=== PATIENT | male | born 1935 | race Hispanic/Latino ===

== ENCOUNTER 2017-06-24 18:42 | Inpatient (IN) | payer MEDICARE, MEDICAID ==
[2017-06-24 19:21] VITALS: BMI 28.7
[2017-06-24] MEDS ORDERED: Albuterol-Ipratrop 3 mg / 0.5 (3 ml) UD IH STA (19:32)
--- NOTE | 2017-06-24 19:38 | ED PDOC ---
Arrival/HPI - General Chief Complaint: Weakness/Neurological Deficit Time Seen by Provider: 06/24/17 19:11 Historian: Patient - History of Present Illness Narrative History of Present Illness (Text): 06/24/17 19:42 A 81 year old male, whose past medical history includes hypertension, bipolar disorder, ventricular hernia, and diabetes, presents to the emergency department complaining of generalized weakness, near syncopal, and shortness of breath. Patient denies of any chest pain, nausea, vomiting, diarrhea, headache, or any other complaints. No PMD Symptom Onset: Sudden Symptom Course: Unchanged Activities at Onset: Light Context: Home Past Medical History - Provider Review Nursing Documentation Reviewed: Yes - Infectious Disease Hx of Infectious Diseases: None - Tetanus Immunization Tetanus Immunization: Unknown - Cardiac Hx Cardiac Disorders: No Hx Hypertension: No - Pulmonary Hx Tuberculosis: No - Neurological HX Cerebrovascular Accident: No Hx Seizures: No - Hematological/Oncological Hx Cancer: No - Genitourinary/Gynecological Hx Sexually Transmitted Diseases: No - Psychiatric Hx Depression: No Hx Emotional Abuse: No Hx Physical Abuse: No Hx Substance Use: No - Past Surgical History Past Surgical History: Unable to Obtain - Suicidal Assessment Feels Threatened In Home Enviroment: No Family/Social History - Physician Review Nursing Documentation Reviewed: Yes Family/Social History: No Known Family HX Smoking Status: Never Smoked Hx Alcohol Use: No Hx Substance Use: No Hx Substance Use Treatment: No Allergies/Home Meds Allergies/Adverse Reactions: Allergies No Known Allergies Allergy (Verified 10/12/13 10:33) Review of Systems - Physician Review All systems were reviewed & negative as marked: Yes - Review of Systems Constitutional: Other (generalized weakness). absent: Fevers Respiratory: SOB Cardiovascular: absent: Chest Pain, Syncope (near-syncopal episode) Gastrointestinal: absent: Diarrhea, Nausea, Vomiting Neurological: absent: Headache Physical Exam Vital Signs Reviewed: Yes Vital Signs Pulse Resp BP Pulse Ox 06/24/17 23:29 110/69 06/24/17 23:28 76 18 110/69 97 06/24/17 19:09 84 16 105/84 96 Blood Pressure: Normal Pulse: Regular Respiratory Rate: Other Pain Distress: None Mental Status: Positive for: Alert and Oriented X 3 - Systems Exam Head: Present: Atraumatic, Normocephalic Pupils: Present: PERRL Extroacular Muscles: Present: EOMI Conjunctiva: Present: Normal Mouth: Present: Moist Mucous Membranes Neck: Present: Normal Range of Motion Respiratory/Chest: Present: Wheezes (bilaterally) Cardiovascular: Present: Regular Rate and Rhythm, Normal S1, S2. No: Murmurs Abdomen: Present: Hernias (enlarged ventral hernia noticeable and reducable) Back: Present: Normal Inspection Upper Extremity: Present: Normal Inspection. No: Cyanosis, Edema Lower Extremity: Present: Edema (+1 pitting edema) Neurological: Present: GCS=15, CN II-XII Intact, Speech Normal Skin: Present: Warm, Dry, Normal Color. No: Rashes Psychiatric: Present: Alert, Oriented x 3, Normal Insight, Normal Concentration Medical Decision Making ED Course and Treatment: 06/24/17 19:45 Impression: 81 year old male with generalized weakness, near syncope, and shortness of breath. Plan: -- EKG -- Chest X-ray -- CT Head w/o contrast -- Lower Extremity Ultrasound -- Labs -- Duoneb -- Reassess and disposition Progress Notes: Reviewed EKG, NSR at 88 bpm. Inferior infarct. Non-specific ST/T wave changes. 06/24/17 22:17 CXR reviewed, shows minimally increased pulmonary vascular markings. Pt uncooperative while in US, Lower Extremity US unable to be completed. 06/24/17 22:[address] Estevez, who is aware and agrees with plan. Accepts pt in to her service. Pt will go to Telemetry observation for near-syncope and CHF. Requests Dr. Brian and Dr. Hill on consult. 06/25/17 00:21 CT Head shows: There is atrophy. There is chronic small vessel ischemic disease. Encephalomalacia in the right cerebellum. There is no hemorrhage or edema. Mild mucosal thickening of the ethmoid and frontal sinuses. The osseous structures are normal. IMPRESSION: No acute findings. - Lab Interpretations Lab Results: 06/24/17 19:55 06/24/17 19:55 Lab Results 06/24/17 19:55: WBC 9.8, RBC 4.31, Hgb 15.1, Hct 44.7, MCV 103.7, MCH 35.0, MCHC 33.8, RDW 14.4, Plt Count 135, MPV 11.2 H 06/24/17 19:55: PT 12.4, INR 1.09 H, APTT 30.4 06/24/17 19:55: Sodium 145, Potassium 4.5, Chloride 106, Carbon Dioxide 28, Anion Gap 15, BUN 30 H, Creatinine 1.1, Est GFR ( Amer) > 60, Est GFR ( Non-Af Amer) > 60, Random Glucose 107, Calcium 9.3, Total Bilirubin 0.7, AST 70 H, ALT 47, Alkaline Phosphatase 37 L, Lactate Dehydrogenase 583, Total Creatine Kinase 249 H, CK-MB (CK-2) 2.0, CK-MB (CK-2) % Cancelled, Troponin I 0.02, NT- Pro-B Natriuret Pep 1030 H, Total Protein 7.2, Albumin 3.9, Globulin 3.3, Albumin/Globulin Ratio 1.2 I have reviewed the lab results: Yes - RAD Interpretation Radiology Orders: 06/24/17 19:31 CHEST PORTABLE [RAD] Stat 06/24/17 19:32 DUPLEX LOWER EXTRM VEIN RIGHT [US] Stat 06/24/17 20:03 HEAD W/O CONTRAST [CT] Stat Pin Inserter: ED Physician - EKG Interpretation Interpreted by ED Physician: Yes Type: 12 lead EKG - Medication Orders Current Medication Orders: Discontinued Medications Albuterol/Ipratropium (Duoneb 3 Mg/0.5 Mg (3 Ml) Ud) 3 ml IH ONCE STA Stop: 06/24/17 19:33 Last Admin: 06/24/17 20:17 Dose: 3 ml Furosemide (Lasix) 40 mg IVP ONCE ONE Stop: 06/24/17 22:11 Last Admin: 06/24/17 23:29 Dose: 40 mg MAR Blood Pressure Document 06/24/17 23:29 EQ (Rec: 06/24/17 23:29 EQ [id number]) Blood Pressure Blood Pressure (100/60-150/90 mm Hg) 110/69 IVP Administration Document 06/24/17 23:29 EQ (Rec: 06/24/17 23:29 EQ [id number]) Charges for Administration # of IVP Administrations 1 Haloperidol Lactate (Haldol) 5 mg IVP STAT STA PRN Reason: Protocol Stop: 06/24/17 22:42 Last Admin: 06/24/17 22:48 Dose: 5 mg IVP Administration Document 06/24/17 22:48 EQ (Rec: 06/24/17 22:48 EQ [id number]) Charges for Administration # of IVP Administrations 1 Lorazepam (Ativan) 1 mg IVP ONCE ONE Stop: 06/24/17 20:54 Last Admin: 06/24/17 21:50 Dose: 1 mg IVP Administration Document 06/24/17 21:50 EQ (Rec: 06/24/17 22:26 EQ [id number]) Charges for Administration # of IVP Administrations 1 Lorazepam (Ativan) 1 mg IVP ONCE ONE Stop: 06/24/17 22:19 Last Admin: 06/24/17 22:47 Dose: 1 mg IVP Administration Document 06/24/17 22:47 EQ (Rec: 06/24/17 22:47 EQ [id number]) Charges for Administration # of IVP Administrations 1 - Scribe Statement The provider has reviewed the documentation as recorded by the Ewa Llanes Provider Scribe Attestation: All medical record entries made by the Corineibprecious were at my direction and personally dictated by me. I have reviewed the chart and agree that the record accurately reflects my personal performance of the history, physical exam, medical decision making, and the department course for this patient. I have also personally directed, reviewed, and agree with the discharge instructions and disposition. Disposition/Present on Arrival - Present on Arrival Any Indicators Present on Arrival: No History of DVT/PE: No History of Uncontrolled Diabetes: No Urinary Catheter: No History of Decub. Ulcer: No History Surgical Site Infection Following: None - Disposition Have Diagnosis and Disposition been Completed?: Yes Diagnosis: CHF (congestive heart failure), Near syncope, Bipolar disorder Disposition: HOSPITALIZED Disposition Time: 22:32 Patient Plan: Admission Patient Problems: Current Active Problems Problem Status Onset Bipolar disorder Acute CHF (congestive heart failure) Acute Near syncope Acute Condition: STABLE
[2017-06-24 20:09] LABS: HEMOGLOBIN 15.1 g/dL (14.0-18.0); MEAN CELL VOLUME 103.7 fl (80.0-105.0); MEAN CORPUSCULAR HGB CONC 33.8 g/dl (31.0-37.0); MEAN PLATELET VOLUME 11.2 fl (7.0-11.0); RBC 4.31 10^6/uL (3.5-6.1); RED CELL DISTRIBUTION WIDTH 14.4 % (11.5-14.5); WHITE BLOOD COUNT 9.8 10^3/ul (4.5-11.0)
[2017-06-24 20:28] LABS: ALB/GLOB RATIO 1.2 (1.1-1.8); ALBUMIN 3.9 g/dL (3.0-4.8); ALT/SGPT 47 U/L (7-56); AST/SGOT 70 U/L (17-59); CALCIUM 9.3 mg/dL (8.4-10.5); GFR AFRICAN-AMERICAN > 60; GFR NON-AFRICAN AMERICAN > 60; INR 1.09 (0.93-1.08); PARTIAL THROMBOPLASTIN TIME 30.4 Seconds (25.1-36.5); PROTHROMBIN TIME 12.4 SECONDS (9.4-12.5)
[2017-06-24 20:40] LABS: B-TYPE NATRIURETIC PEPTIDE 1030 pg/mL (0-450); TROPONIN I 0.02 ng/mL
[2017-06-24 20:54] LABS: BLOOD UREA NITROGEN 30 mg/dL (7-21)
--- NOTE | 2017-06-25 00:22 | CT ---
EXAM: CT Head Without Intravenous Contrast EXAM DATE/TIME: 06/24/2017 8:03 PM CLINICAL HISTORY: 81 years old, male; Signs and symptoms; Other: Syncope; Additional info: Near syncope TECHNIQUE: Axial computed tomography images of the head/brain without intravenous contrast. All CT scans at this facility use one or more dose reduction techniques, viz.: automated exposure control; ma/kV adjustment per patient size (including targeted exams where dose is matched to indication; i.e. head); or iterative reconstruction technique. Coronal and sagittal reformatted images were created and reviewed. COMPARISON: No relevant prior studies available. FINDINGS: There is atrophy. There is chronic small vessel ischemic disease. Encephalomalacia in the right cerebellum. There is no hemorrhage or edema. Mild mucosal thickening of the ethmoid and frontal sinuses. The osseous structures are normal. IMPRESSION: No acute findings.
[2017-06-25] MEDS ORDERED: Albuterol-Ipratrop 3 mg / 0.5 (3 ml) UD ONE (01:20)
[2017-06-25] MEDS ORDERED: Albuterol-Ipratrop 3 mg / 0.5 (3 ml) UD IH STA (01:28)
--- NOTE | 2017-06-25 02:13 | CP.PCM.PN ---
Subjective - Date & Time of Evaluation Date of Evaluation: 06/25/17 Time of Evaluation: 02:09 - Subjective Subjective: Patient was seen at bedside. Nurse calls and tells that patient has sob, wheezing, congestion, rales all over. 81 year old white male admitted with near syncopal episode, generalized weaknes , sob/CHF. Has PMH of HTN,bipolar disorder, ventral hernia,CHF. Objective - Vital Signs/Intake and Output Vital Signs (last 24 hours): Temp Pulse Resp BP Pulse Ox 97.9 F 88 17 113/64 96 06/25/17 01:00 06/25/17 01:00 06/25/17 01:00 06/25/17 01:00 06/25/17 01:00 - Labs Labs: PT 12.4 SECONDS (9.4-12.5) 06/24/17 19:55 INR 1.09 (0.93-1.08) H 06/24/17 19:55 APTT 30.4 Seconds (25.1-36.5) 06/24/17 19:55 Most Recent Lab Values WBC 9.8 10^3/ul (4.5-11.0) 06/24/17 19:55 RBC 4.31 10^6/uL (3.5-6.1) 06/24/17 19:55 Hgb 15.1 g/dL (14.0-18.0) 06/24/17 19:55 Hct 44.7 % (42.0-52.0) 06/24/17 19:55 MCV 103.7 fl (80.0-105.0) 06/24/17 19:55 MCH 35.0 pg (25.0-35.0) 06/24/17 19:55 MCHC 33.8 g/dl (31.0-37.0) 06/24/17 19:55 RDW 14.4 % (11.5-14.5) 06/24/17 19:55 Plt Count 135 10^3/uL (120.0-450.0) 06/24/17 19:55 MPV 11.2 fl (7.0-11.0) H 06/24/17 19:55 PT 12.4 SECONDS (9.4-12.5) 06/24/17 19:55 INR 1.09 (0.93-1.08) H 06/24/17 19:55 APTT 30.4 Seconds (25.1-36.5) 06/24/17 19:55 Sodium 145 mmol/L (132-148) 06/24/17 19:55 Potassium 4.5 mmol/L (3.6-5.0) 06/24/17 19:55 Chloride 106 mmol/L (98-107) 06/24/17 19:55 Carbon Dioxide 28 mmol/L (21-33) 06/24/17 19:55 Anion Gap 15 (10-20) 06/24/17 19:55 BUN 30 mg/dL (7-21) H 06/24/17 19:55 Creatinine 1.1 mg/dl (0.8-1.5) 06/24/17 19:55 Est GFR ( Amer) > 60 06/24/17 19:55 Est GFR (Non-Af Amer) > 60 06/24/17 19:55 Random Glucose 107 mg/dL (70-110) 06/24/17 19:55 Calcium 9.3 mg/dL (8.4-10.5) 06/24/17 19:55 Total Bilirubin 0.7 mg/dL (0.2-1.3) 06/24/17 19:55 AST 70 U/L (17-59) H 06/24/17 19:55 ALT 47 U/L (7-56) 06/24/17 19:55 Alkaline Phosphatase 37 U/L (38-126) L 06/24/17 19:55 Lactate Dehydrogenase 583 U/L (333-699) 06/24/17 19:55 Total Creatine Kinase 249 U/L (35-230) H 06/24/17 19:55 CK-MB (CK-2) 2.0 ng/mL (0.0-3.6) 06/24/17 19:55 CK-MB (CK-2) % Cancelled 06/24/17 19:55 Troponin I 0.02 ng/mL 06/24/17 19:55 NT-Pro-B Natriuret Pep 1030 pg/mL (0-450) H 06/24/17 19:55 Total Protein 7.2 g/dL (5.8-8.3) 06/24/17 19:55 Albumin 3.9 g/dL (3.0-4.8) 06/24/17 19:55 Globulin 3.3 gm/dL 06/24/17 19:55 Albumin/Globulin Ratio 1.2 (1.1-1.8) 06/24/17 19:55 - Constitutional Appears: Well, No Acute Distress - Head Exam Head Exam: ATRAUMATIC, NORMAL INSPECTION, NORMOCEPHALIC - Eye Exam Eye Exam: Normal appearance - ENT Exam ENT Exam: Normal External Ear Exam - Neck Exam Neck Exam: Normal Inspection - Respiratory Exam Respiratory Exam: Rales (Bilateral.), Rhonchi (Present.), NORMAL BREATHING PATTERN - Cardiovascular Exam Cardiovascular Exam: REGULAR RHYTHM - GI/Abdominal Exam GI & Abdominal Exam: absent: Distended - Rectal Exam Rectal Exam: Deferred - Exam Additional comments: Deferred. - Extremities Exam Extremities Exam: Normal Inspection, Pedal Edema (+) - Back Exam Back Exam: NORMAL INSPECTION - Neurological Exam Neurological Exam: Alert, Awake - Psychiatric Exam Psychiatric exam: Depressed, Normal Affect - Skin Skin Exam: Normal Color Assessment and Plan - Assessment and Plan (Free Text) Assessment: HTN. Bipolar disorder. Hx ventral hernia. Elevated BNP. Elevated CK. Elevated AST. Plan: Lasix 40 mg IV stat. Duoneb neb treatment stat. Tylenol 650 mg PO stat, then Q4H prn Temp > 100.4*F. Continue management as per PMD.
--- NOTE | 2017-06-25 08:37 | RAD ---
HISTORY: sob COMPARISON: 10/12/2013 FINDINGS: LUNGS: No active pulmonary disease. PLEURA: No significant pleural effusion identified, no pneumothorax apparent. CARDIOVASCULAR: Normal. OSSEOUS STRUCTURES: No significant abnormalities. VISUALIZED UPPER ABDOMEN: Normal. OTHER FINDINGS: None. IMPRESSION: No active disease.
[2017-06-25] MEDS: Divalproex 250 mg DR (BID formulation) PO SCH ×3 (09:39→19:59)
[2017-06-25] MEDS: Insulin Reg-LOW-Coverage SC SCH ×3 (13:20→22:00)
[2017-06-25] MEDS ORDERED: cefTRIAXone 1 gm 1 GM/100 ML BAG IVPB STA (18:45)
[2017-06-25] MEDS: Albuterol-Ipratrop 3 mg / 0.5 (3 ml) UD IH SCH (19:43)
--- NOTE | 2017-06-26 01:33 | CON ---
DATE: HISTORY OF PRESENT ILLNESS: This is a 81-year-old male with past medical history of hypertension, bipolar disorder, and diabetes, who came to hospital with generalized weakness and had a severe syncopal episode and called to evaluated the patient. CAT scan of the head was done, which was reported negative. The patient complained of generalized and shortness of breath. PAST MEDICAL HISTORY: As above. ALLERGIES: NO KNOWN DRUG ALLERGIES. REVIEW OF SYSTEMS: A 10-point review of system, the patient is confused and not following commands. PHYSICAL EXAMINATION: VITAL SIGNS: Blood pressure 105/84. HEENT: Normocephalic, atraumatic. NECK: Supple. NEUROLOGIC: Awake, drowsy, confused, not following simple commands. Pupils reactive. EOM intact. No facial asymmetry. Tongue midline. Motor: Spontaneous movement of the extremities noted. Deep tendon reflexes 1+. Both plantars are downgoing. Sensory appears intact. Cerebellar, gait deferred. LABORATORY DATA: WBC 9.8, hemoglobin 15.1, hematocrit 44.7, and platelets 135. Sodium 145, potassium 4.5, chloride 106, CO2 28, glucose 107, BUN 30, and creatinine 1.1. IMPRESSION: Encephalopathy, CAT of the head did not show any acute findings. PLAN: Workup in progress. Continue present management. We will do EEG. Follow up the results. Umer Brian MD
--- NOTE | 2017-06-26 01:49 | CON ---
DATE: 06/25/2017 LOCATION: The patient in room 376, bed 1. REASON FOR CONSULTATION: Hypertension and shortness of breath. HISTORY OF PRESENT ILLNESS: A 81-year-old male who was known to have bipolar disorder, hypertension, diabetes, high cholesterol, large ventral hernia came to Emergency Room at [facility] with generalized weakness, near syncope, shortness of breath. As per notes from the Emergency Room, the patient right now does not give answers to my questions, but he is awake and alert. The patient wear diapers because of urinary incontinence. PAST MEDICAL HISTORY: Positive for bipolar disorder, hypertension, diabetes, high cholesterol, large ventral hernia, and urinary incontinence. PERSONAL HISTORY: No history of smoking or drinking. ALLERGIES: NO KNOWN ALLERGIES. MEDICATIONS AT HOME: The patient was on lisinopril 2.5 mg daily, glipizide 2.5 daily, Zantac 150 b.i.d., Lasix 20 mg p.o. daily, Aricept 10 mg at bedtime, Depakote DR 750 t.i.d., Plavix 75 mg daily, Coreg 3.125 b.i.d., atorvastatin 80 mg daily, aspirin 81 mg daily, and Xanax 0.5 t.i.d. REVIEW OF SYSTEMS: All other systems reviewed, positive mentioned in the HPI, others were negative. PHYSICAL EXAMINATION: VITAL SIGNS: Blood pressure 145/80, respirations 19, pulse 60, and temperature 99.7. HEENT: Head is normocephalic. Eyes: Pupils normal. Conjunctivae normal. Nose and throat normal. NECK: JVP low. Carotids equal. THORAX: AP diameter normal. LUNGS: No rales. CARDIOVASCULAR: S1 and S2. ABDOMEN: Large ventral hernia. Protuberant abdomen. EXTREMITIES: No clubbing. No cyanosis. LABORATORY DATA: Shows WBC 9.8, hemoglobin 15.1, hematocrit 44.7 and platelet 135. Sodium 145, potassium 4.5, BUN 30, creatinine 1.1, glucose 144, other glucose 107. AST 70 and ALT 47. Troponin 0.02. NT-pro brain natriuretic peptide 1030. Total protein 7.2, albumin 3.9. Prothrombin time 12.4. INR 1.09. PTT 30.4. Chest x-ray is clear. Echocardiogram regular sinus rhythm. Extremities ultrasound, the patient was sent for extremity ultrasound, but the patient was uncooperative, it could not be done. DIAGNOSES: Shortness of breath, the patient might have respiratory tract infection, bipolar disorder, hypertension, diabetes, high cholesterol, large ventral hernia, near syncope, and urinary incontinence. PLAN: The patient is on aspirin 81 mg daily, carvedilol 3.125 b.i.d., Depakote DR 750 p.o. t.i.d., DuoNeb hand nebulizer therapy, and glipizide 2.5 p.o. before meals daily. The patient is on Lasix 40 IV b.i.d., we will change it to 20 IV daily, Lipitor 80 mg daily, Pepcid 150 b.i.d., Plavix 75 daily, lisinopril 2.5 daily, and Xanax 0.5 t.i.d. We will add Rocephin 1 g IV daily and erythromycin 500 mg IV daily and we will do an echocardiogram to evaluate LV function and we will follow with you. Parker Mccall MD
--- NOTE | 2017-06-26 02:45 | HP ---
CHIEF COMPLAINT: Weakness, almost passing out. HISTORY OF PRESENT ILLNESS: Mr. Steven Morris is a 81-year-old male with a past medical history of schizophrenia, hypertension, bipolar, anterior abdominal wall hernia, diabetes mellitus came to the emergency department complaining of generalized weakness and near syncope, shortness of breath. The patient is a poor historian. Denies fever and chills. No nausea, vomiting, or diarrhea. No headaches. No injuries. The patient is a resident of [facility]. PAST MEDICAL HISTORY: Schizophrenia, bipolar, anterior abdominal wall hernia, hypertension, and diabetes mellitus. FAMILY HISTORY: Father and mother noncontributory. HABITS: Never smoked. No drugs. No ethanol. ALLERGIES: THE PATIENT IS NOT ALLERGIC WITH ANY MEDICATION. REVIEW OF SYSTEMS: The patient is here examined at the bedside in his room. He is on one-to-one. He was slight weak and lethargic, not on his baseline. More confused. Complaining of shortness of breath. No fever. No chills. No chest pain. Feeling of syncope. Presyncope episode. No diarrhea, nausea, or vomiting. No headache. No dizziness. PHYSICAL EXAMINATION VITAL SIGNS: Temperature 98.6, pulse 84, respirations 16, blood pressure 105/84, and pulse oximetry 96%. HEENT: Head normocephalic, atraumatic. Eyes: PERRLA. Extraocular muscles intact. Conjunctivae clear. Nose patent. Mucous membranes moist. NECK: Supple. No carotid bruits or thyromegaly. CHEST: Bilaterally symmetrical. HEART: S1 and S2 positive. LUNGS: Clear to auscultation. ABDOMEN: Soft. Bowel sounds positive. No organomegaly. A large ventral hernia notable and reducible. EXTREMITIES: Trace edema. No cyanosis. NEUROLOGICAL: Awake and alert. Speech is normal, but he is sleepy and arousable. Moving all four extremities. Does not look like any focal deficit. LABORATORY DATA: White blood cells 9.8, hemoglobin 15.5, hematocrit 44.7, and platelets 135,000. Sodium 145, potassium 4.5, BUN 30, creatinine 1.1, glucose 107. ASSESSMENT AND PLAN: Mr. Steven Morris is a 81-year-old male came with generalized weakness and near syncope, shortness of breath, history of hypertension, hypercholesterolemia, history of bipolar, and schizophrenia. We admitted the patient. Neurology consult called with Dr. Brian. CAT scan of the head was done and reviewed by me. Seen by Dr. Buenrostro, [facility] physician. For shortness of breath, wheezing, congestion, rales all over, got dose of Lasix. Rule out congestive heart failure and history of anterior abdominal wall ventral hernia. Cardiology consult called. Neurology consult called. Repeat labs. We will follow up. January Estevez MD
[2017-06-26 07:37] LABS: CALCIUM 8.8 mg/dL (8.4-10.5)
[2017-06-26 07:50] LABS: HEMOGLOBIN 15.1 g/dL (14.0-18.0); MEAN CELL VOLUME 103.7 fl (80.0-105.0); MEAN CORPUSCULAR HEMOGLOBIN 34.5 pg (25.0-35.0); MEAN CORPUSCULAR HGB CONC 33.3 g/dl (31.0-37.0); MEAN PLATELET VOLUME 11.4 fl (7.0-11.0); RBC 4.38 10^6/uL (3.5-6.1); RED CELL DISTRIBUTION WIDTH 15.1 % (11.5-14.5)
[2017-06-26] MEDS: Insulin Reg-LOW-Coverage SC SCH ×4 (08:21→21:45)
[2017-06-26] MEDS: Albuterol-Ipratrop 3 mg / 0.5 (3 ml) UD IH SCH ×3 (08:26→21:21)
--- NOTE | 2017-06-26 10:12 | CARD ---
APPROVED REPORT EKG Measurement Heart [id number] <Conclusion> Normal sinus rhythm Low voltage QRS Inferior infarct, age undetermined Cannot rule out Anteroseptal infarct, age undetermined Abnormal ECG
[2017-06-26 12:40] LABS: HEPATITIS B SURFACE AG NEGATIVE (NEGATIVE)
[2017-06-26 12:46] LABS: HEPATITIS A IGM NEGATIVE (NEGATIVE); HEPATITIS B CORE AB Negative (NEGATIVE)
[2017-06-26] MEDS: Divalproex 250 mg DR (BID formulation) PO SCH ×3 (12:48→17:08)
[2017-06-26] MEDS: cefTRIAXone 1 gm 1 GM/100 ML BAG IVPB SCH (12:52)
--- NOTE | 2017-06-26 13:02 | US ---
PROCEDURE: Right lower extremity venous US HISTORY: Leg pain and swelling. Evaluate for DVT. PHYSICIAN(S): Denis Sharif M.D. TECHNIQUE: Duplex sonography and color-flow Doppler with graded compression were used to evaluate the deep venous system of the right lower extremity. FINDINGS: The patient became combative and refused the lower portion of the examination. The visualized deep venous system of the upper right extremity is normal and compressible. The right popliteal and tibial veins are not imaged. IMPRESSION: 1. No sonographic evidence for deep venous thrombosis in the visualized segments of the right lower extremity. 2. Very limited study. The lower aspect of the examination was not completed
--- NOTE | 2017-06-26 13:28 | CP.PCM.PN ---
<AsherJennifer - Last Filed: 06/26/17 13:43> Subjective - Date & Time of Evaluation Date of Evaluation: 06/26/17 Time of Evaluation: 10:00 - Subjective Subjective: Neurology Progress Note PGY-[address] Brian Pt is forgetful and answered "I don't know" to many questions. He did not remember what brought him in the the hospital. Objective - Vital Signs/Intake and Output Vital Signs (last 24 hours): Temp Pulse Resp BP Pulse Ox 97.1 F L 102 H 22 125/85 93 L 06/26/17 08:00 06/26/17 13:11 06/26/17 08:00 06/26/17 13:11 06/26/17 08:00 Intake and Output: 06/26/17 06/26/17 06:59 18:59 Intake Total 120 Output Total 250 Balance -130 - Medications Medications: Current Medications Acetaminophen (Tylenol 325mg Tab) 650 mg PO Q4H PRN PRN Reason: Temperature Last Admin: 06/25/17 22:34 Dose: 650 mg Albuterol/Ipratropium (Duoneb 3 Mg/0.5 Mg (3 Ml) Ud) 3 ml IH [id number] [facility] Last Admin: 06/26/17 08:26 Dose: 3 ml Alprazolam (Xanax) 0.5 mg PO TID [facility] PRN Reason: Protocol Stop: 07/02/17 10:01 Last Admin: 06/25/17 19:59 Dose: Not Given Aspirin (Aspirin Chewable) 81 mg PO DAILY [facility] Last Admin: 06/26/17 12:49 Dose: 81 mg Atorvastatin Calcium (Lipitor) 80 mg PO 1800 [facility] Last Admin: 06/25/17 18:25 Dose: 80 mg Carvedilol (Coreg) 3.125 mg PO BID [facility] Last Admin: 06/26/17 13:11 Dose: 3.125 mg Clopidogrel Bisulfate (Plavix) 75 mg PO DAILY [facility] Last Admin: 06/26/17 12:52 Dose: 75 mg Divalproex Sodium (Depakote Dr (*Bid*)) 750 mg PO TID [facility] Last Admin: 06/26/17 12:48 Dose: 750 mg Donepezil HCl (Aricept) 10 mg PO HS [facility] Last Admin: 06/25/17 22:34 Dose: Not Given Furosemide (Lasix) 20 mg IVP DAILY [facility] Last Admin: 06/26/17 12:49 Dose: 20 mg Glipizide (Glucotrol) 2.5 mg PO ACB [facility] Last Admin: 06/26/17 08:55 Dose: 2.5 mg Ceftriaxone Sodium (Rocephin 1 Gram Ivpb) 1 gm in 100 mls @ 100 mls/hr IVPB DAILY [facility] PRN Reason: Protocol Stop: 07/03/17 10:01 Last Admin: 06/26/17 12:52 Dose: 100 mls/hr Insulin Human Regular (Humulin R Low) 0 units SC ACHS [facility] PRN Reason: Protocol Last Admin: 06/26/17 12:43 Dose: Not Given Lisinopril (Zestril) 2.5 mg PO DAILY [facility] Last Admin: 06/25/17 09:40 Dose: 2.5 mg - Labs Labs: 06/26/17 06:30 06/26/17 06:30 PT 12.4 SECONDS (9.4-12.5) 06/24/17 19:55 INR 1.09 (0.93-1.08) H 06/24/17 19:55 APTT 30.4 Seconds (25.1-36.5) 06/24/17 19:55 - Constitutional Appears: No Acute Distress - Head Exam Head Exam: ATRAUMATIC, NORMAL INSPECTION, NORMOCEPHALIC - Eye Exam Eye Exam: EOMI, Normal appearance, PERRL Pupil Exam: NORMAL ACCOMODATION - ENT Exam ENT Exam: Mucous Membranes Dry - Neck Exam Additional comments: supple - Respiratory Exam Respiratory Exam: Clear to Ausculation Bilateral, Rales, Wheezes, NORMAL BREATHING PATTERN - Cardiovascular Exam Cardiovascular Exam: REGULAR RHYTHM, +S1, +S2. absent: Murmur - GI/Abdominal Exam GI & Abdominal Exam: Soft, Normal Bowel Sounds. absent: Guarding, Rigid, Tenderness - Extremities Exam Extremities Exam: Pedal Edema. absent: Calf Tenderness - Neurological Exam Neurological Exam: Awake Additional comments: AAOx2 Speech slow but fluent Recall 0 Motor 4+/5 all extremities Sensory intact - Psychiatric Exam Psychiatric exam: Normal Affect, Normal Mood - Skin Skin Exam: Dry, Warm Assessment and Plan - Assessment and Plan (Free Text) Plan: Consult: Near syncope and weakness. Confusion Mr Morris, 81M, whose PMH includes CHF, CAD on ASA/Plavix, hypertension, diabetes , and bipolar disorder/Schizoprenia, presents to the emergency department on c/o generalized weakness, near syncope, and shortness of breath. On admission, pt had a mild Temperature T-MAX at 99.9. HR 124. POx 92 on NC. CBC normal except MCV 103.7. Trop is negative. BNP 1030. CXR showed minimally increased pulmonary vascular markings. Pt uncooperative while in US, Lower Extremity US was nunable to be completed. CT head w/o contrast showed no acute finding. (+) Encephalomalacia R cerebellum, no hemorrhage or edema. (+) atropy, chronic small vessel ischemic disease. Mild mucosal thickening in ethmoid and frontal sinuses. BP is 97/63 this AM which likely contribute to the VAMSHI, with creatinine rising from 1.1 to 2.6. AMS likely due to cerebral hypoperfusion secondary CHF exacerbation, BP 97/63, VAMSHI CHF s/p 4 doses of lasix IV 40 in a day - ASA 81 and Lipitor high-dose for stroke prevention - Maintain SBP above 120 - Maintain blood glucose 140-180 - Avoid rapid movement - Neurology will sign off - Continue medical management per primary team Suspected past stroke - (+) Encephalomalacia R cerebellum Tmax 99.9. s/p Ceftriaxone x 1. s/r/d/w Dr. Brian <Don Brian - Last Filed: 06/26/17 15:22> Objective - Vital Signs/Intake and Output Vital Signs (last 24 hours): Temp Pulse Resp BP Pulse Ox 97.1 F L 102 H 22 125/85 93 L 06/26/17 08:00 06/26/17 13:11 06/26/17 08:00 06/26/17 13:11 06/26/17 08:00 Intake and Output: 06/26/17 06/26/17 06:59 18:59 Intake Total 120 Output Total 250 Balance -130 - Medications Medications: Current Medications Acetaminophen (Tylenol 325mg Tab) 650 mg PO Q4H PRN PRN Reason: Temperature Last Admin: 06/25/17 22:34 Dose: 650 mg Albuterol/Ipratropium (Duoneb 3 Mg/0.5 Mg (3 Ml) Ud) 3 ml IH [id number] [facility] Last Admin: 06/26/17 15:17 Dose: 3 ml Alprazolam (Xanax) 0.5 mg PO TID [facility] PRN Reason: Protocol Stop: 07/02/17 10:01 Last Admin: 06/26/17 15:16 Dose: Not Given Aspirin (Aspirin Chewable) 81 mg PO DAILY [facility] Last Admin: 06/26/17 12:49 Dose: 81 mg Atorvastatin Calcium (Lipitor) 80 mg PO 1800 [facility] Last Admin: 06/25/17 18:25 Dose: 80 mg Carvedilol (Coreg) 3.125 mg PO BID [facility] Last Admin: 06/26/17 13:11 Dose: 3.125 mg Clopidogrel Bisulfate (Plavix) 75 mg PO DAILY [facility] Last Admin: 06/26/17 12:52 Dose: 75 mg Divalproex Sodium (Depakote Dr (*Bid*)) 750 mg PO TID [facility] Last Admin: 06/26/17 15:17 Dose: Not Given Donepezil HCl (Aricept) 10 mg PO HS [facility] Last Admin: 06/25/17 22:34 Dose: Not Given Furosemide (Lasix) 20 mg IVP DAILY [facility] Last Admin: 06/26/17 12:49 Dose: 20 mg Glipizide (Glucotrol) 2.5 mg PO ACB [facility] Last Admin: 06/26/17 08:55 Dose: 2.5 mg Ceftriaxone Sodium (Rocephin 1 Gram Ivpb) 1 gm in 100 mls @ 100 mls/hr IVPB DAILY [facility] PRN Reason: Protocol Stop: 07/03/17 10:01 Last Admin: 06/26/17 12:52 Dose: 100 mls/hr Insulin Human Regular (Humulin R Low) 0 units SC [facility] PRN Reason: Protocol Last Admin: 06/26/17 12:43 Dose: Not Given Lisinopril (Zestril) 2.5 mg PO DAILY [facility] Last Admin: 06/25/17 09:40 Dose: 2.5 mg - Labs Labs: 06/26/17 06:30 06/26/17 06:30 PT 12.4 SECONDS (9.4-12.5) 06/24/17 19:55 INR 1.09 (0.93-1.08) H 06/24/17 19:55 APTT 30.4 Seconds (25.1-36.5) 06/24/17 19:55 Attending/Attestation - Attestation I have personally seen and examined this patient.: Yes I have fully participated in the care of the patient.: Yes I have reviewed all pertinent clinical information, including history, physical exam and plan: Yes
--- NOTE | 2017-06-26 16:21 | EEG ---
DATE: ELECTROENCEPHALOGRAM DIAGNOSIS: Altered mental status. CONDITION OF THE RECORDING: Drowsy. MEDICATIONS: Reviewed by nurse's reconciliation sheet. INTERPRETATION: This is a 16-channel international recording. Background activity of this tracing was composed of 8 cycles per second. There is a small amount of beta activity of 16 to 20 cycles per second seen in this recording. There was small amount of theta activity of 5 to 7 cycles per second seen in this tracing. Drowsiness was characterized by mixed beta and theta activities. Sleep was characterized by vertex transient waves and sleep spindles. Photic stimulation showed no change in tracing. No paroxysmal activity is noted in this recording. CONCLUSION: This is a normal drowsy EEG. No evidence of any epileptiform activity. Please clinically correlate. Don Brian MD
[2017-06-26] MEDS: Sodium Chloride 0.9% 1,000 ML IV SCH (16:54)
--- NOTE | 2017-06-26 18:18 | CARD ---
APPROVED REPORT EXAM: Two-dimensional and M-mode echocardiogram with Doppler and color Doppler. INDICATION Dyspnea LV Function:SystolicDiastolic 2D DIMENSIONS Left Atrium (2D)3.7 (1.6-4.0cm)IVSd1.4 (0.7-1.1cm) LVDd4.9 (3.9-5.9cm)PWd1.2 (0.7-1.1cm) M-Mode DIMENSIONS Aortic Root3.10 (2.2-3.7cm)Aortic Cusp Exc.1.50 (1.5-2.0cm) Aortic Valve AoV Peak [id number]/Levi Peak GR.5mmHg Mitral Valve E/A ratio0.0 TDI E/Lateral E'0.0E/Medial E'0.0 Tricuspid Valve TR Peak [id number] [id number] Peak Gr.20mmHg [id number] LEFT VENTRICLE The left ventricle is normal size. There is mild concentric left ventricular hypertrophy. Proximal septal thickening is noted. The systolic function is mildly impaired.40-45% There is mild hypokinesis in the apical anterior wall. Transmitral Doppler flow pattern is Grade III-reversible restrictive diastolic dysfunction. No left ventricle thrombus noted on this study. There is no ventricular septal defect visualized. There is no left ventricular aneurysm. There is no mass noted in the left ventricle. RIGHT VENTRICLE The right ventricle is normal size. There is normal right ventricular wall thickness. The right ventricular systolic function is normal. ATRIA The left atrium size is normal. The right atrium size is normal. The interatrial septum is intact with no evidence for an atrial septal defect. AORTIC VALVE The aortic valve is calcified but opens well. The aortic valve is moderately sclerotic. There is trace to mild aortic regurgitation. Aortic Sclerosis Vs Mild There is no aortic valvular vegetation. MITRAL VALVE The mitral valve is thickened but opens well. Mitral regurgitation is trace. There is no mitral valve stenosis. There is no evidence of mitral valve prolapse. TRICUSPID VALVE The tricuspid valve leaflets are thickened , but open well. There is trace to mild tricuspid regurgitation.RVSP-30 mmof hg. There is no tricuspid valve stenosis. There is no tricuspid valve prolapse or vegetation. PULMONIC VALVE The pulmonic valve is not well visualized. GREAT VESSELS The aortic root is normal in size. The ascending aorta is normal in size. The pulmonary artery is normal. The IVC was not visualized. PERICARDIAL EFFUSION There is no pleural effusion. There is no pericardial effusion. <Conclusion> The left ventricle is normal size. There is mild concentric left ventricular hypertrophy. The systolic function is mildly impaired.40-45% There is trace to mild aortic regurgitation. Aortic Sclerosis Vs Mild Mitral regurgitation is trace. There is trace to mild tricuspid regurgitation.RVSP-30 mmof hg. TDS poor sonic Window. Transmitral Doppler flow pattern is Grade III-reversible restrictive diastolic dysfunction.
[2017-06-26 18:49] LABS: HEPATITIS C ANTIBODY Negative (NEGATIVE)
--- NOTE | 2017-06-26 21:06 | PN ---
DATE: 06/26/2017 REASON FOR CONSULTATION AND FOLLOWUP: Hypertension and shortness of breath. SUBJECTIVE: The patient is lying flat on the bed. Denies any chest pain; shortness of breath, or any palpitation. OBJECTIVE: GENERAL: Not in apparent distress, lying flat with one-to-one observation. VITAL SIGNS: As follows; temperature afebrile, heart rate 80, and blood pressure 125/85. HEENT: PERRLA. Extraocular muscles intact. NECK: Supple. No carotid bruit or thyromegaly. CHEST: Clear to auscultation. HEART: S1 and S2 regular. ABDOMEN: Soft. EXTREMITIES: Clubbing and cyanosis negative. LABORATORY DATA: WBC 23, hemoglobin , hematocrit 45.4, and platelet count 147. Chemistry shows sodium 140, potassium , chloride 103, CO2 of 28, anion gap of 16, BUN 52, and creatinine 2.6. IMPRESSION: Altered mental status one-to-one observation, chronic heart failure, renal insufficiency acute on chronic, chronic kidney disease, shortness of breath secondary to respiratory tract infection, bipolar, depression, diabetes, hypertension, hyperlipidemia with large ventral hernia, urinary incontinence, came with a normal kidney, today creatinine went up to 2.6, probably acute kidney injury, probably secondary to dialysis, and rule out obstructive uropathy. Though, the patient's BNP is elevated, but the patient is not in failure, we will give a gentle hydration. RECOMMENDATIONS: We will give gentle hydration. Get echo to assess LV function and hold Lasix for now. We will consider ultrasound of the bladder kidney to rule out any obstructive uropathy. We will follow with you. Thank you Dr. Estevez for providing us the opportunity in taking care of Steven Morris. Parker Hill MD
--- NOTE | 2017-06-26 23:38 | PN ---
DATE: SUBJECTIVE: The patient is a 81-year-old male. The patient is seen and examined at the bedside, looking comfortable. No nausea, vomiting, or diarrhea. No hematemesis or hematochezia. He is confused, but awake and alert. No fever. No chills. No headache. No dizziness. PHYSICAL EXAMINATION: VITAL SIGNS: Temperature 97.2, pulse is 93, blood pressure 112/79, and respiratory rate is 20. HEENT: Head; normocephalic and atraumatic. Eyes; PERRLA. Extraocular muscles intact. Conjunctivae clear. Nose patent. Mucous membranes are moist. NECK: Supple. No carotid bruits, JVD or thyromegaly. CHEST: Bilaterally symmetrical. HEART: S1 and S2 positive. LUNGS: Clear to auscultation. ABDOMEN: Soft. Bowel sounds present. No organomegaly. EXTREMITIES: No edema. No cyanosis. NEUROLOGIC: The patient is awake and alert. Moving all four extremities. No focal deficits. MEDICATIONS: Donepezil, aspirin, carvedilol, Depakote, DuoNeb, glipizide, Lipitor, Plavix, Rocephin, Zestril, Xanax, and Tylenol. LABORATORY DATA: White blood cell 23, hemoglobin 15.5, hematocrit 45.4, and platelets 147. Sodium 143, potassium 4.3, BUN 52, creatinine 2.3, and glucose 124. ASSESSMENT AND PLAN: Mr. Steven Morris is a 81-year-old male with leukocytosis; renal insufficiency; hyperglycemia; congestive heart failure; hepatitis profile is negative; seen by neurologist Dr. Don Brian for presyncope; history of coronary artery disease, on aspirin and Plavix; hypertension; bipolar disorder; schizophrenia; and came with generalized weakness, near syncope, and shortness of breath. On admission has mild temperature T-max of 99.9. Chest x-ray showed minimally increased pulmonary vascular marking. Lower extremity ultrasound was unable to be completed because the patient was noncompliant. CT of the head showed no acute finding. Positive encephalomalacia. Right cerebellum, no hemorrhage or edema atrophy, chronic small vessel ischemic diseases, mild mucosal thickening in the ethmoid sinus and frontal sinus to rule out sinusitis. Creatinine is rising. January Estevez MD [facility]
[2017-06-27] MEDS: Albuterol-Ipratrop 3 mg / 0.5 (3 ml) UD IH SCH ×6 (02:14→19:49)
--- NOTE | 2017-06-27 06:28 | CON ---
DATE: 06/26/2017 PULMONARY CONSULTATION REFERRING PHYSICIAN: January Estevez MD. REASON FOR CONSULTATION: Shortness of breath, cough. HISTORY OF PRESENT ILLNESS: This is a 81-year-old gentleman, known history of schizophrenia, hypertension, bipolar disorder, history of diabetes, brought into Emergency Room with generalized weakness, not feeling well, near syncope episode, shortness of breath. No hemoptysis, no hematemesis, no hematuria, no diarrhea reported. At times, he is agitated, under one to one supervision. PAST MEDICAL HISTORY: Schizophrenia, hypertension, diabetes, may have bipolar disorder. SOCIAL HISTORY: Nonsmoker, nondrinker. FAMILY HISTORY: No significant cardiopulmonary disease reported. ALLERGIES: NONE KNOWN. MEDICATIONS: He is on Aricept 10 mg at bedtime, aspirin 81 mg daily, Coreg 3.125 mg twice a day, Depakote 750 mg three times a day, DuoNeb q. 6 hours, glipizide 2.5 mg a.c.b., insulin coverage, Lipitor 80 mg daily, Plavix 75 mg daily, Rocephin 1 g daily, IV fluid normal saline 50 mL per hour, Tylenol p.r.n., Xanax 0.5 mg three times a day, Zestril 2.5 mg daily. REVIEW OF SYSTEMS: No reported headache, no rhinitis. He has some cough and shortness of breath. No chest pain, no nausea, no vomiting, no diarrhea, no dysuria, no leg pain or leg swelling. PHYSICAL EXAMINATION: GENERAL: Lying in the bed, in no acute distress. VITAL SIGNS: Temperature 98, heart rate is 96, respiratory rate is 20, blood pressure 112/79, pulse ox is 92% on nasal cannula. HEENT: Moist mucous membranes. Crowded airway. Mallampati score is IV. NECK: Supple. No JVD. LUNGS: Decreased scattered rhonchi. HEART: S1 and S2. ABDOMEN: Soft, nontender. No organomegaly. EXTREMITIES: No edema. NEUROLOGICALLY: Awake, alert, follow simple commands. LABORATORY DATA: Shows hemoglobin 15.1, hematocrit 45.4, WBC 23,000, platelet count is 147. INR 1.09, PTT is 30. Sodium 143, potassium 4.3, chloride 103, bicarbonate 28, BUN 52, creatinine 2.6, glucose 122, hemoglobin A1c is 6.1, calcium is 8.8. ProBNP 2930. Cholesterol is 89, TSH 3.28. He had echocardiogram done, which shows LV ejection fraction estimated about 40% to 45%. The right ventricular systolic pressure is about 30. CAT scan of the head was done on admission showed no acute finding. He had extremity ultrasound done on admission, which shows no sonography evidence of DVT, has poor study. IMPRESSION AND PLAN: Cardiomyopathy with decreased left ventricular function, coronary artery disease, hypertension, diabetes, bipolar-schizophrenia disorder, agitated at times, may have bronchitis. There is no severe headache. There is no spiking fever. T-max was 99.9. Getting neurology and cardiac workup done. Pulmonary point of view, keep head at 45 degrees, supplement oxygen, titer to pulse oximetry 94 and above, gastric prophylaxis and deep venous thrombus prophylaxis, fall precaution. Thank you and we will follow with you. Parker Beasley MD
[2017-06-27 07:22] LABS: MEAN CELL VOLUME 103.4 fl (80.0-105.0); MEAN CORPUSCULAR HEMOGLOBIN 33.9 pg (25.0-35.0); MEAN CORPUSCULAR HGB CONC 32.8 g/dl (31.0-37.0); RBC 4.13 10^6/uL (3.5-6.1); RED CELL DISTRIBUTION WIDTH 14.9 % (11.5-14.5); WHITE BLOOD COUNT 17.4 10^3/ul (4.5-11.0)
[2017-06-27 07:58] LABS: ALT/SGPT 38 U/L (7-56); AST/SGOT 59 U/L (17-59); BLOOD UREA NITROGEN 53 mg/dL (7-21); CALCIUM 8.3 mg/dL (8.4-10.5); GFR AFRICAN-AMERICAN > 60; GFR NON-AFRICAN AMERICAN 53
[2017-06-27] MEDS: Insulin Reg-LOW-Coverage SC SCH ×4 (08:42→21:36)
--- NOTE | 2017-06-27 09:13 | PN ---
ADDENDUM DATE: 06/26/2017 The patient is getting Lasix, got four doses, giving aspirin, maintain SBP above 120, maintain a blood glucose 140 to 180. rapid movements. Neurology actually signed off the case. We will continue present treatment. Gastrointestinal and deep vein thrombosis prophylaxis. Orchid Superintendent is on the case. Area Director Of Home Health Sales is on the case for shortness of breath. We will continue dementia medication. Blood pressure medicine and diabetes medication. The patient is getting ceftriaxone antibiotics for sinusitis and has lisinopril. We will follow up. January Estevez MD MTDD
[2017-06-27] MEDS: Divalproex 250 mg DR (BID formulation) PO SCH ×3 (10:50→17:56)
[2017-06-27] MEDS: cefTRIAXone 1 gm 1 GM/100 ML BAG IVPB SCH (10:53)
[2017-06-27] MEDS: Albuterol-Ipratrop 3 mg / 0.5 (3 ml) UD IH PRN ×2 (11:03→22:01)
[2017-06-27] MEDS: Sodium Chloride 0.9% 1,000 ML IV SCH (12:37)
--- NOTE | 2017-06-27 13:34 | PN ---
DATE: 06/27/2017 LOCATION: The patient in room 376, bed 1. REASON FOR CONSULTATION AND FOLLOWUP: Hypertension, shortness of breath. SUBJECTIVE: The patient is lying comfortably in the bed without any chest pain; shortness of breath, palpitation. OBJECTIVE: VITAL SIGNS: On examination, blood pressure 138/78, respirations 18, pulse 76, temperature 99.6. HEENT: Head is normocephalic. Eyes, pupils normal. Conjunctivae normal. Nose and throat normal. NECK: JVP low. Carotids equal. THORAX: AP diameter normal. LUNGS: Clear. ABDOMEN: Large ventral hernia. EXTREMITIES: No clubbing. No cyanosis. LABORATORY DATA: WBC 17.4, hemoglobin 14.0, hematocrit 42.7, platelet count 121. Sodium 143, potassium 4.2, BUN 53, creatinine 1.3, sugar 97, calcium 8.3. AST and ALT normal. Total protein and albumin normal. Yesterday, BUN was 52 and creatinine was 2.6, and today, BUN 53, creatinine 1.3. Echocardiogram done on 06/26/2017 showed normal LV size, mild concentric left ventricular hypertrophy, systolic function mildly impaired, with ejection fraction of 40% to 45%, [id number] aortic regurgitation, aortic sclerosis versus mild aortic stenosis, mitral regurgitation is trace, [id number] tricuspid regurgitation, RVSP 30 mmHg. MEDICATIONS: The patient is on carvedilol 3.125 b.i.d., aspirin 81 mg daily, Depakote DR 750 mg p.o. t.i.d., glipizide 2.5 mg daily, atorvastatin 80 mg p.o. daily, Plavix 75 daily, Rocephin 1 g IV daily. IV fluids, sodium chloride at 50 mL an hour has been started. Xanax 0.5 t.i.d., lisinopril 2.5 daily. As compared to yesterday, creatinine has improved. We will continue gentle hydration. DIAGNOSES: Altered mental status, The patient on one-to-one observation; left ventricular dysfunction suggestive of mild left ventricular systolic dysfunction, respiratory tract infection, chronic kidney disease, diabetes, hypertension, hyperlipidemia, large ventral hernia, urinary incontinence. ASSESSMENT AND PLAN: Although BNP elevated, but clinically the patient not in congestive heart failure. Actually, the patient on dehydration side, started gentle IV fluid therapy. We will repeat CBC, SMA-7, magnesium, phosphorus in the morning. Parker Mccall MD
--- NOTE | 2017-06-27 22:16 | CP.PCM.PN ---
Subjective - Date & Time of Evaluation Date of Evaluation: 06/27/17 Time of Evaluation: 21:10 - Subjective Subjective: Attending Provider: January Estevez Date: 06/27/17 21:37 Initialization Date: 06/27/17 21:37 Subjective - Date & Time of Evaluation Date of Evaluation: 06/27/17 Time of Evaluation: 21:10 - Subjective Subjective: Pt seen at the request of his RN for observation of audible rales and refusal of nebulizer treatment ordered for him. Pt was admitted for CHF ,was not given Lasix today. VS BP 117/73 HR 85 RR 20 O2 sat 96% on4L/min T 98.5 Accucheck 116 PMH: HTN,Dysphagia,DM type 2.Bipolar Disorder.Anxiety Objective - Vital Signs/Intake and Output Vital Signs (last 24 hours): Temp Pulse Resp BP Pulse Ox 80 18 150/79 98 06/27/17 16:51 06/27/17 16:51 06/27/17 16:51 06/27/17 16:51 - Medications Medications: Current Medications Atorvastatin Calcium (Lipitor) 20 mg PO DIN [facility] Clopidogrel Bisulfate (Plavix) 75 mg PO DAILY [facility] Losartan Potassium (Cozaar) 50 mg PO DAILY [facility] Pantoprazole Sodium (Protonix Ec Tab) 40 mg PO 0600 [facility] - Constitutional Appears: Non-toxic, Chronically Ill - Head Exam Head Exam: ATRAUMATIC, NORMAL INSPECTION, NORMOCEPHALIC - Eye Exam Eye Exam: Normal appearance - ENT Exam ENT Exam: Mucous Membranes Moist - Neck Exam Neck Exam: Normal Inspection - Respiratory Exam Respiratory Exam: Rales (noted in both lower lung rodriguez,). absent: Accessory Muscle Use, Respiratory Distress - Cardiovascular Exam Cardiovascular Exam: REGULAR RHYTHM - GI/Abdominal Exam GI & Abdominal Exam: Soft, Hernia (abdominal hernia noted) - Extremities Exam Extremities Exam: Normal Inspection - Neurological Exam Neurological Exam: Alert, Awake (agitated at times) - Psychiatric Exam Psychiatric exam: Agitated - Skin Skin Exam: Dry, Normal Color, Warm Assessment and Plan - Assessment and Plan (Free Text) Assessment: CHF Plan: Ekg done stat ,shows NSR,poor progression of the R wave in the V leads. Pt encouraged to take nebulizer Rx ordered for him. Lasix 20 mg iv ordered stat. IV Fluids held. Cardiac enzymes now,then in am BNP now Objective - Vital Signs/Intake and Output Vital Signs (last 24 hours): Temp Pulse Resp BP Pulse Ox 98.1 F 83 20 109/21 L 97 06/27/17 18:55 06/27/17 18:00 06/27/17 18:00 06/27/17 18:00 06/27/17 18:00 Intake and Output: 06/27/17 06/28/17 18:59 06:59 Intake Total 1200 Output Total 650 Balance 550 - Medications Medications: Current Medications Acetaminophen (Tylenol 325mg Tab) 650 mg PO Q4H PRN PRN Reason: Temperature Last Admin: 06/27/17 17:55 Dose: 650 mg Albuterol/Ipratropium (Duoneb 3 Mg/0.5 Mg (3 Ml) Ud) 3 ml IH [id number] [facility] Last Admin: 06/27/17 19:49 Dose: Not Given Albuterol/Ipratropium (Duoneb 3 Mg/0.5 Mg (3 Ml) Ud) 3 ml IH Q2H PRN PRN Reason: Shortness of Breath Last Admin: 06/27/17 22:01 Dose: 3 ml Alprazolam (Xanax) 0.5 mg PO TID [facility] PRN Reason: Protocol Stop: 07/02/17 10:01 Last Admin: 06/27/17 17:56 Dose: 0.5 mg Aspirin (Aspirin Chewable) 81 mg PO DAILY [facility] Last Admin: 06/27/17 10:50 Dose: 81 mg Atorvastatin Calcium (Lipitor) 80 mg PO 1800 [facility] Last Admin: 06/27/17 17:55 Dose: 80 mg Carvedilol (Coreg) 3.125 mg PO BID [facility] Last Admin: 06/27/17 17:57 Dose: 3.125 mg Clopidogrel Bisulfate (Plavix) 75 mg PO DAILY [facility] Last Admin: 06/27/17 10:50 Dose: 75 mg Divalproex Sodium (Depakote Dr (*Bid*)) 750 mg PO TID [facility] Last Admin: 06/27/17 17:56 Dose: 750 mg Donepezil HCl (Aricept) 10 mg PO HS [facility] Last Admin: 06/27/17 21:35 Dose: Not Given Glipizide (Glucotrol) 2.5 mg PO ACB [facility] Last Admin: 06/27/17 08:48 Dose: 2.5 mg Ceftriaxone Sodium (Rocephin 1 Gram Ivpb) 1 gm in 100 mls @ 100 mls/hr IVPB DAILY [facility] PRN Reason: Protocol Stop: 07/03/17 10:01 Last Admin: 06/27/17 10:53 Dose: 100 mls/hr Sodium Chloride (Sodium Chloride 0.9%) 1,000 mls @ 50 mls/hr IV .Q20H [facility] Stop: 06/27/17 23:59 Last Admin: 06/27/17 12:37 Dose: 50 mls/hr Insulin Human Regular (Humulin R Low) 0 units SC ACHS [facility] PRN Reason: Protocol Last Admin: 06/27/17 21:36 Dose: Not Given Lisinopril (Zestril) 2.5 mg PO DAILY [facility] Last Admin: 06/25/17 09:40 Dose: 2.5 mg - Labs Labs: 06/27/17 06:30 06/27/17 06:30 PT 12.4 SECONDS (9.4-12.5) 06/24/17 19:55 INR 1.09 (0.93-1.08) H 06/24/17 19:55 APTT 30.4 Seconds (25.1-36.5) 06/24/17 19:55
--- NOTE | 2017-06-27 22:56 | CP.PCM.PN ---
<Dejah Sr - Last Filed: 06/27/17 22:52> Subjective - Date & Time of Evaluation Date of Evaluation: 06/27/17 Time of Evaluation: 18:30 - Subjective Subjective: 81 yr male resident from [facility] w/ history of schizophrenia, HTN, bioplar disorder, anterior abdominal wall hernia, & DM II. Admitted for weakness, near syncope, & SOB. Pt has a thick accent and his baseline is confused. He is wheezing and has notable SOB but continues to refuse his nebulizer treatments. Objective - Vital Signs/Intake and Output Vital Signs (last 24 hours): Temp Pulse Resp BP Pulse Ox 98.1 F 83 20 117/73 97 06/27/17 18:55 06/27/17 18:00 06/27/17 18:00 06/27/17 21:55 06/27/17 18:00 Intake and Output: 06/27/17 06/28/17 18:59 06:59 Intake Total 1200 Output Total 650 Balance 550 - Medications Medications: Current Medications Acetaminophen (Tylenol 325mg Tab) 650 mg PO Q4H PRN PRN Reason: Temperature Last Admin: 06/27/17 17:55 Dose: 650 mg Albuterol/Ipratropium (Duoneb 3 Mg/0.5 Mg (3 Ml) Ud) 3 ml IH [id number] [facility] Last Admin: 06/27/17 19:49 Dose: Not Given Albuterol/Ipratropium (Duoneb 3 Mg/0.5 Mg (3 Ml) Ud) 3 ml IH Q2H PRN PRN Reason: Shortness of Breath Last Admin: 06/27/17 22:01 Dose: 3 ml Alprazolam (Xanax) 0.5 mg PO TID [facility] PRN Reason: Protocol Stop: 07/02/17 10:01 Last Admin: 06/27/17 17:56 Dose: 0.5 mg Aspirin (Aspirin Chewable) 81 mg PO DAILY [facility] Last Admin: 06/27/17 10:50 Dose: 81 mg Atorvastatin Calcium (Lipitor) 80 mg PO 1800 [facility] Last Admin: 06/27/17 17:55 Dose: 80 mg Carvedilol (Coreg) 3.125 mg PO BID [facility] Last Admin: 06/27/17 17:57 Dose: 3.125 mg Clopidogrel Bisulfate (Plavix) 75 mg PO DAILY [facility] Last Admin: 06/27/17 10:50 Dose: 75 mg Divalproex Sodium (Depakote Dr (*Bid*)) 750 mg PO TID [facility] Last Admin: 06/27/17 17:56 Dose: 750 mg Donepezil HCl (Aricept) 10 mg PO HS [facility] Last Admin: 06/27/17 21:35 Dose: Not Given Glipizide (Glucotrol) 2.5 mg PO ACB [facility] Last Admin: 06/27/17 08:48 Dose: 2.5 mg Ceftriaxone Sodium (Rocephin 1 Gram Ivpb) 1 gm in 100 mls @ 100 mls/hr IVPB DAILY [facility] PRN Reason: Protocol Stop: 07/03/17 10:01 Last Admin: 06/27/17 10:53 Dose: 100 mls/hr Sodium Chloride (Sodium Chloride 0.9%) 1,000 mls @ 50 mls/hr IV .Q20H [facility] Stop: 06/27/17 23:59 Last Admin: 06/27/17 12:37 Dose: 50 mls/hr Insulin Human Regular (Humulin R Low) 0 units SC ACHS [facility] PRN Reason: Protocol Last Admin: 06/27/17 21:36 Dose: Not Given Lisinopril (Zestril) 2.5 mg PO DAILY [facility] Last Admin: 06/25/17 09:40 Dose: 2.5 mg - Labs Labs: 06/27/17 06:30 06/27/17 06:30 PT 12.4 SECONDS (9.4-12.5) 06/24/17 19:55 INR 1.09 (0.93-1.08) H 06/24/17 19:55 APTT 30.4 Seconds (25.1-36.5) 06/24/17 19:55 - Constitutional Appears: Chronically Ill - Head Exam Head Exam: ATRAUMATIC, NORMAL INSPECTION, NORMOCEPHALIC - Eye Exam Eye Exam: EOMI, Normal appearance, PERRL - ENT Exam ENT Exam: Mucous Membranes Dry - Neck Exam Neck Exam: Full ROM, Normal Inspection. absent: Lymphadenopathy - Respiratory Exam Respiratory Exam: Rhonchi, Wheezes - Cardiovascular Exam Cardiovascular Exam: REGULAR RHYTHM, +S1, +S2. absent: Murmur - GI/Abdominal Exam Additional comments: BULGING ANTERIOR HERNIA. NON TENDER - Exam Additional comments: clear yellow urine in willson catheter - Extremities Exam Extremities Exam: Normal Inspection - Back Exam Back Exam: NORMAL INSPECTION - Neurological Exam Neurological Exam: Alert, Awake - Psychiatric Exam Psychiatric exam: Flat Affect - Skin Skin Exam: Dry, Intact, Normal Color, Warm Assessment and Plan (1) Sinusitis Status: Acute (2) Dehydration Status: Acute (3) Neutrophilia Status: Acute (4) Hypocalcemia Status: Acute (5) Abnormal LFTs Status: Acute (6) HTN (hypertension) Status: Acute (7) Dementia Status: Acute (8) Bipolar disorder Status: Acute (9) CHF (congestive heart failure) Status: Acute (10) Near syncope Status: Acute (11) Agitated Status: Acute (12) Encephalopathy Status: Acute - Assessment and Plan (Free Text) Plan: Labs ordered. IV rocephin. 1:1 observation. Pt onboard. GI/VTE prophlyaxis Consults: Neurologist - Dr. Brian - enchephalopathy Supervisor Photostat - Dr. Beasley - may have bronchitis [employer] President - Dr. Mccall - BNP elevated s/t dehydration Reviewed: CXR = WNL US RLE = WNL CT head = atrophy, chronic small vessel ischemia disease, encephalomalcia in R cerebellum. mild mucosal thickening of the ethmoid/frontal sinuses. ECHO = EF 40-45%, systolic function milding impaired ECG = ABNORMAL, NSR, low voltage QRS, inferior infarct, anteroseptal infarct ECG = normal drowsy EEG <January Estevez - Last Filed: 06/27/17 23:50> Objective - Vital Signs/Intake and Output Vital Signs (last 24 hours): Temp Pulse Resp BP Pulse Ox 98.1 F 83 20 117/73 97 06/27/17 18:55 06/27/17 18:00 06/27/17 18:00 06/27/17 21:55 06/27/17 18:00 Intake and Output: 06/27/17 06/28/17 18:59 06:59 Intake Total 1200 Output Total 650 Balance 550 - Medications Medications: Current Medications Acetaminophen (Tylenol 325mg Tab) 650 mg PO Q4H PRN PRN Reason: Temperature Last Admin: 06/27/17 17:55 Dose: 650 mg Albuterol/Ipratropium (Duoneb 3 Mg/0.5 Mg (3 Ml) Ud) 3 ml IH [id number] [facility] Last Admin: 06/27/17 19:49 Dose: Not Given Albuterol/Ipratropium (Duoneb 3 Mg/0.5 Mg (3 Ml) Ud) 3 ml IH Q2H PRN PRN Reason: Shortness of Breath Last Admin: 06/27/17 22:01 Dose: 3 ml Alprazolam (Xanax) 0.5 mg PO TID [facility] PRN Reason: Protocol Stop: 07/02/17 10:01 Last Admin: 06/27/17 17:56 Dose: 0.5 mg Aspirin (Aspirin Chewable) 81 mg PO DAILY [facility] Last Admin: 06/27/17 10:50 Dose: 81 mg Atorvastatin Calcium (Lipitor) 80 mg PO 1800 [facility] Last Admin: 06/27/17 17:55 Dose: 80 mg Carvedilol (Coreg) 3.125 mg PO BID [facility] Last Admin: 06/27/17 17:57 Dose: 3.125 mg Clopidogrel Bisulfate (Plavix) 75 mg PO DAILY [facility] Last Admin: 06/27/17 10:50 Dose: 75 mg Divalproex Sodium (Depakote Dr (*Bid*)) 750 mg PO TID [facility] Last Admin: 06/27/17 17:56 Dose: 750 mg Donepezil HCl (Aricept) 10 mg PO HS [facility] Last Admin: 06/27/17 21:35 Dose: Not Given Glipizide (Glucotrol) 2.5 mg PO ACB [facility] Last Admin: 06/27/17 08:48 Dose: 2.5 mg Ceftriaxone Sodium (Rocephin 1 Gram Ivpb) 1 gm in 100 mls @ 100 mls/hr IVPB DAILY [facility] PRN Reason: Protocol Stop: 07/03/17 10:01 Last Admin: 06/27/17 10:53 Dose: 100 mls/hr Sodium Chloride (Sodium Chloride 0.9%) 1,000 mls @ 50 mls/hr IV .Q20H [facility] Stop: 06/27/17 23:59 Last Admin: 06/27/17 12:37 Dose: 50 mls/hr Insulin Human Regular (Humulin R Low) 0 units SC ACHS [facility] PRN Reason: Protocol Last Admin: 06/27/17 21:36 Dose: Not Given Lisinopril (Zestril) 2.5 mg PO DAILY [facility] Last Admin: 06/25/17 09:40 Dose: 2.5 mg - Labs Labs: 06/27/17 06:30 06/27/17 06:30 PT 12.4 SECONDS (9.4-12.5) 06/24/17 19:55 INR 1.09 (0.93-1.08) H 06/24/17 19:55 APTT 30.4 Seconds (25.1-36.5) 06/24/17 19:55 Assessment and Plan - Assessment and Plan (Free Text) Plan: 81 yr male resident from [facility] w/ history of schizophrenia, HTN, bioplar disorder, anterior abdominal wall hernia, & DM II. Admitted for weakness, near syncope, & SOB. Pt has a thick accent and his baseline is confused. He is wheezing and has notable SOB but continues to refuse his nebulizer treatments. . no change of status , chart . labs and meds noted , will f/u neuro , and cardio is on the case , will f/u
[2017-06-27 23:21] LABS: TROPONIN I 0.03 ng/mL
[2017-06-28] MEDS: Albuterol-Ipratrop 3 mg / 0.5 (3 ml) UD IH SCH ×5 (01:13→20:51)
[2017-06-28 07:23] LABS: BASO # 0.03 K/mm3 (0.0-2.0); BASO % 0.2 % (0.0-3.0); EOS # 0.5 (0.0-0.7); EOS % 4.2 % (1.5-5.0); GRAN # 7.02 (1.4-6.5); GRAN % 54.5 % (50.0-68.0); HEMOGLOBIN 13.9 g/dL (14.0-18.0); LYMPH # 3.2 (1.2-3.4); LYMPH % 24.6 % (22.0-35.0); MEAN CELL VOLUME 104.7 fl (80.0-105.0); MEAN CORPUSCULAR HEMOGLOBIN 34.2 pg (25.0-35.0); MEAN CORPUSCULAR HGB CONC 32.6 g/dl (31.0-37.0); MEAN PLATELET VOLUME 11.7 fl (7.0-11.0); MONO # 2.1 (0.1-0.6); MONO % 16.5 % (1.0-6.0); RBC 4.07 10^6/uL (3.5-6.1); RED CELL DISTRIBUTION WIDTH 14.4 % (11.5-14.5); WHITE BLOOD COUNT 12.9 10^3/ul (4.5-11.0)
[2017-06-28 07:40] LABS: TROPONIN I 0.03 ng/mL
[2017-06-28 08:02] LABS: BLOOD UREA NITROGEN 38 mg/dL (7-21); GFR AFRICAN-AMERICAN > 60; GFR NON-AFRICAN AMERICAN > 60; MAGNESIUM 2.2 mg/dL (1.7-2.2)
--- NOTE | 2017-06-28 08:14 | PN ---
DATE: 06/27/2017 PULMONARY PROGRESS NOTE REFERRING PHYSICIAN: Dr. Estevez. SUBJECTIVE: He is lying in the bed, head at 45 degree, under one-to-one supervision, night was unremarkable, on and off mild cough. No vomiting. No hematuria. No diarrhea. No leg pain or leg swelling. PHYSICAL EXAMINATION: GENERAL: In no acute distress. VITAL SIGNS: Temperature is 99, heart rate is 84, respiratory rate is 20, blood pressure 92/56, pulse ox is 92% on nasal cannula. HEENT: Moist mucous membrane. Crowded airway. Mallampati score is IV. NECK: Supple. No JVD. LUNGS: Has a fair airflow with scattered rhonchi. HEART: S1, S2. ABDOMEN: Soft, nontender. No organomegaly. EXTREMITIES: No edema. NEUROLOGIC: Sleepy, arousable. Follows simple commands. MEDICATIONS: He is on Aricept 10 mg at bedtime, aspirin 81 mg daily, Coreg 3.125 mg twice a day, divalproex 750 mg three times a day, DuoNeb q. 6 hours, Glucotrol 2.5 mg a.c.b., insulin coverage, Lipitor 80 mg daily, Plavix 75 mg daily, Rocephin 1 g daily, IV fluid normal saline 50 mL per hour, Tylenol p.r.n., Xanax 0.5 mg three times a day, Zestril 2.5 mg daily. LABORATORY DATA: Shows hemoglobin 14.0, hematocrit 42.7, WBC 17,000, platelet is 121. Sodium 142, potassium 4.2, chloride 105, bicarbonate 31, BUN , creatinine 1.3, glucose 103, calcium is 8.3, AST 59, ALT 38, alk phos is 36, albumin is 3.0. IMPRESSION AND PLAN: Cardiomyopathy with decreased left ventricular function, coronary artery disease, hypertension, diabetes, bipolar disorder/schizophrenia. Pulmonary point of view, doing okay. Keep head at 45 degrees, sleep apnea precaution, avoid sedation, gastric prophylaxis, physical therapy, out of bed to chair. Thank you and we will follow with you. Parker Beasley MD [facility] # [phone]
--- NOTE | 2017-06-28 10:06 | CARD ---
APPROVED REPORT EKG Measurement Heart [id number] <Conclusion> Normal sinus rhythm Septal infarct, age undetermined Abnormal ECG
[2017-06-28] MEDS: Divalproex 250 mg DR (BID formulation) PO SCH ×3 (10:49→18:19)
[2017-06-28] MEDS: Insulin Reg-LOW-Coverage SC SCH ×4 (10:51→22:15)
--- NOTE | 2017-06-28 12:26 | RAD ---
HISTORY: Wheezing. COMPARISON: 06/24/1979 15 FINDINGS: LUNGS: Consolidative change, volume loss primarily affecting the left upper lobe. This represents a new finding compared to the prior study. PLEURA: No significant pleural effusion identified, no pneumothorax apparent. CARDIOVASCULAR: No radiographic findings to suggest acute or significant cardiovascular disease. OSSEOUS STRUCTURES: No significant abnormalities. VISUALIZED UPPER ABDOMEN: Normal. OTHER FINDINGS: None. IMPRESSION: Atelectasis/ collapse left upper lobe. Volume loss of uncertain etiology.
[2017-06-28 13:58] LABS: ARTERIAL BLOOD GAS HCO3 32.4 mmol/L (21-28); ARTERIAL BLOOD GAS HEMOGLOBIN 14.9 g/dL (11.7-17.4); ARTERIAL BLOOD GAS O2 CAPACITY 20.6 mL/dl (16-24); ARTERIAL BLOOD GAS O2 CONTENT 20.5 ML/dl (15-23); ARTERIAL BLOOD GAS O2 SAT 99.4 % (95-98); ARTERIAL BLOOD GAS TCO2 34.9 mmol.L (22-28)
[2017-06-28 14:00] LABS: ARTERIAL BLOOD GAS PCO2 83 mm/Hg (35-45)
[2017-06-28 14:27] LABS: BASO # 0.04 K/mm3 (0.0-2.0); BASO % 0.3 % (0.0-3.0); EOS # 0.4 (0.0-0.7); EOS % 3.5 % (1.5-5.0); GRAN # 6.08 (1.4-6.5); GRAN % 50.1 % (50.0-68.0); HEMOGLOBIN 15.6 g/dL (14.0-18.0); LYMPH # 3.1 (1.2-3.4); LYMPH % 25.4 % (22.0-35.0); MEAN CELL VOLUME 105.4 fl (80.0-105.0); MEAN CORPUSCULAR HEMOGLOBIN 34.8 pg (25.0-35.0); MEAN CORPUSCULAR HGB CONC 33.1 g/dl (31.0-37.0); MEAN PLATELET VOLUME 11.6 fl (7.0-11.0); MONO # 2.5 (0.1-0.6); MONO % 20.7 % (1.0-6.0); PLATELET COUNT 145 10^3/uL (120.0-450.0); RBC 4.48 10^6/uL (3.5-6.1); RED CELL DISTRIBUTION WIDTH 14.1 % (11.5-14.5); WHITE BLOOD COUNT 12.1 10^3/ul (4.5-11.0)
--- NOTE | 2017-06-28 14:28 | CP.PCM.PN ---
<Solitario Connell - Last Filed: 06/28/17 16:54> Subjective - Date & Time of Evaluation Date of Evaluation: 06/28/17 Time of Evaluation: 13:39 - Subjective Subjective: Rapid response note Rapid response called to room 376-1 at 1:38PM. [employer] responded immediately. [employer] called for shortness of breath with desaturation of SaO2 in the 60's. Patient is a 81yo male with history of CHF (LVEF of 40-45%), ventral wall hernia, schizophrenia, bipolar disorder, hypertension, DM that was admitted for shortness of breath, generalized weakness and near syncope. Vitals were reviewed and patient was immediately placed on nonrebreather. A STAT CXR, EKG, CBC, CMP, BNP, Troponin and ABG were ordered. Labs/imaging/Reports from this admission were reviewed and patient was given a total of 60mg of IV lasix. ABG was reviewed which was notable for respiratory acidosis. Patient was placed on BiPAP 16/8 at a rate of 24 with Fio2 100%. Patient improved to SaO2 in the 90's and was subsequently more awake and alert. PMD notified. Physical Exam: Head: Atraumatic, normocephalic Heart: S1, S2, no murmurs/rubs/gallops Pulm: Bilateral diffuse rales with scattered wheezing GI: large ventral wall hernia, no apparent tenderness to palpation Extremities: no clubbing, cyanosis or edema Neuro: awake, alert, moving all extremities spontaneously Assessment/plan: 81yo male with history of CHF, ventral wall hernia, schizophrenia/bipolar disorder, hypertension, DM with shortness of breath likely secondary to decompensated congestive heart failure -HOB > 45' -Patient placed on nonrebreather and O2 sat was in the 90's, stat ABG ordered -ABG reviewed; pH 7.20, CO2 83, Po2 123 on Fio2 100% -Patient placed on BiPAP 16/8 at a rate of 24 with Fio2 100% -Repeat ABG ordered in 1 hour -STAT CBC/CMP/BNP/Troponin -STAT Duoneb treatment -Patient given a total of 60mg of IV lasix -STAT CXR which was reviewed -EKG reviewed -Blood sugar noted to be 100 -Strict I's and O's -Daily weight -PMD and pulmonary notified Patient seen and case discussed/reviewed with attending, Dr. Garcia Objective - Vital Signs/Intake and Output Vital Signs (last 24 hours): Temp Pulse Resp BP Pulse Ox 99.3 F 91 H 20 118/76 99 06/28/17 06:00 06/28/17 14:16 06/28/17 06:00 06/28/17 13:37 06/28/17 06:00 Intake and Output: 06/28/17 06/28/17 06:59 18:59 Intake Total 580 Output Total 2100 Balance -1520 - Medications Medications: Current Medications Acetaminophen (Tylenol 325mg Tab) 650 mg PO Q4H PRN PRN Reason: Temperature Last Admin: 06/27/17 17:55 Dose: 650 mg Albuterol/Ipratropium (Duoneb 3 Mg/0.5 Mg (3 Ml) Ud) 3 ml IH [id number] [facility] Last Admin: 06/28/17 14:20 Dose: 3 ml Albuterol/Ipratropium (Duoneb 3 Mg/0.5 Mg (3 Ml) Ud) 3 ml IH Q2H PRN PRN Reason: Shortness of Breath Last Admin: 06/27/17 22:01 Dose: 3 ml Alprazolam (Xanax) 0.5 mg PO TID [facility] PRN Reason: Protocol Stop: 07/02/17 10:01 Last Admin: 06/28/17 10:49 Dose: 0.5 mg Aspirin (Aspirin Chewable) 81 mg PO DAILY [facility] Last Admin: 06/28/17 10:49 Dose: 81 mg Atorvastatin Calcium (Lipitor) 80 mg PO 1800 [facility] Last Admin: 06/27/17 17:55 Dose: 80 mg Carvedilol (Coreg) 3.125 mg PO BID [facility] Last Admin: 06/28/17 10:50 Dose: 3.125 mg Cefpodoxime Proxetil (Vantin) 200 mg PO Q12 [facility] Clopidogrel Bisulfate (Plavix) 75 mg PO DAILY [facility] Last Admin: 06/28/17 10:50 Dose: 75 mg Divalproex Sodium (Depakote Dr (*Bid*)) 750 mg PO TID [facility] Last Admin: 06/28/17 10:49 Dose: 750 mg Donepezil HCl (Aricept) 10 mg PO HS [facility] Last Admin: 06/27/17 21:35 Dose: Not Given Furosemide (Lasix) 20 mg IVP DAILY [facility] Last Admin: 06/28/17 13:37 Dose: 20 mg Glipizide (Glucotrol) 2.5 mg PO ACB [facility] Last Admin: 06/28/17 10:50 Dose: 2.5 mg Insulin Human Regular (Humulin R Low) 0 units SC ACHS [facility] PRN Reason: Protocol Last Admin: 06/28/17 12:41 Dose: Not Given Lisinopril (Zestril) 2.5 mg PO DAILY [facility] Last Admin: 06/25/17 09:40 Dose: 2.5 mg - Labs Labs: 06/28/17 06:30 06/28/17 06:30 PT 12.4 SECONDS (9.4-12.5) 06/24/17 19:55 INR 1.09 (0.93-1.08) H 06/24/17 19:55 APTT 30.4 Seconds (25.1-36.5) 06/24/17 19:55 <Renea Garcia - Last Filed: 06/28/17 17:01> Objective - Vital Signs/Intake and Output Vital Signs (last 24 hours): Temp Pulse Resp BP Pulse Ox 99.3 F 91 H 20 172/93 H 99 06/28/17 06:00 06/28/17 14:16 06/28/17 06:00 06/28/17 14:33 06/28/17 06:00 Intake and Output: 06/28/17 06/28/17 06:59 18:59 Intake Total 580 Output Total 2100 Balance -1520 - Medications Medications: Current Medications Acetaminophen (Tylenol 325mg Tab) 650 mg PO Q4H PRN PRN Reason: Temperature Last Admin: 06/27/17 17:55 Dose: 650 mg Albuterol/Ipratropium (Duoneb 3 Mg/0.5 Mg (3 Ml) Ud) 3 ml IH [id number] [facility] Last Admin: 06/28/17 14:20 Dose: 3 ml Albuterol/Ipratropium (Duoneb 3 Mg/0.5 Mg (3 Ml) Ud) 3 ml IH Q2H PRN PRN Reason: Shortness of Breath Last Admin: 06/27/17 22:01 Dose: 3 ml Alprazolam (Xanax) 0.5 mg PO TID [facility] PRN Reason: Protocol Stop: 07/02/17 10:01 Last Admin: 06/28/17 15:43 Dose: Not Given Aspirin (Aspirin Chewable) 81 mg PO DAILY [facility] Last Admin: 06/28/17 10:49 Dose: 81 mg Atorvastatin Calcium (Lipitor) 80 mg PO 1800 [facility] Last Admin: 06/27/17 17:55 Dose: 80 mg Carvedilol (Coreg) 3.125 mg PO BID [facility] Last Admin: 06/28/17 10:50 Dose: 3.125 mg Cefpodoxime Proxetil (Vantin) 200 mg PO Q12 [facility] Clopidogrel Bisulfate (Plavix) 75 mg PO DAILY [facility] Last Admin: 06/28/17 10:50 Dose: 75 mg Divalproex Sodium (Depakote Dr (*Bid*)) 750 mg PO TID [facility] Last Admin: 06/28/17 15:42 Dose: Not Given Donepezil HCl (Aricept) 10 mg PO HS [facility] Last Admin: 06/27/17 21:35 Dose: Not Given Furosemide (Lasix) 20 mg IVP DAILY [facility] Last Admin: 06/28/17 13:37 Dose: 20 mg Glipizide (Glucotrol) 2.5 mg PO ACB [facility] Last Admin: 06/28/17 10:50 Dose: 2.5 mg Insulin Human Regular (Humulin R Low) 0 units SC ACHS [facility] PRN Reason: Protocol Last Admin: 06/28/17 16:54 Dose: Not Given Lisinopril (Zestril) 2.5 mg PO DAILY [facility] Last Admin: 06/25/17 09:40 Dose: 2.5 mg - Labs Labs: 06/28/17 14:21 06/28/17 14:21 PT 12.4 SECONDS (9.4-12.5) 06/24/17 19:55 INR 1.09 (0.93-1.08) H 06/24/17 19:55 APTT 30.4 Seconds (25.1-36.5) 06/24/17 19:55 Attending/Attestation - Attestation I have personally seen and examined this patient.: Yes I have fully participated in the care of the patient.: Yes I have reviewed all pertinent clinical information, including history, physical exam and plan: Yes
--- NOTE | 2017-06-28 14:31 | RAD ---
HISTORY: Desaturation. Portable study 13:50 COMPARISON: 06/28/2016 at 11:36 FINDINGS: LUNGS: Improved aeration of the previously partially collapsed left upper lobe. PLEURA: No significant pleural effusion identified, no pneumothorax apparent. CARDIOVASCULAR: Normal. OSSEOUS STRUCTURES: No significant abnormalities. VISUALIZED UPPER ABDOMEN: Normal. OTHER FINDINGS: None. IMPRESSION: Improved aeration left upper lobe. No new/ discrete infiltrates identified.
[2017-06-28 14:49] LABS: B-TYPE NATRIURETIC PEPTIDE 684 pg/mL (0-450); TROPONIN I 0.03 ng/mL
[2017-06-28 14:52] LABS: ALBUMIN 3.8 g/dL (3.0-4.8); ALT/SGPT 42 U/L (7-56); AST/SGOT 60 U/L (17-59); BLOOD UREA NITROGEN 38 mg/dL (7-21); CALCIUM 8.5 mg/dL (8.4-10.5); GFR AFRICAN-AMERICAN > 60; GFR NON-AFRICAN AMERICAN > 60
[2017-06-28 14:56] LABS: BAND 1 % (0-2); BASOPHIL 1 % (0.0-1.0); EOSINOPHIL 3 % (0.0-3.0); LYMPHOCYTE 23 % (22.0-35.0); MONOCYTE 15 % (1.0-6.0); NEUTROPHIL 57 % (50.0-70.0)
[2017-06-28 14:57] LABS: PLATELET ESTIMATE NORMAL (NORMAL)
[2017-06-28 16:36] LABS: ARTERIAL BLOOD GAS HCO3 30.6 mmol/L (21-28); ARTERIAL BLOOD GAS HEMOGLOBIN 12.7 g/dL (11.7-17.4); ARTERIAL BLOOD GAS O2 CAPACITY 18.2 mL/dl (16-24); ARTERIAL BLOOD GAS O2 CONTENT 18.2 ML/dl (15-23); ARTERIAL BLOOD GAS O2 SAT 100.1 % (95-98); ARTERIAL BLOOD GAS PCO2 42 mm/Hg (35-45); ARTERIAL BLOOD GAS PH 7.47 (7.35-7.45); ARTERIAL BLOOD GAS TCO2 31.9 mmol.L (22-28)
--- NOTE | 2017-06-28 18:30 | PN ---
DATE: 06/28/2017 REASON FOR CONSULTATION: Followup hypertension, shortness of breath. SUBJECTIVE: The patient lying comfortably in bed this morning while having a lot of cough. The patient denies any chest pain or palpitation. PHYSICAL EXAMINATION VITAL SIGNS: Blood pressure 115/75, respirations 20, pulse 80, temperature 99.3. HEENT: Head is normocephalic. Eyes: Pupils normal, conjunctivae normal, nose and throat normal. NECK: JVP low, carotids equal. Thorax: AP diameter normal. CARDIOVASCULAR: S1 and S2. LUNGS: No significant rales. ABDOMEN: Protuberant due to large ventral hernia. EXTREMITIES: No clubbing, no cyanosis. LABORATORY DATA: WBC 12.9, hemoglobin 13.9, hematocrit 42.6, platelet 155,000. Sodium 142, potassium 4.5, BUN 38, creatinine 0.9. Random sugar 102. Troponin negative. Echo was done on 06/26/2017; showed normal LV size, mild concentric left ventricular hypertrophy, systolic function mildly impaired with ejection fraction of 40% to 45%, [id number] aortic regurgitation, mild aortic sclerosis versus mild aortic stenosis, [id number] tricuspid regurgitation, RVSP 30 mmHg. DIAGNOSES: Altered mental status, respiratory tract infection, possible pneumonia, mild left ventricular systolic dysfunction, chronic kidney disease, diabetes, hypertension, hyperlipidemia, large ventral hernia, urinary incontinence. PLAN: The patient on carvedilol 3.125 b.i.d., Depakote DR 750 p.o. t.i.d., DuoNeb hand nebulizer therapy, glipizide 2.5 mg p.o. before meals daily, furosemide 20 mg IV daily, Lipitor 80 mg daily, Plavix 75 mg daily, cefpodoxime (Vantin) 200 mg p.o. q.12 hours, lisinopril 2.5 p.o. daily. We will discuss with Dr. Beasley. We will follow with you. Parker Mccall MD
--- NOTE | 2017-06-28 20:06 | PN ---
DATE: 06/28/2017 PULMONARY PROGRESS NOTE REFERRING PHYSICIAN: January Estevez MD SUBJECTIVE: He is lying in the bed, has hard time clearing pulmonary secretion status post lunch, will not let nebulizer mask placed on, has cough and unable to clear pulmonary secretion. No hemoptysis, no hematemesis, no hematuria, no diarrhea reported. OBJECTIVE: GENERAL: In no acute distress. VITAL SIGNS: Temperature is 99, heart rate is 91, respiratory rate is 20, blood pressure is 118/76, and pulse oximetry is 98% on nasal cannula. HEENT: Moist mucous membrane. Crowded airway. NECK: Supple. No JVD. LUNGS: Have a scattered rhonchi. HEART: S1 and S2. ABDOMEN: Soft, nontender. No organomegaly. EXTREMITIES: There is no edema. NEUROLOGIC: Awake, alert but confused. MEDICATIONS: He is on aspirin 81 mg daily, Coreg 3.125 mg twice a day, Depakote 750 mg three times a day, DuoNeb q. 6 hours, also on glipizide 2.5 mg a.c.b., insulin coverage, Lasix 20 mg one dose is given, Lipitor 80 mg daily, Plavix 75 mg daily, Tylenol p.r.n., Vantin 200 mg q. 12 hours, Xanax 0.5 mg three times a day, and Zestril is 2.5 mg daily. LABORATORY DATA: Shows hemoglobin 15.6, hematocrit 47.2, WBC 12,000, and platelet count is 145. Blood gas shows pH of 7.20, pCO2 is 83, O2 of 123, this is venous gases. Sodium 142, potassium 4.5, chloride 103, bicarbonate 30, BUN 38, creatinine 0.9, glucose 111, calcium is 8.0, phosphorus 2.6, and magnesium is 2.2. Troponin less than 0.03. ProBNP 598. Chest x-ray done this morning shows improved aeration of the left upper lobe. No new discrete infiltrate identified. No new infiltrate noted. IMPRESSION AND PLAN: Cardiomyopathy with decreased left ventricular function, coronary artery disease, hypertension, diabetes, bipolar disorder, noncompliant with medication and followup, pulmonary aspiration there, requesting nursing staff to do stat nebulizer treatment, keep n.p.o. for now, and swallow evaluation. We will start antibiotics, Lasix stat has been given, need close monitoring. Thank you and we will follow with you. Parker Beasley MD
[2017-06-28] MEDS: Cefpodoxime (Vantin) 200 mg Tab PO SCH (22:16)
--- NOTE | 2017-06-29 05:34 | PN ---
DATE: The patient is a 81-year-old male. SUBJECTIVE: Patient is seen and examined at the bedside, looking comfortable, still on one to one, congested, coughing, unable to clear pulmonary secretions. No hemoptysis. No hematuria. No hematochezia. No fever. No chills. No headache or dizziness. Patient is a poor historian. PHYSICAL EXAMINATION: VITAL SIGNS: Temperature 98, heart rate 90, respiratory rate 18, blood pressure 120/70, pulse oximetry is 98% on nasal cannula. HEENT: Head is normocephalic and atraumatic. Eyes, PERRLA. Extraocular muscles intact. Conjunctivae are clear. Nose is patent. Mucous membranes moist. NECK: Supple. No carotid bruits, JVD, or thyromegaly. CHEST: Bilaterally symmetrical. HEART: S1 and S2 positive. LUNGS: Clear to auscultation. ABDOMEN: Soft. Bowel sounds present. No organomegaly. EXTREMITIES: No edema. No cyanosis. NEUROLOGIC: Patient is awake and alert. Moving all four extremities. No focal deficits. MEDICATIONS: Aspirin, Coreg, Depakote, DuoNeb, glipizide, insulin, Lasix, Lipitor, Plavix, Vantin, Xanax, Zestril. LABORATORY DATA: Hemoglobin 15.6, hematocrit 47.2, white blood cell 12,000, platelets 145. Sodium 140, potassium 4.5, BUN 38, creatinine 0.9. Troponin 0.03. Chest x-ray done this morning shows improved aeration of the left upper lobe. No discrete infiltrates identified. No new infiltrates noted. ASSESSMENT AND PLAN: Mr. Steven Morris has cardiomyopathy, left ventricular decreased function, coronary artery disease, hypertension, diabetes mellitus, bipolar, noncompliant with medications, pulmonary aspiration, maybe dysphagia. Discussion done with Annita, nurse practitioner, stat nebulizer treatment provided. Steam Shovelman is on the case. We will have to keep the patient on aspiration precaution. Patient has schizophrenia, started antibiotics, needs close monitoring, seen by Dr. Renea Garcia, Hospitalist, for rapid response, for shortness of breath, and desaturation of SaO2 in the 60s, history of congestive heart failure, ventral abdominal wall hernia, schizophrenia, bipolar. I appreciate Dr. Meier's input. We will continue present treatment. Repeat labs. We will follow up. January Estevez MD [facility] # [id number] TRAVIS
[2017-06-29 07:29] LABS: BASO # 0.03 K/mm3 (0.0-2.0); BASO % 0.3 % (0.0-3.0); EOS # 0.3 (0.0-0.7); EOS % 2.3 % (1.5-5.0); GRAN # 5.49 (1.4-6.5); GRAN % 50.6 % (50.0-68.0); LYMPH # 3.1 (1.2-3.4); LYMPH % 28.7 % (22.0-35.0); MEAN CELL VOLUME 104.3 fl (80.0-105.0); MEAN CORPUSCULAR HGB CONC 32.6 g/dl (31.0-37.0); MEAN PLATELET VOLUME 11.7 fl (7.0-11.0); MONO % 18.1 % (1.0-6.0); RED CELL DISTRIBUTION WIDTH 13.9 % (11.5-14.5); WHITE BLOOD COUNT 10.9 10^3/ul (4.5-11.0)
[2017-06-29 07:33] LABS: HEMOGLOBIN 13.6 g/dL (14.0-18.0)
[2017-06-29] MEDS: Albuterol-Ipratrop 3 mg / 0.5 (3 ml) UD IH SCH ×4 (07:55→20:36)
[2017-06-29] MEDS: Insulin Reg-LOW-Coverage SC SCH ×4 (08:18→22:19)
[2017-06-29 08:42] LABS: ALBUMIN 3.2 g/dL (3.0-4.8); ALT/SGPT 35 U/L (7-56); AST/SGOT 44 U/L (17-59); BLOOD UREA NITROGEN 39 mg/dL (7-21); CALCIUM 8.3 mg/dL (8.4-10.5); GFR AFRICAN-AMERICAN > 60; GFR NON-AFRICAN AMERICAN > 60
--- NOTE | 2017-06-29 09:08 | RAD ---
HISTORY: infiltrate COMPARISON: 06/28/2017 FINDINGS: LUNGS: No active pulmonary disease. PLEURA: No significant pleural effusion identified, no pneumothorax apparent. CARDIOVASCULAR: Mild vascular congestion OSSEOUS STRUCTURES: No significant abnormalities. VISUALIZED UPPER ABDOMEN: Normal. OTHER FINDINGS: None. IMPRESSION: Mild vascular congestion
[2017-06-29] MEDS: Divalproex 250 mg DR (BID formulation) PO SCH ×3 (10:14→17:43)
[2017-06-29] MEDS: Cefpodoxime (Vantin) 200 mg Tab PO SCH ×2 (10:15→22:28)
--- NOTE | 2017-06-29 11:21 | CARD ---
APPROVED REPORT EKG Measurement Heart [id number] VA [id number] <Conclusion> Normal sinus rhythm Low voltage QRS Septal infarct, age undetermined STTW changes No change
--- NOTE | 2017-06-29 18:17 | PN ---
DATE: 06/29/2017 REASON FOR CONSULTATION: Followup hypertension, shortness of breath, altered mental status, confused, 2-point [place] restraint and one-to-one. SUBJECTIVE: The patient is lying comfortable, but denies any chest pain, shortness of breath, or any palpitation, but having one-to-one. OBJECTIVE: GENERAL: Lying flat in bed, not in distress, but having 2-point [place] restraint, is confused and one-to-one, under observation. VITAL SIGNS: As follows: Temperature afebrile, heart rate 84, and blood pressure 110/70. HEENT: PERRLA. Extraocular muscles intact. NECK: Supple. No carotid bruits or thyromegaly. CHEST: Clear to auscultation. HEART: S1 and S2 regular. ABDOMEN: Soft. EXTREMITIES: Clubbing and cyanosis negative. LABORATORY DATA: Blood workup as follows. WBC 10.9, hemoglobin 13.6, hematocrit 41.7, platelet count 164. Chemistry shows sodium 141, potassium 4.1, chloride 100, carbon dioxide 31, anion gap of 12, BUN 39, and creatinine 0.9. Total protein 6.3, albumin 3.2, albumin-globulin ratio 1. IMPRESSION: Altered mental status, confused, one-to-one observation, respiratory tract infection, possible pneumonia, chronic kidney disease, diabetes, hypertension, hyperlipidemia, left ventral hernia, urinary incontinence. The patient's last echocardiography done on 06/26/2017 the day before yesterday that shows a normal left ventricular size, mild concentric left ventricular hypertrophy, mildly impaired left ventricular function, ejection fraction of 40% to 45%, [id number] aortic regurgitation, mild aortic stenosis versus aortic sclerosis, trace mild tricuspid regurgitation, right ventricular systolic pressure 30. RECOMMENDATIONS: Continue gentle hydration. The patient came with normal kidney function, went up to 2.6, probably his acute kidney injury secondary to diuretic. Now the renal function improved back to baseline normal. Recommended avoid nephrotoxic medication. Continue Coreg. Continue DuoNeb nebulizer treatment. Continue Lipitor. The patient is on Plavix, reason unknown. We will follow with you. The patient has a trace mitral regurgitation. Telemetry shows normal sinus low voltage. No arrhythmia noted. Consider discontinue telemetry. Aggressive medical treatment because of overall mental status. No further cardiac workup is planned. Thank you Dr. Estevez for providing us the opportunity in taking care of the patient, Steven Morris. We will discontinue telemetry. Parker Hill MD
--- NOTE | 2017-06-30 01:38 | PN ---
DATE: SUBJECTIVE: The patient is a 81-year-old male. The patient is seen and examined at the bedside. A helper was feeding the patient having a dinner. Awake and alert, but confused. No nausea, vomiting, or diarrhea. No hematuria. No hematochezia. No swelling of the legs. No chest pain. No palpitations. The patient is a very poor historian. PHYSICAL EXAMINATION: VITAL SIGNS: Temperature 98.6, pulse 85, blood pressure 110/70. HEENT: Head is normocephalic and atraumatic. Eyes, PERRLA. Extraocular muscles intact. Conjunctivae are clear. Nose is patent. NECK: Supple. No carotid bruits, JVD, or thyromegaly. CHEST: Bilaterally symmetrical. HEART: S1 and S2 positive. LUNGS: Clear to auscultation. ABDOMEN: Soft. Bowel sounds present. No organomegaly. EXTREMITIES: No edema. No cyanosis. NEUROLOGIC: The patient is awake and alert. Moving all four extremities. No focal deficits. LABORATORY DATA: White blood cell is 10.9, hemoglobin 13.3, hematocrit 41.7, and platelets 164,000. Sodium 141, potassium 4.1, chloride 100, BUN 39, creatinine 0.9. ASSESSMENT AND PLAN: Mr. Arturo Harris is a 81-year-old male with altered mental status, confused, still on one to one observation, has respiratory tract infection, pneumonia, chronic kidney disease, diabetes mellitus, hypertension, hypercholesterolemia, left ventral hernia, urinary incontinence. Echocardiography was done. Chest x-ray done. mild vascular congestion, history of congestive heart failure, history of schizophrenia, cardiomyopathy, coronary artery disease, bipolar, noncompliant with medications. Avoid aspiration. Swallowing evaluation was done. Continue the present treatment. Repeat labs. We will follow up. January Estevez MD [facility]
[2017-06-30] MEDS: Albuterol-Ipratrop 3 mg / 0.5 (3 ml) UD IH SCH ×5 (01:39→21:11)
--- NOTE | 2017-06-30 02:25 | PN ---
PULMONARY PROGRESS NOTE DATE: 06/29/2017 REFERRING PHYSICIAN: January Estevez MD. SUBJECTIVE: He is lying in the bed, much better than yesterday, and seen by Speech Therapy. Diet is modified. The patient is edentulous under one-to-one supervision. Cough is better. No vomiting. No hematuria, diarrhea, or leg swelling. OBJECTIVE: GENERAL: In no acute distress. VITAL SIGNS: Temperature is 98, heart rate is 80, respiratory rate is 20, blood pressure is 114/77, and pulse oximetry is 97% on nasal cannula. HEENT: Moist mucous membrane. Small oral cavity. NECK: Supple. No JVD. LUNGS: Has a scattered rhonchi. HEART: S1 and S2. ABDOMEN: Soft and nontender. No organomegaly. EXTREMITIES: There is no edema. NEUROLOGIC: Awake, alert, and does follow simple commands, but confused. MEDICATIONS: He is on Coreg 3.125 mg twice a day, Depakote 750 mg 3 times a day, DuoNeb q.2 hours p.r.n., Glucotrol 2.5 mg a.c.b., insulin coverage, Lasix 20 mg daily, Lipitor 80 mg daily, Plavix 75 mg daily, Tylenol p.r.n. basis, Vantin 200 mg q.12 hours, Xanax 0.5 mg 3 times a day, and Zestril 2.5 mg daily. LABORATORY DATA: Shows hemoglobin 13.6, hematocrit 41.7, WBC, 10.9, and platelet count is 164. Sodium 141, potassium 4.1, chloride 102, bicarbonate 31, BUN 39, creatinine 0.9, glucose 115, and calcium 8.3. AST 44, ALT 35, alkaline phosphatase is 39, and albumin is 3.2. Chest x-ray shows mild vascular congestion. IMPRESSION AND PLAN: Cardiomyopathy with decreased left ventricular function, coronary artery disease, hypertension, diabetes, bipolar disorder, noncompliant with medications, oropharyngeal dysphagia, and modified diet. Case discussed with the nursing staff, keep head at 45 degrees, encourage to , and fall precaution. Followup labs in the morning. Thank you and we will follow with you. Parker Beasley MD
[2017-06-30] MEDS ORDERED: Lidocaine 2% Inj (20ml) ONE (03:41)
[2017-06-30] MEDS ORDERED: Phenylephrine 10 mg/ml Inj ONE (03:41)
[2017-06-30] MEDS ORDERED: Midazolam 2 MG/2 ML VIAL ONE (03:42)
[2017-06-30] MEDS ORDERED: Iohexol 350mgl/ml 50 ML ONE (03:43)
[2017-06-30] MEDS ORDERED: Iodixanol 320 MG/ML 100 ML BOTTLE IV ONE (03:44)
[2017-06-30] MEDS ORDERED: Nitroglycerin 50mg in D5W 0 MG/0 ML BOTTLE IV ONE (03:44)
[2017-06-30] MEDS ORDERED: Iodixanol 320 MG/ML 200 ML BOTTLE IV ONE (03:44)
[2017-06-30] MEDS ORDERED: HEPARIN SODIUM/NS 2,000 ML IV ONE (03:44)
[2017-06-30] MEDS: Divalproex 250 mg DR (BID formulation) PO SCH ×3 (09:26→17:32)
[2017-06-30] MEDS: Cefpodoxime (Vantin) 200 mg Tab PO SCH ×2 (09:28→22:00)
[2017-06-30] MEDS: Insulin Reg-LOW-Coverage SC SCH ×4 (09:39→22:00)
--- NOTE | 2017-06-30 13:21 | PN ---
DATE: 06/30/2017 REASON FOR CONSULTATION AND FOLLOWUP: Shortness of breath, altered mental status 1:1, and two-point positive restraints. SUBJECTIVE: Patient denies any chest pain, shortness of breath, any palpitations. PHYSICAL EXAMINATION GENERAL: Not in apparent distress. Lying comfortable in the bed with 1:1 observation. VITAL SIGNS: As follows: Temperature afebrile, heart rate , blood pressure 109/61. HEENT: PERRLA. Extraocular muscles intact. NECK: Supple. No carotid bruits or thyromegaly. CHEST: Clear to auscultation. HEART: S1 and S2 regular. ABDOMEN: Soft. EXTREMITIES: Clubbing and cyanosis negative. EKG shows normal sinus. Telemetry shows normal sinus. Blood workup as follows: WBC 10.9, hemoglobin 13, hematocrit 41.7, platelet count 164. Chemistry shows sodium 141, potassium 4.0, chloride 102, carbon dioxide 31, anion gap of 12, BUN 39, creatinine 0.9. ASSESSMENT AND PLAN: Altered mental status, confused, 1:1 observation, respiratory tract infection, possible pneumonia, chronic kidney disease, diabetes, hypertension, hyperlipidemia, left ventral hernia, urinary incontinence. Patient's last echo day before yesterday 06/26/2017 that shows concentric left ventricular hypertrophy, mildly impaired left ventricular function, ejection fraction 40% to 45%, [id number] aortic regurgitation, mild aortic stenosis versus aortic sclerosis, [id number] tricuspid regurgitation, right ventricular systolic pressure 30, kidney function significantly improved back to the baseline, on creatinine was 2.6. RECOMMENDATIONS: Continue Coreg, low dose. Continue antibiotics, continue lisinopril, monitor renal function closely, discontinue telemetry, CVS status is stable. No plan for invasive cardiac workup or further workup. We will follow with you. Medical treatment at this time. Thank you Dr. Estevez for providing us the opportunity in taking care of the patient, Steven Morris. Parker Hill MD
[2017-06-30] MEDS: guaiFENesin DM 100 mg-10 mg/5 ml UD PO PRN (14:55)
--- NOTE | 2017-07-01 01:41 | PN ---
DATE: 06/30/2017 REFERRING PHYSICIAN: January Estevez MD SUBJECTIVE: He is lying in the bed at 45 degrees. Just finished his dinner, acute short of breath, dropped his pulse ox to low 80s, diffuse rhonchus and wheezing. Respiratory is at bedside. The patient placed on noninvasive ventilation with immediate improvement in the pulse ox from 80% to 83% to 98% on BiPAP. No hemoptysis, no hematemesis, no hematuria, no diarrhea and no leg swelling reported. OBJECTIVE: GENERAL: Mild to moderate distress secondary to respiratory difficulty. VITAL SIGNS: Temp is 98, heart rate is 81, respiratory rate is 30, blood pressure 110/69. Pulse ox dropped down to 82%; after BiPAP placement, it went up to 98%. HEENT: Moist mucous membranes. Edentulous. Small oral cavity. LUNGS: Have scattered rhonchus and wheezing. HEART: S1 and S2. ABDOMEN: Soft and nontender. No organomegaly. EXTREMITIES: No edema. NEUROLOGIC: Awake and alert. Follows simple command. MEDICATIONS: He is on Aricept 10 mg at bedtime, aspirin 81 mg daily, Coreg 3.125 mg twice a day, Depakote 750 mg 3 times a day, DuoNeb q. 6 hours and q. 2 hours p.r.n., glipizide 2.5 mg, ACB insulin coverage, Lasix 20 mg daily, Lipitor 80 mg daily, 5 mg daily, Robitussin DM 5 mL q. 6 hours p.r.n., Tylenol p.r.n., Ventin 200 mg q. 12 hours, Xanax 0.5 mg 3 times a day, Zestril 2.5 mg daily. LABORATORY DATA: Reviewed. Blood sugar is 80. IMPRESSION AND PLAN: Acute respiratory distress with respiratory failure requiring noninvasive ventilation. This is the third episode of this gentleman with most likely aspiration related. Other events are the same, after eating he went to acute respiratory distress; has cardiomyopathy with decreased LV function, hypertension, diabetes, bipolar disorder. Case discussed with the nursing staff. Spoke to respiratory therapist. We will continue BiPAP for now and tonight. Place the patient n.p.o. except medication. We will have speech therapy reevaluate the patient. Also spoke to PMD Dr. Estevez in detail. May need GI evaluation. Possibly in need of G-tube placement?. The patient is high risk for recurring aspiration and respiratory failure. We will follow. Parker Beasley MD
[2017-07-01] MEDS: Albuterol-Ipratrop 3 mg / 0.5 (3 ml) UD IH SCH ×5 (02:14→21:13)
--- NOTE | 2017-07-01 04:25 | PN ---
DATE: SUBJECTIVE: Patient is a 81-year-old male. The patient was seen and examined at the bedside, having BiPAP. Both upper extremities were restrained. After my round, I received call that there was rapid response. For this patient, during this admission, we had three times rapid response. As soon as he is eating, he is aspirating. Actually we called swallowing evaluation and they did recommendation. Even according to that recommendation, the patient was doing aspiration. Length of time discussion done with Dr. Beasley. Now GI consult called for PEG tube placement. No fever. No chills. No nausea, vomiting, diarrhea. No headache. No dizziness. No chest pain. No palpitation. PHYSICAL EXAMINATION: VITAL SIGNS: Temperature 97.8, pulse 87, blood pressure 129/83, respiratory rate 18. HEENT: Head normocephalic, atraumatic. Eyes PERRLA. Extraocular muscles intact. Conjunctivae are clear. Nose is patent. Mucous membrane moist. NECK: Supple. No carotid bruit. No JVD or thyromegaly. CHEST: Bilaterally symmetrical. HEART: S1 and S2 positive. LUNGS: Clear to auscultation. ABDOMEN: Soft. Bowel sounds present. No organomegaly. EXTREMITIES: No edema. No cyanosis. NEUROLOGIC: Patient is awake and alert. Moving all four extremities. No focal deficits. MEDICATIONS: Aricept, aspirin, Ativan, Coreg, Depakote, DuoNeb, Glucotrol, insulin, Lasix, Lipitor, Plavix, Robitussin, Tylenol, Vantin, Xanax, Zestril. LABORATORY DATA: We do not have recent labs today, but reviewed old labs. Glucose 80, 82, 90. ASSESSMENT AND PLAN: Mr. Steven Morris is a 81-year-old male with multiple times aspiration, respiratory distress, cardiomyopathy with decreased left ventricular function, coronary artery disease, hypertension, diabetes mellitus, bipolar, noncompliant with medications, oropharyngeal dysphagia. He is on modified diet, but still aspirating. Discussion done with Dr. Beasley. GI consult called with Dr. Lux. Patient need percutaneous endoscopic gastrostomy tube. He has anterior abdominal wall hernia. Actually couple of months ago, the patient was seen by Dr. Parra in his office for herniorrhaphy, but patient refused surgery. Patient has history of schizophrenia, bipolar. Gastrointestinal and deep vein thrombosis prophylaxis, BiPAP. We will follow up. January Estevez MD
[2017-07-01 06:55] LABS: HEMOGLOBIN 13.5 g/dL (14.0-18.0); MEAN CELL VOLUME 104.3 fl (80.0-105.0); MEAN CORPUSCULAR HGB CONC 32.6 g/dl (31.0-37.0); MEAN PLATELET VOLUME 11.4 fl (7.0-11.0); RBC 3.97 10^6/uL (3.5-6.1); RED CELL DISTRIBUTION WIDTH 13.1 % (11.5-14.5); WHITE BLOOD COUNT 13.5 10^3/ul (4.5-11.0)
[2017-07-01 07:10] LABS: ALBUMIN 3.2 g/dL (3.0-4.8); ALT/SGPT 36 U/L (7-56); AST/SGOT 42 U/L (17-59); BLOOD UREA NITROGEN 34 mg/dL (7-21); CALCIUM 8.9 mg/dL (8.4-10.5); GFR AFRICAN-AMERICAN > 60; GFR NON-AFRICAN AMERICAN > 60
[2017-07-01 07:15] LABS: B-TYPE NATRIURETIC PEPTIDE 843 pg/mL (0-450)
--- NOTE | 2017-07-01 07:32 | CP.PCM.CON ---
<Cici Peralta - Last Filed: 07/01/17 08:26> History of Present Illness - History of Present Illness History of Present Illness: Gastroenterology Fellow/PGY5 Consult Note 81 year old male with history of BiPolar disorder, schizophrenia, Hypertension, Hyperlipidemia, Diabetes, and sCHF, EF45% 06/2017 presenting with weakness and shortness of breath. Patient states he is not sure why he is here and that he is hungry. Patient is only oriented to place and self. Nursing confirms NPO due to concern for aspiration after eating. On record review, three rapid responses for hypoxic respiratory insufficiency postprandial. Speech evaluation on 06/29 confirmed moderate oropharyngeal dysphagia with recommendation for puree diet with nectar thick liquids. Patient had recurrent hypoxic event leading to decompensation and BiPAP requirement overnight. Unable to confirm endoscopic evaluation history. Family-unable to confirm, poor historian Surgery- unable to confirm, poor historian Social- unable to confirm, poor historian Review of Systems - Review of Systems Review of Systems: 12-point review of systems negative except for as above Past Patient History - Infectious Disease Hx of Infectious Diseases: None - Tetanus Immunizations Tetanus Immunization: Unknown - Past Social History Smoking Status: Never Smoked - CARDIAC Hx Hypertension: Yes - PULMONARY Hx Tuberculosis: No - NEUROLOGICAL Hx Neurological Disorder: Yes Hx Dementia: Yes - ENDOCRINE/METABOLIC Hx Diabetes Mellitus Type 2: Yes - HEMATOLOGICAL/ONCOLOGICAL Hx Cancer: No - MUSCULOSKELETAL/RHEUMATOLOGICAL Hx Falls: No - GENITOURINARY/GYNECOLOGICAL Hx Sexually Transmitted Disorders: No - PSYCHIATRIC Hx Psychophysiologic Disorder: Yes Hx Anxiety: Yes Hx Bipolar Disorder: Yes Hx Substance Use: No - ANESTHESIA Hx Anesthesia: No Hx Anesthesia Reactions: No Hx Malignant Hyperthermia: No Meds Allergies/Adverse Reactions: Allergies Allergy/AdvReac Type Severity Reaction Status Date / Time No Known Allergies Allergy Verified 10/12/13 10:33 - Medications Medications: Current Medications Acetaminophen (Tylenol 325mg Tab) 650 mg PO Q4H PRN PRN Reason: Temperature Last Admin: 06/27/17 17:55 Dose: 650 mg Albuterol/Ipratropium (Duoneb 3 Mg/0.5 Mg (3 Ml) Ud) 3 ml IH [id number] [facility] Last Admin: 07/01/17 02:49 Dose: 3 ml Albuterol/Ipratropium (Duoneb 3 Mg/0.5 Mg (3 Ml) Ud) 3 ml IH Q2H PRN PRN Reason: Shortness of Breath Last Admin: 06/27/17 22:01 Dose: 3 ml Alprazolam (Xanax) 0.5 mg PO TID [facility] PRN Reason: Protocol Stop: 07/02/17 10:01 Last Admin: 06/30/17 19:01 Dose: Not Given Aspirin (Aspirin Chewable) 81 mg PO DAILY [facility] Last Admin: 06/30/17 09:27 Dose: 81 mg Atorvastatin Calcium (Lipitor) 80 mg PO 1800 [facility] Last Admin: 06/30/17 17:33 Dose: Not Given Carvedilol (Coreg) 3.125 mg PO BID [facility] Last Admin: 06/30/17 17:32 Dose: Not Given Cefpodoxime Proxetil (Vantin) 200 mg PO Q12 [facility] Last Admin: 06/30/17 22:00 Dose: Not Given Clopidogrel Bisulfate (Plavix) 75 mg PO DAILY [facility] Last Admin: 06/30/17 09:27 Dose: 75 mg Divalproex Sodium (Depakote Dr (*Bid*)) 750 mg PO TID [facility] Last Admin: 06/30/17 17:32 Dose: Not Given Donepezil HCl (Aricept) 10 mg PO HS [facility] Last Admin: 06/30/17 22:00 Dose: Not Given Furosemide (Lasix) 20 mg IVP DAILY [facility] Last Admin: 06/30/17 09:28 Dose: 20 mg Glipizide (Glucotrol) 2.5 mg PO ACB [facility] Last Admin: 06/30/17 09:28 Dose: 2.5 mg Guaifenesin/Dextromethorphan (Robitussin Dm) 5 ml PO Q6H PRN PRN Reason: Cough Last Admin: 06/30/17 14:55 Dose: 5 ml Insulin Human Regular (Humulin R Low) 0 units SC ACHS [facility] PRN Reason: Protocol Last Admin: 06/30/17 22:00 Dose: Not Given Lisinopril (Zestril) 2.5 mg PO DAILY [facility] Last Admin: 06/25/17 09:40 Dose: 2.5 mg Lorazepam (Ativan) 0.25 mg IVP BID PRN; Protocol PRN Reason: Anxiety Last Admin: 07/01/17 07:12 Dose: 0.25 mg Physical Exam - Constitutional Appears: Non-toxic, No Acute Distress - Head Exam Head Exam: ATRAUMATIC, NORMOCEPHALIC - Eye Exam Eye Exam: EOMI, PERRL Pupil Exam: PERRL. absent: Miosis, Mydriatic - ENT Exam ENT Exam: Mucous Membranes Moist, Normal Exam - Neck Exam Neck exam: Positive for: Full Rom, Normal Inspection - Respiratory Exam Respiratory Exam: Clear to Auscultation Bilateral. absent: Rales, Rhonchi, Wheezes - Cardiovascular Exam Cardiovascular Exam: RRR, +S1, +S2 - GI/Abdominal Exam GI & Abdominal Exam: Hernia, Normal Bowel Sounds, Soft. absent: Distended, Firm , Organomegaly, Rebound, Rigid Additional comments: large ventral hernia with abdominal binder in place - Extremities Exam Extremities exam: Positive for: normal inspection. Negative for: pedal edema - Neurological Exam Neurological exam: Alert - Psychiatric Exam Psychiatric exam: Normal Affect, Normal Mood - Skin Skin Exam: Dry, Intact, Normal Color, Warm Results - Vital Signs Recent Vital Signs: Last Vital Signs Temp 97.8 F 06/30/17 12:00 Pulse 87 06/30/17 17:50 Resp 18 06/30/17 12:00 BP 129/83 06/30/17 12:00 Pulse Ox 95 06/30/17 06:00 - Labs Result Diagrams: 07/01/17 06:00 07/01/17 06:00 Labs: Laboratory Results - last 24 hr 06/30/17 06/30/17 06/30/17 07:43 11:29 16:27 WBC RBC Hgb Hct MCV MCH MCHC RDW Plt Count MPV Sodium Potassium Chloride Carbon Dioxide Anion Gap BUN Creatinine Est GFR ( Amer) Est GFR (Non-Af Amer) POC Glucose (mg/dL) 90 82 80 Random Glucose Calcium Total Bilirubin AST ALT Alkaline Phosphatase NT-Pro-B Natriuret Pep Total Protein Albumin Globulin Albumin/Globulin Ratio 06/30/17 07/01/17 07/01/17 21:58 06:00 06:00 WBC 13.5 H D RBC 3.97 Hgb 13.5 L Hct 41.4 L MCV 104.3 MCH 34.0 MCHC 32.6 RDW 13.1 Plt Count 227 MPV 11.4 H Sodium 140 Potassium 4.6 Chloride 101 Carbon Dioxide 31 Anion Gap 12 BUN 34 H Creatinine 0.8 Est GFR ( Amer) > 60 Est GFR (Non-Af Amer) > 60 POC Glucose (mg/dL) 115 H Random Glucose 114 H Calcium 8.9 Total Bilirubin 1.1 AST 42 ALT 36 Alkaline Phosphatase 38 NT-Pro-B Natriuret Pep 843 H Total Protein 6.5 Albumin 3.2 Globulin 3.3 Albumin/Globulin Ratio 1.0 L Assessment & Plan - Assessment and Plan (Free Text) Assessment: 81 year old male with history of BiPolar disorder, schizophrenia, Hypertension, Hyperlipidemia, Diabetes, and sCHF, EF45% 06/2017 presenting with weakness and shortness of breath. PActive treatemtn of recurrent hypoxic respiratory insufficiency 2/2 aspiration postprandial requiring BiPAP overnight. Speech evaluation on 06/29 confirmed moderate oropharyngeal dysphagia with recommendation for puree diet with nectar thick liquids. Unable to confirm endoscopic evaluation history. Plan: >failed modified diet due to moderate oropharyngeal dysphagia with ongoing aspiration >obtain CT A/P IV contrast to evaluate ventral hernia anatomy >aspiration precautions >NPO >on antibiotic coverage >will require discussion with appointed administration at nursing facility for discussion on possible PEG placement - [place] [phone] >will follow clinical course <Rickey Lux - Last Filed: 07/01/17 14:30> Meds - Medications Medications: Current Medications Acetaminophen (Tylenol 325mg Tab) 650 mg PO Q4H PRN PRN Reason: Temperature Last Admin: 06/27/17 17:55 Dose: 650 mg Albuterol/Ipratropium (Duoneb 3 Mg/0.5 Mg (3 Ml) Ud) 3 ml IH [id number] [facility] Last Admin: 07/01/17 14:06 Dose: Not Given Albuterol/Ipratropium (Duoneb 3 Mg/0.5 Mg (3 Ml) Ud) 3 ml IH Q2H PRN PRN Reason: Shortness of Breath Last Admin: 06/27/17 22:01 Dose: 3 ml Alprazolam (Xanax) 0.5 mg PO TID [facility] PRN Reason: Protocol Stop: 07/02/17 10:01 Last Admin: 07/01/17 13:50 Dose: Not Given Aspirin (Aspirin Chewable) 81 mg PO DAILY [facility] Last Admin: 07/01/17 11:21 Dose: 81 mg Atorvastatin Calcium (Lipitor) 80 mg PO 1800 [facility] Last Admin: 06/30/17 17:33 Dose: Not Given Carvedilol (Coreg) 3.125 mg PO BID [facility] Last Admin: 07/01/17 11:21 Dose: 3.125 mg Cefpodoxime Proxetil (Vantin) 200 mg PO Q12 [facility] Last Admin: 07/01/17 11:20 Dose: 200 mg Clopidogrel Bisulfate (Plavix) 75 mg PO DAILY [facility] Last Admin: 07/01/17 11:20 Dose: 75 mg Divalproex Sodium (Depakote Dr (*Bid*)) 750 mg PO TID [facility] Last Admin: 07/01/17 13:51 Dose: Not Given Donepezil HCl (Aricept) 10 mg PO HS [facility] Last Admin: 06/30/17 22:00 Dose: Not Given Furosemide (Lasix) 20 mg IVP DAILY [facility] Last Admin: 07/01/17 11:22 Dose: 20 mg Glipizide (Glucotrol) 2.5 mg PO ACB [facility] Last Admin: 07/01/17 11:22 Dose: Not Given Guaifenesin/Dextromethorphan (Robitussin Dm) 5 ml PO Q6H PRN PRN Reason: Cough Last Admin: 06/30/17 14:55 Dose: 5 ml Insulin Human Regular (Humulin R Low) 0 units SC [facility] PRN Reason: Protocol Last Admin: 07/01/17 11:20 Dose: Not Given Lisinopril (Zestril) 2.5 mg PO DAILY [facility] Last Admin: 06/25/17 09:40 Dose: 2.5 mg Lorazepam (Ativan) 0.25 mg IVP BID PRN; Protocol PRN Reason: Anxiety Last Admin: 07/01/17 07:12 Dose: 0.25 mg Results - Vital Signs Recent Vital Signs: Last Vital Signs Temp 98.4 F 07/01/17 07:30 Pulse 81 07/01/17 07:30 Resp 22 07/01/17 07:30 BP 130/80 07/01/17 11:22 Pulse Ox 96 07/01/17 12:42 - Labs Result Diagrams: 07/01/17 06:00 07/01/17 06:00 Labs: Laboratory Results - last 24 hr 06/30/17 06/30/17 07/01/17 16:27 21:58 06:00 WBC 13.5 H D RBC 3.97 Hgb 13.5 L Hct 41.4 L MCV 104.3 MCH 34.0 MCHC 32.6 RDW 13.1 Plt Count 227 MPV 11.4 H Sodium Potassium Chloride Carbon Dioxide Anion Gap BUN Creatinine Est GFR ( Amer) Est GFR (Non-Af Amer) POC Glucose (mg/dL) 80 115 H Random Glucose Calcium Total Bilirubin AST ALT Alkaline Phosphatase NT-Pro-B Natriuret Pep Total Protein Albumin Globulin Albumin/Globulin Ratio 07/01/17 07/01/17 07/01/17 06:00 07:36 10:57 WBC RBC Hgb Hct MCV MCH MCHC RDW Plt Count MPV Sodium 140 Potassium 4.6 Chloride 101 Carbon Dioxide 31 Anion Gap 12 BUN 34 H Creatinine 0.8 Est GFR ( Amer) > 60 Est GFR (Non-Af Amer) > 60 POC Glucose (mg/dL) 104 103 Random Glucose 114 H Calcium 8.9 Total Bilirubin 1.1 AST 42 ALT 36 Alkaline Phosphatase 38 NT-Pro-B Natriuret Pep 843 H Total Protein 6.5 Albumin 3.2 Globulin 3.3 Albumin/Globulin Ratio 1.0 L Attending/Attestation - Attestation I have personally seen and examined this patient.: Yes I have fully participated in the care of the patient.: Yes I have reviewed all pertinent clinical information: Yes Notes (Text): 07/01/17 14:28 81 year old male with h/o Bipolar d/o, Schizophrenia, HTN, HLD, DM, Ventral hernia, CHF a/w shortness of breath, concern for aspiration. 1. Aspiration 2. Dysphagia Plan: -patient may be difficult PEG due to ventral hernia -recommend CT a/p to assess hernia -NPO and aspiration precautions in the interim -on antibiotics for pna
[2017-07-01] MEDS: Insulin Reg-LOW-Coverage SC SCH ×4 (07:57→22:46)
[2017-07-01] MEDS ORDERED: Iohexol 350 MG/100 ML VIAL ONE (10:42)
[2017-07-01] MEDS: Divalproex 250 mg DR (BID formulation) PO SCH ×3 (11:20→17:35)
[2017-07-01] MEDS: Cefpodoxime (Vantin) 200 mg Tab PO SCH ×2 (11:20→22:47)
[2017-07-02] MEDS: Albuterol-Ipratrop 3 mg / 0.5 (3 ml) UD IH SCH ×5 (01:20→21:50)
--- NOTE | 2017-07-02 06:18 | PN ---
DATE: 07/01/2017 PULMONARY PROGRESS NOTE REFERRING PHYSICIAN: January Estevez MD SUBJECTIVE: Arturo is lying in the bed, head at 45 degrees, wants to drinks water. Seen by Speech Therapy, recommended pureed diet. Cough is better. No nausea. No vomiting. No diarrhea. No leg pain or leg swelling. PHYSICAL EXAMINATION: VITAL SIGNS: Temperature is 98, heart rate is 80, respiratory rate is 20, blood pressure 114/79, pulse ox 96% on nasal cannula. HEENT: Moist mucous membranes. Edentulous. NECK: Supple. No JVD. LUNGS: Have scattered rhonchi. No wheezing. HEART: S1 and S2. ABDOMEN: Soft, nontender. No organomegaly. EXTREMITIES: No edema. NEUROLOGIC: Awake, alert, follows simple command. LABORATORY DATA: Shows hemoglobin 13.5, hematocrit 41.4, WBC 13.5, platelet is 227. Sodium 140, potassium 4.6, chloride 101, bicarbonate 31, BUN 34, creatinine 0.8, glucose 114, calcium 8.9, AST 42, ALT 36, alkaline phosphatase is 38. ProBNP 843, albumin is 3.2. MEDICATIONS: He is on Aricept 10 mg at bedtime, aspirin 81 mg daily, Ativan 0.25 mg twice a day p.r.n., Coreg 3.125 mg daily, Depakote 750 mg three times a day, DuoNeb q.6 hours, glipizide 2.5 mg before breakfast, Lasix 20 mg IV daily, Lipitor 80 mg daily, Plavix 75 mg daily, Robitussin 5 mL q.6 hours p.r.n., Tylenol p.r.n., Vantin 200 mg twice a day, Xanax 0.5 mg three times a day, Zestril 2.5 mg daily. IMPRESSION AND PLAN: Acute respiratory distress with respiratory failure, on noninvasive ventilation, today he is much better. Again, seen by Speech Therapy and was cleared for pureed diet. Probably has recurrent aspiration, needs extraordinary effort to have him set up and needs close followup while eating. He has cardiomyopathy with decreased left ventricular function, hypertension, diabetes, bipolar disorder. Gastrointestinal consult has been called. We will try again with pureed diet with close monitoring, high risk for aspiration. Gastric prophylaxis. Sequential compressive devices to lower extremity. Continue bronchodilators. Thank you, and we will follow. Parker Beasley MD
--- NOTE | 2017-07-02 06:26 | CP.PCM.PN ---
<Cici Peralta - Last Filed: 07/02/17 08:10> Subjective - Date & Time of Evaluation Date of Evaluation: 07/02/17 Time of Evaluation: 06:23 - Subjective Subjective: Gastroenterology Fellow/PGY5 Progress Note Patient slept well overnight. Nursing notes tolerated repeat trial of thickened liquids overnight. No bowel movement ovrnight. Nursing denies acute events overnight. A 12-point review of systems negative except for as above. Objective - Vital Signs/Intake and Output Vital Signs (last 24 hours): Temp Pulse Resp BP Pulse Ox 97.5 F L 73 18 112/70 94 L 07/02/17 00:00 07/02/17 00:00 07/02/17 00:00 07/02/17 00:00 07/02/17 00:00 Intake and Output: 07/01/17 07/02/17 18:59 06:59 Intake Total 120 Output Total 1000 500 Balance -1000 -380 - Medications Medications: Current Medications Acetaminophen (Tylenol 325mg Tab) 650 mg PO Q4H PRN PRN Reason: Temperature Last Admin: 06/27/17 17:55 Dose: 650 mg Albuterol/Ipratropium (Duoneb 3 Mg/0.5 Mg (3 Ml) Ud) 3 ml IH [id number] [facility] Last Admin: 07/02/17 01:20 Dose: Not Given Albuterol/Ipratropium (Duoneb 3 Mg/0.5 Mg (3 Ml) Ud) 3 ml IH Q2H PRN PRN Reason: Shortness of Breath Last Admin: 06/27/17 22:01 Dose: 3 ml Alprazolam (Xanax) 0.5 mg PO TID [facility] PRN Reason: Protocol Stop: 07/02/17 10:01 Last Admin: 07/01/17 17:33 Dose: 0.5 mg Aspirin (Aspirin Chewable) 81 mg PO DAILY [facility] Last Admin: 07/01/17 11:21 Dose: 81 mg Atorvastatin Calcium (Lipitor) 80 mg PO 1800 [facility] Last Admin: 07/01/17 17:32 Dose: 80 mg Carvedilol (Coreg) 3.125 mg PO BID [facility] Last Admin: 07/01/17 17:32 Dose: 3.125 mg Cefpodoxime Proxetil (Vantin) 200 mg PO Q12 [facility] Last Admin: 07/01/17 22:47 Dose: 200 mg Clopidogrel Bisulfate (Plavix) 75 mg PO DAILY [facility] Last Admin: 07/01/17 11:20 Dose: 75 mg Divalproex Sodium (Depakote Dr (*Bid*)) 750 mg PO TID [facility] Last Admin: 07/01/17 17:35 Dose: 750 mg Donepezil HCl (Aricept) 10 mg PO HS [facility] Last Admin: 07/01/17 22:47 Dose: 10 mg Furosemide (Lasix) 20 mg IVP DAILY [facility] Last Admin: 07/01/17 11:22 Dose: 20 mg Glipizide (Glucotrol) 2.5 mg PO ACB [facility] Last Admin: 07/01/17 11:22 Dose: Not Given Guaifenesin/Dextromethorphan (Robitussin Dm) 5 ml PO Q6H PRN PRN Reason: Cough Last Admin: 06/30/17 14:55 Dose: 5 ml Insulin Human Regular (Humulin R Low) 0 units SC ACHS [facility] PRN Reason: Protocol Last Admin: 07/01/17 22:46 Dose: Not Given Lisinopril (Zestril) 2.5 mg PO DAILY [facility] Last Admin: 06/25/17 09:40 Dose: 2.5 mg Lorazepam (Ativan) 0.25 mg IVP BID PRN; Protocol PRN Reason: Anxiety Last Admin: 07/01/17 07:12 Dose: 0.25 mg - Labs Labs: 07/01/17 06:00 07/01/17 06:00 PT 12.4 SECONDS (9.4-12.5) 06/24/17 19:55 INR 1.09 (0.93-1.08) H 06/24/17 19:55 APTT 30.4 Seconds (25.1-36.5) 06/24/17 19:55 - Constitutional Appears: Non-toxic, No Acute Distress - Head Exam Head Exam: ATRAUMATIC, NORMOCEPHALIC - Eye Exam Eye Exam: EOMI, PERRL Pupil Exam: PERRL. absent: Miosis, Mydriatic - ENT Exam ENT Exam: Mucous Membranes Moist, Normal Oropharynx - Neck Exam Neck Exam: Full ROM, Normal Inspection - Respiratory Exam Respiratory Exam: Clear to Ausculation Bilateral. absent: Rales, Rhonchi, Wheezes - Cardiovascular Exam Cardiovascular Exam: RRR, +S1, +S2. absent: Gallop, Rubs - GI/Abdominal Exam GI & Abdominal Exam: Soft, Hernia, Normal Bowel Sounds. absent: Distended, Firm , Guarding, Rigid, Tenderness, Organomegaly Additional comments: large ventral hernia - Extremities Exam Extremities Exam: Normal Inspection, Pedal Edema - Neurological Exam Neurological Exam: Alert, Awake - Psychiatric Exam Psychiatric exam: Normal Affect, Normal Mood - Skin Skin Exam: Dry, Intact, Normal Color, Warm Assessment and Plan - Assessment and Plan (Free Text) Assessment: 81 year old male with history of BiPolar disorder, schizophrenia, Hypertension, Hyperlipidemia, Diabetes, and sCHF, EF45% 06/2017 presenting with weakness and shortness of breath. Active treatment of recurrent hypoxic respiratory insufficiency 2/2 postprandial aspiration. Unable to confirm endoscopic evaluation history. Plan: >06/29 speech evaluation-moderate oropharyngeal dysphagia, puree diet with nectar thick liquids >1/20 tolerated thickened liquid trial >primary team ordered repeat trial of puree diet >witnessed oral intake at bedside with attending- appears to be intact without signs of choking/gagging >will hold off on CT A/P >continue aspiration precautions >on antibiotic coverage >will follow clinical course <Rickey Lux - Last Filed: 07/02/17 16:41> Objective - Vital Signs/Intake and Output Vital Signs (last 24 hours): Temp Pulse Resp BP Pulse Ox 97.4 F L 81 20 137/98 H 95 07/02/17 07:30 07/02/17 09:42 07/02/17 07:30 07/02/17 09:45 07/02/17 07:30 Intake and Output: 07/02/17 07/02/17 06:59 18:59 Intake Total 120 480 Output Total 500 800 Balance -380 -320 - Medications Medications: Current Medications Acetaminophen (Tylenol 325mg Tab) 650 mg PO Q4H PRN PRN Reason: Temperature Last Admin: 07/02/17 14:56 Dose: 650 mg Albuterol/Ipratropium (Duoneb 3 Mg/0.5 Mg (3 Ml) Ud) 3 ml IH [id number] [facility]INC[facility] Last Admin: 07/02/17 13:35 Dose: Not Given Albuterol/Ipratropium (Duoneb 3 Mg/0.5 Mg (3 Ml) Ud) 3 ml IH Q2H PRN PRN Reason: Shortness of Breath Last Admin: 06/27/17 22:01 Dose: 3 ml Aspirin (Aspirin Chewable) 81 mg PO DAILY [facility] Last Admin: 07/02/17 09:42 Dose: 81 mg Atorvastatin Calcium (Lipitor) 80 mg PO 1800 [facility] Last Admin: 07/01/17 17:32 Dose: 80 mg Carvedilol (Coreg) 3.125 mg PO BID [facility] Last Admin: 07/02/17 09:42 Dose: 3.125 mg Cefpodoxime Proxetil (Vantin) 200 mg PO Q12 [facility] Last Admin: 07/02/17 10:00 Dose: 200 mg Clopidogrel Bisulfate (Plavix) 75 mg PO DAILY [facility] Last Admin: 07/02/17 09:41 Dose: 75 mg Divalproex Sodium (Depakote Dr (*Bid*)) 750 mg PO TID [facility] Last Admin: 07/02/17 14:56 Dose: 750 mg Donepezil HCl (Aricept) 10 mg PO HS [facility] Last Admin: 07/01/17 22:47 Dose: 10 mg Furosemide (Lasix) 20 mg PO DAILY [facility] Glipizide (Glucotrol) 2.5 mg PO ACB [facility] Last Admin: 07/02/17 09:41 Dose: 2.5 mg Guaifenesin/Dextromethorphan (Robitussin Dm) 5 ml PO Q6H PRN PRN Reason: Cough Last Admin: 06/30/17 14:55 Dose: 5 ml Insulin Human Regular (Humulin R Low) 0 units SC ACHS [facility] PRN Reason: Protocol Last Admin: 07/02/17 11:15 Dose: 1 units Lisinopril (Zestril) 2.5 mg PO DAILY [facility] Last Admin: 06/25/17 09:40 Dose: 2.5 mg Lorazepam (Ativan) 0.25 mg IVP BID PRN; Protocol PRN Reason: Anxiety Last Admin: 07/01/17 07:12 Dose: 0.25 mg - Labs Labs: 07/02/17 06:15 07/02/17 06:15 PT 14.4 SECONDS (9.4-12.5) H 07/02/17 09:50 INR 1.25 (0.93-1.08) H 07/02/17 09:50 APTT 30.4 Seconds (25.1-36.5) 06/24/17 19:55 Attending/Attestation - Attestation I have personally seen and examined this patient.: Yes I have fully participated in the care of the patient.: Yes I have reviewed all pertinent clinical information, including history, physical exam and plan: Yes Notes (Text): 07/02/17 16:40 81 year old male with h/o Bipolar d/o, Schizophrenia, HTN, HLD, DM, Ventral hernia, CHF a/w shortness of breath, concern for aspiration. 1. Aspiration 2. Dysphagia Plan: -patient appears to be tolerated diet without aspiration at the moment -will hold off on peg for now -
[2017-07-02 07:26] LABS: HEMOGLOBIN 14.5 g/dL (14.0-18.0); MEAN CELL VOLUME 104.3 fl (80.0-105.0); MEAN CORPUSCULAR HEMOGLOBIN 34.6 pg (25.0-35.0); MEAN CORPUSCULAR HGB CONC 33.2 g/dl (31.0-37.0); MEAN PLATELET VOLUME 10.9 fl (7.0-11.0); RBC 4.19 10^6/uL (3.5-6.1); RED CELL DISTRIBUTION WIDTH 13.2 % (11.5-14.5); WHITE BLOOD COUNT 10.7 10^3/ul (4.5-11.0)
[2017-07-02 07:49] LABS: ALB/GLOB RATIO 0.9 (1.1-1.8); ALBUMIN 3.2 g/dL (3.0-4.8); ALT/SGPT 32 U/L (7-56); AST/SGOT 43 U/L (17-59); BLOOD UREA NITROGEN 34 mg/dL (7-21); CALCIUM 9.3 mg/dL (8.4-10.5); GFR AFRICAN-AMERICAN > 60; GFR NON-AFRICAN AMERICAN > 60
[2017-07-02] MEDS: Insulin Reg-LOW-Coverage SC SCH ×4 (08:00→22:00)
[2017-07-02] MEDS: Divalproex 250 mg DR (BID formulation) PO SCH ×3 (09:41→18:37)
[2017-07-02] MEDS: Cefpodoxime (Vantin) 200 mg Tab PO SCH ×2 (10:00→21:30)
[2017-07-02 10:22] LABS: INR 1.25 (0.93-1.08); PROTHROMBIN TIME 14.4 SECONDS (9.4-12.5)
[2017-07-03] MEDS: Albuterol-Ipratrop 3 mg / 0.5 (3 ml) UD IH SCH ×4 (01:32→21:04)
--- NOTE | 2017-07-03 03:07 | PN ---
DATE: 07/02/2017 REFERRING PHYSICIAN: January Estevez MD SUBJECTIVE: He is lying in the bed, head at 45 degrees, has some cough and wheezing. No nausea. No vomiting. No diarrhea. No leg pain. No leg swelling. OBJECTIVE: GENERAL: In no acute distress. VITAL SIGNS: Temperature is 98, heart rate is 81, respiratory rate is 20, blood pressure is 115/78, pulse oximetry 98% on nasal cannula. HEENT: Moist mucous membranes. Crowded airway. NECK: Supple. No JVD. LUNGS: Have scattered rhonchi with few wheezing. HEART: S1, S2. ABDOMEN: Has a large ventral hernia. EXTREMITIES: There is no edema. NEUROLOGIC: Awake and alert, follows simple commands. MEDICATIONS: He is on Aricept 10 mg at bedtime, aspirin 81 mg daily, Ativan 0.25 mg q. 12 hours p.r.n., Coreg 3.125 mg twice a day, Depakote 750 mg three times a day, DuoNeb q. 6 hours, glipizide 2.5 mg, a.c.b. insulin coverage, Lasix 20 mg daily, Lipitor 80 mg daily, Plavix 75 mg daily, Robitussin DM 5 mL q.6 hours p.r.n., Tylenol p.r.n., Vantin 200 mg twice a day, Zestril 2.5 mg daily. LABORATORY DATA: Shows hemoglobin 14.5, hematocrit 43.7, WBC 10.7, platelet is 267. INR 1.25. Sodium 141, potassium 4.2, chloride 101, bicarbonate 33, BUN 34, creatinine 0.9, glucose 113, calcium is 9.3, AST 43, ALT 32, alkaline phosphatase is 42, albumin is 3.2. IMPRESSION AND PLAN: Status post respiratory failure, requiring noninvasive ventilation secondary to oropharyngeal dysphagia and aspiration. Swallow evaluation was repeated. The patient is refusing the G-tube. Spoke with nursing staff and requested to keep the patient head elevated at 45 degrees, especially when he is eating, on modified diet. Cardiomyopathy, hypertension, diabetes, bipolar disorder. The patient should be sitting up each time with meal, high risk for respiratory failure secondary to aspiration. GI consult was requested. Thank you and we will follow with you. Parker Beasley MD [facility] # [id number]
--- NOTE | 2017-07-03 05:29 | PN ---
DATE: 07/02/2017 SUBJECTIVE: The patient seen and examined at the bedside on 07/02/2017. The patient looks comfortable. No nausea, vomiting, or diarrhea. Repeat trial of thickened liquid over night was given. No bowel movement. No over night event noted. No fever. No chills. No hematuria or hematochezia. No swelling of the legs. PHYSICAL EXAMINATION VITAL SIGNS: Temperature 97.5, pulse 73, respiratory rate 18, blood pressure 112/70, and pulse oximetry 94%. HEENT: Head normocephalic and atraumatic. Eyes; PERRLA. Extraocular muscles intact. Conjunctivae clear. Nose patent. Mucous membranes moist. NECK: Supple. No carotid bruits. No JVD or thyromegaly. CHEST: Bilaterally symmetrical. HEART: S1 and S2 positive. LUNGS: Clear to auscultation. ABDOMEN: Soft. Bowel sounds positive. No organomegaly. EXTREMITIES: No edema. No cyanosis. NEUROLOGIC: The patient is awake and alert. Moving all 4 extremities. No focal deficit. MEDICATIONS: Tylenol, DuoNeb, Xanax, aspirin, Lipitor, Coreg, Vantin, Plavix, Depakote, Aricept, Lasix, Glucotrol, Robitussin, insulin, Zestril and Ativan p.r.n. LABORATORY DATA: White blood cell is 13.5, hemoglobin 13.5, hematocrit 41.4, and platelets 227. Sodium 140, potassium 4.6, BUN 34, creatinine 1.8 and glucose 114. ASSESSMENT AND PLAN: Mr. Steven Morris is a 81-year-old male with the leukocytosis, anemia, hyperglycemia with the history of bipolar disorder, schizophrenia, hypertension, hypercholesterolemia, congestive heart failure ejection fraction of more then 45%, has weakness and shortness of breath. History of repeatedly aspiration. Getting the treatment of hypoxic respiratory insufficiency, post prandial aspiration, unable to confirm endoscopic evaluation history, couple of years the patient did not have endoscopy, before that I do not know because the patient came from some other facility. Speech evaluation done shows oropharyngeal dysphagia, pureed diet with nectar thick liquids with extra careful support, aspiration precaution, provided thick liquid trial. Continue aspiration precaution on antibiotics. History of ventral abdominal wall big hernia and dysphagia. According to Gastroenterology, the patient appears to be tolerated her diet without aspiration at the movement with hold off on percutaneous endoscopic gastrostomy tube now. Patient had at least 3 times rapid response because of aspiration getting respiratory insufficiency, atrial cardiomyopathy. Review Dr. Beasley and Dr. Lux's notes. Continue bilevel positive airway pressure for now and tonight. Discussion done with Dr. Beasley also. Gastrointestinal and deep vein thrombosis prophylaxis. Repeat labs. We will follow up. January Estevez MD
[2017-07-03 07:17] LABS: HEMOGLOBIN 13.7 g/dL (14.0-18.0); MEAN CELL VOLUME 102.5 fl (80.0-105.0); MEAN CORPUSCULAR HEMOGLOBIN 34.3 pg (25.0-35.0); MEAN CORPUSCULAR HGB CONC 33.5 g/dl (31.0-37.0); MEAN PLATELET VOLUME 10.8 fl (7.0-11.0); RBC 3.99 10^6/uL (3.5-6.1); RED CELL DISTRIBUTION WIDTH 13.1 % (11.5-14.5)
[2017-07-03 07:39] LABS: BLOOD UREA NITROGEN 29 mg/dL (7-21); CALCIUM 8.9 mg/dL (8.4-10.5); GFR AFRICAN-AMERICAN > 60; GFR NON-AFRICAN AMERICAN > 60
--- NOTE | 2017-07-03 07:47 | CP.PCM.PN ---
<FabianCici - Last Filed: 07/03/17 10:34> Subjective - Date & Time of Evaluation Date of Evaluation: 07/03/17 Time of Evaluation: 07:43 - Subjective Subjective: Gastroenterology Fellow/PGY5 Progress Note Patient resting comfortably. Nursing confirms tolerated puree diet without aspiration. One bowel movement overnight. A 12-point review of systems negative except for as above. Objective - Vital Signs/Intake and Output Vital Signs (last 24 hours): Temp Pulse Resp BP Pulse Ox 98.2 F 77 22 115/75 93 L 07/03/17 07:30 07/03/17 07:30 07/03/17 07:30 07/03/17 07:30 07/03/17 07:30 Intake and Output: 07/03/17 07/03/17 06:59 18:59 Intake Total 480 Output Total 600 Balance -120 - Medications Medications: Current Medications Acetaminophen (Tylenol 325mg Tab) 650 mg PO Q4H PRN PRN Reason: Temperature Last Admin: 07/02/17 14:56 Dose: 650 mg Albuterol/Ipratropium (Duoneb 3 Mg/0.5 Mg (3 Ml) Ud) 3 ml IH [id number] [facility] Last Admin: 07/03/17 01:32 Dose: Not Given Albuterol/Ipratropium (Duoneb 3 Mg/0.5 Mg (3 Ml) Ud) 3 ml IH Q2H PRN PRN Reason: Shortness of Breath Last Admin: 06/27/17 22:01 Dose: 3 ml Aspirin (Aspirin Chewable) 81 mg PO DAILY [facility] Last Admin: 07/02/17 09:42 Dose: 81 mg Atorvastatin Calcium (Lipitor) 80 mg PO 1800 [facility] Last Admin: 07/02/17 18:37 Dose: 80 mg Carvedilol (Coreg) 3.125 mg PO BID [facility] Last Admin: 07/02/17 18:37 Dose: 3.125 mg Cefpodoxime Proxetil (Vantin) 200 mg PO Q12 [facility] Last Admin: 07/02/17 21:30 Dose: 200 mg Clopidogrel Bisulfate (Plavix) 75 mg PO DAILY [facility] Last Admin: 07/02/17 09:41 Dose: 75 mg Divalproex Sodium (Depakote Dr (*Bid*)) 750 mg PO TID [facility] Last Admin: 07/02/17 18:37 Dose: 750 mg Donepezil HCl (Aricept) 10 mg PO HS [facility] Last Admin: 07/02/17 21:30 Dose: 10 mg Furosemide (Lasix) 20 mg PO DAILY [facility] Glipizide (Glucotrol) 2.5 mg PO ACB [facility] Last Admin: 07/02/17 09:41 Dose: 2.5 mg Guaifenesin/Dextromethorphan (Robitussin Dm) 5 ml PO Q6H PRN PRN Reason: Cough Last Admin: 06/30/17 14:55 Dose: 5 ml Insulin Human Regular (Humulin R Low) 0 units SC ACHS [facility] PRN Reason: Protocol Last Admin: 07/02/17 22:00 Dose: Not Given Lisinopril (Zestril) 2.5 mg PO DAILY [facility] Last Admin: 06/25/17 09:40 Dose: 2.5 mg Lorazepam (Ativan) 0.25 mg IVP BID PRN; Protocol PRN Reason: Anxiety Last Admin: 07/01/17 07:12 Dose: 0.25 mg - Labs Labs: 07/03/17 06:30 07/03/17 06:30 PT 14.4 SECONDS (9.4-12.5) H 07/02/17 09:50 INR 1.25 (0.93-1.08) H 07/02/17 09:50 APTT 30.4 Seconds (25.1-36.5) 06/24/17 19:55 - Constitutional Appears: Non-toxic, No Acute Distress - Head Exam Head Exam: ATRAUMATIC, NORMOCEPHALIC - Eye Exam Eye Exam: EOMI, PERRL Pupil Exam: PERRL. absent: Miosis, Mydriatic - ENT Exam ENT Exam: Mucous Membranes Moist, Normal Oropharynx - Neck Exam Neck Exam: Full ROM, Normal Inspection - Respiratory Exam Respiratory Exam: Clear to Ausculation Bilateral. absent: Rales, Rhonchi, Wheezes - Cardiovascular Exam Cardiovascular Exam: RRR, +S1, +S2. absent: Gallop, Rubs - GI/Abdominal Exam GI & Abdominal Exam: Soft, Hernia, Normal Bowel Sounds. absent: Distended, Firm , Guarding, Rigid, Tenderness, Organomegaly Additional comments: large ventral hernia - Extremities Exam Extremities Exam: Normal Inspection, Pedal Edema - Neurological Exam Neurological Exam: Alert, Awake - Psychiatric Exam Psychiatric exam: Normal Affect, Normal Mood - Skin Skin Exam: Dry, Intact, Normal Color, Warm Assessment and Plan - Assessment and Plan (Free Text) Assessment: 81 year old male with history of BiPolar disorder, schizophrenia, Hypertension, Hyperlipidemia, Diabetes, and sCHF, EF45% 06/2017 presenting with weakness and shortness of breath. Active treatment of recurrent hypoxic respiratory insufficiency 2/2 concern for postprandial aspiration with confirmed moderate oropharyngeal dysphagia on speech evaluation. Plan: >tolerating puree diet with nectar thick liquids >will hold off on PEG >continue aspiration precautions >thank you for opportunity to participate in the care of this patient. Please contact with questions or concerns <Anton Owusu - Last Filed: 07/03/17 16:25> Objective - Vital Signs/Intake and Output Vital Signs (last 24 hours): Temp Pulse Resp BP Pulse Ox 98.2 F 77 22 115/75 93 L 07/03/17 07:30 07/03/17 10:41 07/03/17 07:30 07/03/17 10:41 07/03/17 07:30 Intake and Output: 07/03/17 07/03/17 06:59 18:59 Intake Total 480 480 Output Total 600 150 Balance -120 330 - Medications Medications: Current Medications Acetaminophen (Tylenol 325mg Tab) 650 mg PO Q4H PRN PRN Reason: Temperature Last Admin: 07/02/17 14:56 Dose: 650 mg Albuterol/Ipratropium (Duoneb 3 Mg/0.5 Mg (3 Ml) Ud) 3 ml IH [id number] [facility] Last Admin: 07/03/17 13:07 Dose: Not Given Albuterol/Ipratropium (Duoneb 3 Mg/0.5 Mg (3 Ml) Ud) 3 ml IH Q2H PRN PRN Reason: Shortness of Breath Last Admin: 06/27/17 22:01 Dose: 3 ml Aspirin (Aspirin Chewable) 81 mg PO DAILY [facility] Last Admin: 07/03/17 10:41 Dose: 81 mg Atorvastatin Calcium (Lipitor) 80 mg PO 1800 [facility] Last Admin: 07/02/17 18:37 Dose: 80 mg Carvedilol (Coreg) 3.125 mg PO BID [facility] Last Admin: 07/03/17 10:41 Dose: 3.125 mg Cefpodoxime Proxetil (Vantin) 200 mg PO Q12 [facility] Last Admin: 07/03/17 10:39 Dose: 200 mg Clopidogrel Bisulfate (Plavix) 75 mg PO DAILY [facility] Last Admin: 07/03/17 10:40 Dose: 75 mg Divalproex Sodium (Depakote Dr (*Bid*)) 750 mg PO TID [facility] Last Admin: 07/03/17 13:36 Dose: 750 mg Donepezil HCl (Aricept) 10 mg PO HS [facility] Last Admin: 07/02/17 21:30 Dose: 10 mg Furosemide (Lasix) 20 mg PO DAILY [facility] Last Admin: 07/03/17 10:39 Dose: 20 mg Glipizide (Glucotrol) 2.5 mg PO ACB [facility] Last Admin: 07/03/17 08:18 Dose: 2.5 mg Guaifenesin/Dextromethorphan (Robitussin Dm) 5 ml PO Q6H PRN PRN Reason: Cough Last Admin: 06/30/17 14:55 Dose: 5 ml Insulin Human Regular (Humulin R Low) 0 units SC ACHS [facility] PRN Reason: Protocol Last Admin: 07/03/17 13:19 Dose: Not Given Lisinopril (Zestril) 2.5 mg PO DAILY [facility] Last Admin: 06/25/17 09:40 Dose: 2.5 mg Lorazepam (Ativan) 0.25 mg IVP BID PRN; Protocol PRN Reason: Anxiety Last Admin: 07/01/17 07:12 Dose: 0.25 mg - Labs Labs: 07/03/17 06:30 07/03/17 06:30 PT 14.4 SECONDS (9.4-12.5) H 07/02/17 09:50 INR 1.25 (0.93-1.08) H 07/02/17 09:50 APTT 30.4 Seconds (25.1-36.5) 06/24/17 19:55 Attending/Attestation - Attestation I have personally seen and examined this patient.: Yes I have fully participated in the care of the patient.: Yes I have reviewed all pertinent clinical information, including history, physical exam and plan: Yes Notes (Text): 07/03/17 16:23 I have seen and examined patient with GI fellow. No acute events overnight, he is seen resting in bed comfortably. He has been tolerating PO puree diet without difficulty and denies abdominal pain, nausea, vomiting. Review of vitals from today are normal. Bipolar disorder DM CHF HTN Respiratory failure, ?aspiration though patient now able to tolerate puree diet - Continue with puree diet as tolerated - Maintain strict aspiration precautions with head of bed elevation during feeding - Given clinical scenario, no current indication for endoscopic feeding tube placement. No further planned GI intervention, will sign off case. Please reconsult as necessary, thank you.
[2017-07-03] MEDS: Insulin Reg-LOW-Coverage SC SCH ×4 (08:18→22:37)
--- NOTE | 2017-07-03 09:33 | PN ---
DATE: 07/01/2017 SUBJECTIVE: The patient was seen and examined under bedside on 07/01/2017. Looking comfortable but little bit anxious, does not want to eat or drink. Seen by swallowing evaluation, recommended pureed diet. Cough is better . No nausea, vomiting, or diarrhea. No hematuria or hematochezia. No swelling of the legs. No chest pain. No palpitations. No headache. No dizziness. PHYSICAL EXAMINATION: VITAL SIGNS: Temperature is 98, heart rate 80, respiratory rate is 20, blood pressure 120/70, and pulse 97% on room air. HEENT: Head normocephalic, atraumatic. Eyes: PERRLA. Extraocular muscles intact. Conjunctivae clear. Nose patent. Mucous membranes moist. NECK: Supple. No carotid bruits. No JVD or thyromegaly. CHEST: Bilaterally symmetrical. HEART: S1 and S2 positive. LUNGS: Clear to auscultation. ABDOMEN: Soft. Bowel sounds positive. No organomegaly. EXTREMITIES: No edema. No cyanosis. NEUROLOGIC: The patient is awake and alert. Moving all 4 extremities. No focal deficit. MEDICATIONS: Aricept, aspirin, Ativan, Coreg, Depakote, DuoNeb, glipizide, Lasix, Lipitor, Plavix, Robitussin, Tylenol, Vantin, Xanax, and Zestril. LABORATORY DATA: Hemoglobin 13.5, hematocrit 41.4, white blood cell 13.5, and platelets 227. Sodium 140, potassium 4.6, BUN 34, creatinine 0.8, glucose 140, calcium 8.9. AST 42, ALT 36. ASSESSMENT AND PLAN: The patient is a 73-year-old male with acute respiratory distress with respiratory failure, unknown invasive ventilation, doing better. Swallowing evaluation evaluated the patient, cleared for pureed diet. 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 The patient has history of cardiomyopathy, diffuse left ventricular ejection fraction, hypertension, diabetes, bipolar disorder, schizophrenia . Gastrointestinal consult called. The patient started on pureed diet, bring again evaluation. The patient is high risk for aspiration. Continue gastrointestinal prophylaxis and deep venous thrombosis prophylaxis. We will follow up. January Estevez MD [facility] # [id number]
[2017-07-03] MEDS: Cefpodoxime (Vantin) 200 mg Tab PO SCH ×2 (10:39→22:36)
[2017-07-03] MEDS: Divalproex 250 mg DR (BID formulation) PO SCH ×3 (10:41→18:31)
--- NOTE | 2017-07-03 12:22 | CP.PCM.PN ---
<Dejah Sr - Last Filed: 07/03/17 15:26> Subjective - Date & Time of Evaluation Date of Evaluation: 07/03/17 Time of Evaluation: 10:45 - Subjective Subjective: 81 yr male resident from [facility] w/ history of schizophrenia, HTN, bioplar disorder, anterior abdominal wall hernia, & DM II. Admitted for weakness, near syncope, & SOB. He refuses to wear nasal cannula. Pt has a thick accent and his baseline is confused. Poor historian. Objective - Vital Signs/Intake and Output Vital Signs (last 24 hours): Temp Pulse Resp BP Pulse Ox 98.2 F 77 22 115/75 93 L 07/03/17 07:30 07/03/17 10:41 07/03/17 07:30 07/03/17 10:41 07/03/17 07:30 Intake and Output: 07/03/17 07/03/17 06:59 18:59 Intake Total 480 Output Total 600 Balance -120 - Medications Medications: Current Medications Acetaminophen (Tylenol 325mg Tab) 650 mg PO Q4H PRN PRN Reason: Temperature Last Admin: 07/02/17 14:56 Dose: 650 mg Albuterol/Ipratropium (Duoneb 3 Mg/0.5 Mg (3 Ml) Ud) 3 ml IH [id number] [facility] Last Admin: 07/03/17 07:48 Dose: Not Given Albuterol/Ipratropium (Duoneb 3 Mg/0.5 Mg (3 Ml) Ud) 3 ml IH Q2H PRN PRN Reason: Shortness of Breath Last Admin: 06/27/17 22:01 Dose: 3 ml Aspirin (Aspirin Chewable) 81 mg PO DAILY [facility] Last Admin: 07/03/17 10:41 Dose: 81 mg Atorvastatin Calcium (Lipitor) 80 mg PO 1800 [facility] Last Admin: 07/02/17 18:37 Dose: 80 mg Carvedilol (Coreg) 3.125 mg PO BID [facility] Last Admin: 07/03/17 10:41 Dose: 3.125 mg Cefpodoxime Proxetil (Vantin) 200 mg PO Q12 [facility] Last Admin: 07/03/17 10:39 Dose: 200 mg Clopidogrel Bisulfate (Plavix) 75 mg PO DAILY [facility] Last Admin: 07/03/17 10:40 Dose: 75 mg Divalproex Sodium (Depakote Dr (*Bid*)) 750 mg PO TID [facility] Last Admin: 07/03/17 10:41 Dose: 750 mg Donepezil HCl (Aricept) 10 mg PO HS [facility] Last Admin: 07/02/17 21:30 Dose: 10 mg Furosemide (Lasix) 20 mg PO DAILY [facility] Last Admin: 07/03/17 10:39 Dose: 20 mg Glipizide (Glucotrol) 2.5 mg PO ACB [facility] Last Admin: 07/03/17 08:18 Dose: 2.5 mg Guaifenesin/Dextromethorphan (Robitussin Dm) 5 ml PO Q6H PRN PRN Reason: Cough Last Admin: 06/30/17 14:55 Dose: 5 ml Insulin Human Regular (Humulin R Low) 0 units SC ACHS [facility] PRN Reason: Protocol Last Admin: 07/03/17 08:18 Dose: Not Given Lisinopril (Zestril) 2.5 mg PO DAILY [facility] Last Admin: 06/25/17 09:40 Dose: 2.5 mg Lorazepam (Ativan) 0.25 mg IVP BID PRN; Protocol PRN Reason: Anxiety Last Admin: 07/01/17 07:12 Dose: 0.25 mg - Labs Labs: 07/03/17 06:30 07/03/17 06:30 PT 14.4 SECONDS (9.4-12.5) H 07/02/17 09:50 INR 1.25 (0.93-1.08) H 07/02/17 09:50 APTT 30.4 Seconds (25.1-36.5) 06/24/17 19:55 - Constitutional Appears: Chronically Ill - Head Exam Head Exam: ATRAUMATIC, NORMAL INSPECTION, NORMOCEPHALIC - Eye Exam Eye Exam: EOMI, Normal appearance, PERRL Pupil Exam: NORMAL ACCOMODATION, PERRL - ENT Exam ENT Exam: Mucous Membranes Moist, Normal Exam - Neck Exam Neck Exam: Full ROM, Normal Inspection. absent: Lymphadenopathy - Respiratory Exam Respiratory Exam: Decreased Breath Sounds, Rhonchi - Cardiovascular Exam Cardiovascular Exam: REGULAR RHYTHM, +S1, +S2. absent: Murmur - GI/Abdominal Exam GI & Abdominal Exam: Soft, Normal Bowel Sounds. absent: Tenderness - Extremities Exam Extremities Exam: Full ROM, Normal Capillary Refill, Normal Inspection. absent : Joint Swelling, Pedal Edema - Back Exam Back Exam: NORMAL INSPECTION - Neurological Exam Neurological Exam: Alert, Awake - Psychiatric Exam Psychiatric exam: Depressed, Flat Affect - Skin Skin Exam: Dry, Intact, Normal Color, Warm Assessment and Plan (1) Sinusitis Status: Resolved (2) Dehydration Status: Acute (3) Neutrophilia Status: Acute (4) Hypocalcemia Status: Acute (5) Abnormal LFTs Status: Acute (6) HTN (hypertension) Status: Acute (7) Dementia Status: Acute (8) Bipolar disorder Status: Acute (9) CHF (congestive heart failure) Status: Acute (10) Near syncope Status: Acute (11) Agitated Status: Acute (12) Encephalopathy Status: Acute (13) Anemia Status: Acute - Assessment and Plan (Free Text) Plan: Will observe patient for 24 hr period. Pegtube insertion refused by patient and canceled by GI. If no episodes of aspiration, pt may return to [facility]. Labs ordered. Bipap HS. GI/VTE prophlyaxis Consults: Neurologist - Dr. 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 Mccall - BNP elevated s/t dehydration Palliative Care - [facility] GI - Dr. Lux - Reviewed: CXR = mild vascular congestion US RLE = WNL CT head = atrophy, chronic small vessel ischemia disease, encephalomalcia in R cerebellum. mild mucosal thickening of the ethmoid/frontal sinuses. ECHO = EF 40-45%, systolic function milding impaired ECG = ABNORMAL, NSR, low voltage QRS, inferior infarct, anteroseptal infarct ECG = normal drowsy EEG <January Estevez - Last Filed: 07/03/17 20:26> Objective - Vital Signs/Intake and Output Vital Signs (last 24 hours): Temp Pulse Resp BP Pulse Ox 97.8 F 73 20 115/80 95 07/03/17 16:00 07/03/17 18:31 07/03/17 16:00 07/03/17 18:31 07/03/17 16:00 Intake and Output: 07/03/17 07/04/17 18:59 06:59 Intake Total 480 Output Total 150 Balance 330 - Medications Medications: Current Medications Acetaminophen (Tylenol 325mg Tab) 650 mg PO Q4H PRN PRN Reason: Temperature Last Admin: 07/02/17 14:56 Dose: 650 mg Albuterol/Ipratropium (Duoneb 3 Mg/0.5 Mg (3 Ml) Ud) 3 ml IH [id number] [facility] Last Admin: 07/03/17 13:07 Dose: Not Given Albuterol/Ipratropium (Duoneb 3 Mg/0.5 Mg (3 Ml) Ud) 3 ml IH Q2H PRN PRN Reason: Shortness of Breath Last Admin: 06/27/17 22:01 Dose: 3 ml Aspirin (Aspirin Chewable) 81 mg PO DAILY [facility] Last Admin: 07/03/17 10:41 Dose: 81 mg Atorvastatin Calcium (Lipitor) 80 mg PO 1800 [facility] Last Admin: 07/03/17 18:31 Dose: 80 mg Carvedilol (Coreg) 3.125 mg PO BID [facility] Last Admin: 07/03/17 18:31 Dose: 3.125 mg Cefpodoxime Proxetil (Vantin) 200 mg PO Q12 [facility] Last Admin: 07/03/17 10:39 Dose: 200 mg Clopidogrel Bisulfate (Plavix) 75 mg PO DAILY [facility] Last Admin: 07/03/17 10:40 Dose: 75 mg Divalproex Sodium (Depakote Dr (*Bid*)) 750 mg PO TID [facility] Last Admin: 07/03/17 18:31 Dose: 750 mg Donepezil HCl (Aricept) 10 mg PO HS [facility] Last Admin: 07/02/17 21:30 Dose: 10 mg Furosemide (Lasix) 20 mg PO DAILY [facility] Last Admin: 07/03/17 10:39 Dose: 20 mg Glipizide (Glucotrol) 2.5 mg PO ACB [facility] Last Admin: 07/03/17 08:18 Dose: 2.5 mg Guaifenesin/Dextromethorphan (Robitussin Dm) 5 ml PO Q6H PRN PRN Reason: Cough Last Admin: 06/30/17 14:55 Dose: 5 ml Insulin Human Regular (Humulin R Low) 0 units SC [facility] PRN Reason: Protocol Last Admin: 07/03/17 18:30 Dose: Not Given Lisinopril (Zestril) 2.5 mg PO DAILY [facility] Last Admin: 06/25/17 09:40 Dose: 2.5 mg Lorazepam (Ativan) 0.25 mg IVP BID PRN; Protocol PRN Reason: Anxiety Last Admin: 07/01/17 07:12 Dose: 0.25 mg - Labs Labs: 07/03/17 06:30 07/03/17 06:30 PT 14.4 SECONDS (9.4-12.5) H 07/02/17 09:50 INR 1.25 (0.93-1.08) H 07/02/17 09:50 APTT 30.4 Seconds (25.1-36.5) 06/24/17 19:55 Assessment and Plan - Assessment and Plan (Free Text) Plan: 81 yr male resident from [facility] w/ history of schizophrenia, HTN, bioplar disorder, anterior abdominal wall hernia, & DM II. Admitted for weakness, near syncope, & SOB. He refuses to wear nasal cannula. Pt has a thick accent and his baseline is confused. Poor historian.during ths hosptlization pt williamson 3 rapid responses , had aspiration risk . gi is on the case , will f/u
--- NOTE | 2017-07-03 16:03 | PN ---
DATE: 07/03/2017 The patient is in room 563, bed 1. REASON FOR CONSULTATION AND FOLLOWUP: Shortness of breath, altered mental status, ventral hernia, post respiratory failure requiring non-invasive ventilation secondary to oropharyngeal dysphagia and aspiration. SUBJECTIVE: The patient lying comfortably in bed at the present without chest pain. Denies shortness of breath. Denies palpitation. PHYSICAL EXAMINATION: VITAL SIGNS: Blood pressure 115/75, respirations 22, pulse 77, temperature 98.2. HEENT: Head is normocephalic. Eyes: Pupils normal. Conjunctivae normal. Nose and throat normal. NECK: JVP low, carotids equal. THORAX: AP diameter normal. LUNGS: No rhonchi. A few wheezing. Expiratory wheezing sound heard. CARDIOVASCULAR: S1 and S2. ABDOMEN: Protuberant. Large ventral hernia. Bowel sounds normal. EXTREMITIES: No clubbing. No cyanosis. LABORATORY DATA: WBC 11.0, hemoglobin 13.7, hematocrit 40.9, platelets 304. Sodium 139, potassium 4.1, BUN 29, creatinine 0.8. Sugar 102, random glucose 105, calcium 8.9. DIAGNOSES: Status post respiratory failure requiring non-invasive ventilation secondary oropharyngeal dysphagia and aspiration; hypertension; cardiomyopathy, mild impaired left ventricular systolic function with left ventricular ejection fraction of 40% to 45% on echo of 06/26/2017 along with calcific aortic valves versus mild aortic stenosis; diabetes mellitus; bipolar disorder; hyperlipidemia; chronic kidney disease; large ventral hernia. MEDICATIONS: The patient on aspirin 81 mg daily, carvedilol 3.125 b.i.d., furosemide 20 mg daily, Lipitor 80 mg daily, Plavix 75 daily, Vantin 200 mg p.o. q.12 hour, lisinopril 2.5 mg daily. PLAN: The patient lying with the head up upright to avoid aspiration. As per DrSee ____ the patient refused a feeding tube. We will continue present therapy. We will follow. Parker Mccall MD
[2017-07-04] MEDS: Albuterol-Ipratrop 3 mg / 0.5 (3 ml) UD IH SCH ×4 (02:12→14:05)
--- NOTE | 2017-07-04 02:25 | PN ---
DATE: 07/03/2017. PULMONARY PROGRESS NOTE REFERRING PHYSICIAN: January Estevez MD SUBJECTIVE: He is lying in the bed, head at 45 degrees. Feels much better. Still has some cough and wheezing. No nausea, no vomiting, no diarrhea. No leg pain or leg swelling. OBJECTIVE: GENERAL: In no acute distress. VITAL SIGNS: Temperature 98, heart rate is 73, respiratory rate is 20, blood pressure 115/80, and pulse ox is 95% on room air. HEENT: Moist mucous membranes. Edentulous. Small oral cavity. LUNGS: Have scattered rhonchi. Prolonged expiratory phase. No wheezing. HEART: S1 and S2. ABDOMEN: Has large hernia. EXTREMITIES: There is no edema. NEUROLOGIC: Awake, alert, and follows simple commands. MEDICATIONS: He is on Aricept 10 mg at bedtime, aspirin 81 mg daily, Ativan 0.25 mg IV q.12 hours p.r.n., Coreg 3.125 mg twice a day, Depakote 750 mg three times a day, albuterol and Atrovent nebulizer q.12 hours p.r.n., glipizide 2.5 mg a.c.b., insulin coverage, Lasix 20 mg daily, Lipitor 80 mg daily, Plavix 75 mg daily, Robitussin DM 5 mL q.6 hours p.r.n., Tylenol p.r.n., Vantin 200 mg twice a day, Zestril 2.5 mg daily. LABORATORY DATA: Shows hemoglobin 13.7, hematocrit 40.9, WBC 11.0, platelet is 304. INR 1.25. Sodium 139, potassium 4.1, chloride 100, bicarbonate 30, BUN 29, creatinine 0.8, glucose is 105, calcium is 8.9. IMPRESSION AND PLAN: Status post respiratory failure, requiring noninvasive ventilation, has oropharyngeal dysphagia, on modified diet, chronic lung disease, severe oropharyngeal dysphagia but patient refused G-tube placement, cardiomyopathy, hypertension, diabetes, bipolar disorder. From pulmonary point of view, keep head at 45 degree. Should be eating while sitting up. Still high risk for respiratory failure secondary to aspiration. Bronchodilator, keep head at 45 degree. Gastric prophylaxis. Order . Thank you, and we will follow with you. Parker Beasley MD
[2017-07-04 07:37] VITALS: BP 114/73; PULSE 75; RESP 18; TEMP 98.2; O2SAT 94
[2017-07-04] MEDS: Insulin Reg-LOW-Coverage SC SCH ×2 (08:42→11:52)
[2017-07-04] MEDS: Cefpodoxime (Vantin) 200 mg Tab PO SCH (09:52)
[2017-07-04] MEDS: Divalproex 250 mg DR (BID formulation) PO SCH ×2 (09:54→14:52)
[2017-07-04] MEDS: guaiFENesin DM 100 mg-10 mg/5 ml UD PO PRN (09:55)
--- NOTE | 2017-07-04 15:39 | PN ---
DATE: 07/04/2017 LOCATION: The patient is in room 563, bed 1. REASON FOR CONSULTATION AND FOLLOWUP: Shortness of breath, altered mental status, large ventral hernia, post respiratory failure requiring non-invasive ventilation secondary to oropharyngeal dysphagia and aspiration. SUBJECTIVE: The patient lying flat in bed without any chest pain. Denies any shortness of breath or palpitations. PHYSICAL EXAMINATION: VITAL SIGNS: Blood pressure 114/73, respirations 18, pulse 75, and temperature 98.2. HEENT: Head is normocephalic. Eyes: Pupils are normal. Conjunctivae normal. Nose and throat is normal. NECK: JVP is low. Carotids equal. THORAX: AP diameter normal. LUNGS: No significant rales. CARDIOVASCULAR: S1 and S2. ABDOMEN: Large ventral hernia. EXTREMITIES: No clubbing, no cyanosis. LABORATORY DATA: WBC 11.0, hemoglobin 13.7, hematocrit 40.9, and platelets 304. Random sugar 116, sodium 139, potassium 4.1, BUN 29, and creatinine 0.8. DIAGNOSES: Status post respiratory failure requiring non-invasive ventilation secondary to oropharyngeal dysphagia and aspiration, hypertension, cardiomyopathy, mild impaired left ventricular systolic function with left ventricular ejection fraction of 42% to 45% on echo 06/26/2017, calcific aortic valve versus mild aortic stenosis, diabetes mellitus, bipolar disorder, hyperlipidemia, chronic kidney disease, and large ventral hernia. PLAN: The patient is on Aricept 10 mg at bedtime, aspirin 81 mg daily, Coreg 3.125 twice a day, furosemide 20 daily, atorvastatin 80 daily, Plavix 75 daily, and lisinopril 2.5 mg daily. We will continue current therapy. We will follow. Parker Mccall MD
--- NOTE | 2017-07-06 05:15 | DS ---
CHIEF COMPLAINT: Weakness, almost passing out. HISTORY OF PRESENT ILLNESS: Mr. Arturo Harris is a 81-year-old male with past medical history of schizophrenia; hypertension; bipolar, noncompliant; anterior abdominal wall hernia; diabetes mellitus came to the Emergency Room of [facility] complaining of generalized weakness; near syncope; shortness of breath. The patient is a poor historian, but I know this patient from [facility], he is my private patient. No fever. No chills. No headache, no dizziness. Readmitted the patient due to chest x-ray, had CAT scan of the head. EEG was done, seen by the neurologist, Dr. Brian; Dr. Mccall, [employer]; GI, Dr. Rickey Lux saw the patient. The patient was having repeated aspiration. We have 3 rapid response on him, put speech therapy evaluation. Plan was to do PEG tube to avoid aspirations, but finally when speech evaluation approved that thick nectar diet , then GI signed off the case. They said that that we should give the patient try of feeding if he will tolerate and the patient was kept in the hospital 48 hours after final speech evaluation and was given food according to the instructions of the speech therapist, but the patient tolerated the food very well, then transferred back to [facility], he is resident there with the instructions, got aspiration precautions. PAST MEDICAL HISTORY: Schizophrenia, bipolar, anterior abdominal wall hernia, surgery was offered by Dr. Parra. The patient has refused as outpatient, hypertension, and diabetes mellitus noncompliant, bipolar. FAMILY HISTORY: Father and mother noncontributory. HABITS: Never smoked. No drugs. No ethanol. ALLERGIES: THE PATIENT IS NOT ALLERGIC WITH ANY MEDICATIONS. REVIEW OF SYSTEMS: The patient was seen and examined on the bedside on 07/04/2017, looking comfortable, alert, back to his baseline. No fever, no chills. Tolerating food very well. No coughing, no shortness of breath. No nausea, vomiting, diarrhea. No hematuria or hematochezia. No swelling of the legs. PHYSICAL EXAMINATION: VITAL SIGNS: Temperature 98.2, pulse 75, blood pressure 114/73, respiratory rate 18. HEENT: Head is normocephalic and atraumatic. Eyes; PERRLA. Extraocular muscles intact. Conjunctivae clear. Nose patent. Mucous membranes moist. NECK: Supple. No carotid bruits. No JVD or thyromegaly. CHEST: Bilateral symmetrical. HEART: S1 and S2 positive. LUNGS: Clear to auscultation. ABDOMEN: Soft. Bowel sounds positive. No organomegaly. EXTREMITIES: No edema. No cyanosis. NEUROLOGIC: The patient is awake and alert. Moving all 4 extremities. No focal deficit. LABORATORY DATA: Whit blood cells 11.0, on admission it was 12.9, hemoglobin 13.7, hematocrit 40.9, platelets 304. Sodium 139, potassium 4.1, BUN 29, creatinine 0.8, glucose 116. ASSESSMENT AND PLAN: Mr. Arturo Harris is a 81-year-old male with leukocytosis, anemia, hyperglycemia. Hepatitis profile is negative. Status post respiratory failure requiring noninvasive ventilation, has oropharyngeal dysphagia, on modified diet; chronic lung disease; persistent refusing gastrostomy tube placement, gastrointestinal was on the case; cardiomyopathy; hypertension; diabetes; bipolar; schizophrenia. Has 3 rapid response because of dysphagia, to get percutaneous endoscopic gastrostomy tube. Talked to the patient, he is refused. He is very noncompliant. Even as outpatient, he refused surgery of anterior abdominal ventral hernia, high risk of respiratory failure due to aspiration, gastric prophylaxis with DVT prophylaxis given, BiPAP given, ordered BiPAP in rehab also. We will follow up. January Estevez MD
== END 2017-07-04 17:20 | DRG 291 ==
LOC: ED 18:42 → ERH 22:27 → 3RSO 06-25 01:44 → 5RNO 07-01 00:28
PROVIDERS: ADMIT Internal Medicine; ATTEND Internal Medicine
PROC: 5A09357 Assistance with Respiratory Ventilation, Less than 24 Consecutive Hours, Continuous Positive Airway Pressure (ICD-10-PCS; principal; 2017-06-28)
DX: I13.0 Hypertensive heart and chronic kidney disease with heart failure and stage 1 through stage 4 chronic kidney disease, or unspecified chronic kidney disease (principal); I50.23 Acute on chronic systolic (congestive) heart failure; J96.01 Acute respiratory failure with hypoxia; G93.40 Encephalopathy, unspecified; J18.9 Pneumonia, unspecified organism; E86.0 Dehydration; E11.22 Type 2 diabetes mellitus with diabetic chronic kidney disease; E11.65 Type 2 diabetes mellitus with hyperglycemia; R13.12 Dysphagia, oropharyngeal phase; F03.90 Unspecified dementia, unspecified severity, without behavioral disturbance, psychotic disturbance, mood disturbance, and anxiety; D64.9 Anemia, unspecified; N18.9 Chronic kidney disease, unspecified; E83.51 Hypocalcemia; I08.2 Rheumatic disorders of both aortic and tricuspid valves; F20.9 Schizophrenia, unspecified; K43.9 Ventral hernia without obstruction or gangrene; F31.9 Bipolar disorder, unspecified; I25.10 Atherosclerotic heart disease of native coronary artery without angina pectoris; F41.9 Anxiety disorder, unspecified; R32 Unspecified urinary incontinence; E78.00 Pure hypercholesterolemia, unspecified; J01.10 Acute frontal sinusitis, unspecified; J01.20 Acute ethmoidal sinusitis, unspecified; R55 Syncope and collapse; Z78.1 Physical restraint status; Z79.82 Long term (current) use of aspirin; Z79.84 Long term (current) use of oral hypoglycemic drugs; Z91.14 Patient's other noncompliance with medication regimen

== ENCOUNTER 2018-03-22 09:34 | Inpatient (IN) | payer MEDICARE, MEDICAID ==
[2018-03-22 09:58] VITALS: BMI 25.1
[2018-03-22] MEDS ORDERED: Albuterol 0.083% Inhal Sol (2.5 mg/3 mL) UD INH STA (10:18)
[2018-03-22 10:22] LABS: VENOUS BLOOD GAS BASE EXCESS -1.5 mmol/L (0.0-2.0); VENOUS BLOOD GAS PO2 77 mm/Hg (30-55); VENOUS BLOOD PH 7.35 (7.32-7.43)
--- NOTE | 2018-03-22 10:23 | ED PDOC ---
Arrival/HPI - General Chief Complaint: Altered Mental Status Time Seen by Provider: 03/22/18 09:38 Historian: EMS - History of Present Illness Narrative History of Present Illness (Text): 03/22/18 09:40 82 M, whose past medical history includes hypertension, dementia, CVA, bipolar disorder, ventricular hernia, and diabetes who was brought in to the emergency department by ALS for SOB and AMS from residential, s/p falling this morning. Limited HPI due to patient's non-verbal status. Time/Duration: Prior to Arrival (shortness of breath and AMS since falling this morning) Symptom Onset: Sudden Symptom Course: Unchanged Activities at Onset: Light Past Medical History - Provider Review Nursing Documentation Reviewed: Yes - Infectious Disease Hx of Infectious Diseases: None - Tetanus Immunization Tetanus Immunization: Unknown - Cardiac Hx Hypertension: Yes - Pulmonary Hx Tuberculosis: No - Neurological Hx Neurological Disorder: Yes Hx Dementia: Yes - Endocrine/Metabolic Hx Diabetes Mellitus Type 2: Yes - Hematological/Oncological Hx Cancer: No - Musculoskeletal/Rheumatological Hx Falls: No - Genitourinary/Gynecological Hx Sexually Transmitted Diseases: No - Psychiatric Hx Psychophysiologic Disorder: Yes Hx Anxiety: Yes Hx Bipolar Disorder: Yes Hx Substance Use: No - Past Surgical History Past Surgical History: Unable to Obtain - Anesthesia Hx Anesthesia: No Hx Anesthesia Reactions: No Hx Malignant Hyperthermia: No - Suicidal Assessment Feels Threatened In Home Enviroment: No Family/Social History - Physician Review Nursing Documentation Reviewed: Yes Family/Social History: No Known Family HX Smoking Status: Never Smoked Hx Alcohol Use: No Hx Substance Use: No Hx Substance Use Treatment: No Allergies/Home Meds Allergies/Adverse Reactions: Allergies No Known Allergies Allergy (Verified 10/12/13 10:33) Home Medications: Home Meds Medication Instructions Recorded Confirmed Atorvastatin 80 mg PO 1800 06/25/17 03/22/18 RX: Aspirin [Aspirin Chewable] 81 mg PO DAILY 06/25/17 03/22/18 RX: Carvedilol [Coreg] 3.125 mg PO BID 06/25/17 03/22/18 RX: Clopidogrel [Plavix] 75 mg PO DAILY 06/25/17 03/22/18 RX: Divalproex [Depakote DR] 750 mg PO TID 06/25/17 03/22/18 RX: Donepezil [Aricept] 10 mg PO 1800 06/25/17 03/22/18 RX: Furosemide [Lasix] 40 mg PO DAILY 06/25/17 03/22/18 RX: GlipiZIDE [Glucotrol] 2.5 mg PO DAILY 06/25/17 03/22/18 RX: Lisinopril [Zestril] 2.5 mg PO DAILY 06/25/17 03/22/18 RX: Ranitidine HCl [Zantac] 150 mg PO DAILY 06/25/17 03/22/18 RX: Guaifenesin/Dextromethorphan 5 ml PO Q6 PRN 03/22/18 03/22/18 [Robafen Dm Cgh-Chest Rj Syrp] Review of Systems - Physician Review All systems were reviewed & negative as marked: Yes (All other systems negative except that noted in the HPI.) Physical Exam - Physical Exam Narrative Physical Exam (Text): 03/22/18 09:40 Gen: VS reviewed, alert, well developed, dry mucous membranes, nontoxic, mild distress. ENT: normal pharynx Eye: EOMI, PERRL Neck: no JVD, supple, no adenopathy CV: regular rate, regular rhythm, no rubs, no murmer, no gallops, S1, S2, pulses equal and strong Pulm: Course breath sounds bilaterally. No wheezes. Abd: Soft and nondistended. Ext: Edema bilateral lower extremities up to mid lower legs. Skin: good color, no rash, no cyanosis Psych: Limited due to patient's non-verbal status. Neuro: Limited due to patient's non-verbal status. Vital Signs Reviewed: Yes Vital Signs Temp Pulse Resp BP Pulse Ox 03/22/18 09:34 99 F 80 18 135/67 88 L Temperature: Afebrile Blood Pressure: Normal Pulse: Regular Respiratory Rate: Normal Appearance: Positive for: Non-Toxic Pain Distress: Mild Mental Status: Positive for: other (unable to assess mental status due to patient's non-verbal status. ) Medical Decision Making ED Course and Treatment: 03/22/18 09:40 Impression: Differential Diagnosis included but are not limited to: Plan: -- Labs -- EKG -- Magnesium -- TSH -- Troponin I -- CBC (with differential) -- Partial Thromboplastin -- Prothrombin Time -- X-ray of chest -- CT of cervical spine w/o contrast -- Angiography CT -- CT of head w/o contrast -- Albuterol -- Blood culture -- Culture urine -- Urinalysis -- Reassess and disposition Prior Visits: Notes and results from previous visits were reviewed. Patient was last seen in the emergency department on 06/24/17 complaining of generalized weakness, near syncopal, and shortness of breath. Patient was hospitalized in stable condition with diagnosis of CHF, near syncope and bipolar disorder. Progress Notes: - RAD Interpretation Narrative RAD Interpretations (Text): Chest X-ray reviewed by radiologist, shows: Dictator : Billy Herndon MD Report Date : 03/22/2018 11:20:01 FINDINGS: LUNGS: Calcified granulomas in the lung apices. The lungs are otherwise clear PLEURA: Minimal blunting of the left costophrenic angle CARDIOVASCULAR: Normal. OSSEOUS STRUCTURES: No significant abnormalities. VISUALIZED UPPER ABDOMEN: Normal. OTHER FINDINGS: None. IMPRESSION: No active disease. ------ Angiography CT reviewed by radiologist, shows: Dictator : Billy Herndon MD Report Date : 03/22/2018 13:51:58 FINDINGS: PULMONARY ARTERIES: Unremarkable. No pulmonary embolism. AORTA: No acute findings. No thoracic aortic aneurysm. LUNGS: There is a patchy linear infiltrate at the left lung base. There is volume loss in the left lung. There is also diminished size the pulmonary vessels in the left lower lobe. This could be congenital in origin or secondary to previous surgery. There are no clips or suture lines seen. PLEURAL SPACES: No effusion HEART: Unremarkable. No cardiomegaly. No significant pericardial effusion. LYMPH NODES: No lymphadenopathy. BONES, CHEST WALL: Unremarkable. No fracture or destructive lesion OTHER FINDINGS: Unremarkable. IMPRESSION: No evidence of pulmonary embolus. Patchy linear infiltrate at left lung base which may represent scarring. Volume loss in the left lung CT of cervical spine reviewed by radiologist, shows: Dictator : Billy Herndon MD Report Date : 03/22/2018 14:01:17 FINDINGS: VERTEBRAE: No fracture. Normal alignment. No destructive bony lesion. DISCS/SPINAL CANAL/NEURAL FORAMINA: There is foraminal stenosis on the left especially at C5-6. there is disc space narrowing at multiple levels PARASPINAL SOFT TISSUES: Unremarkable. OTHER FINDINGS: None. IMPRESSION: No acute findings CT of head reviewed by radiologist, shows: Dictator : Billy Herndon MD Report Date : 03/22/2018 13:45:29 FINDINGS: HEMORRHAGE: No intracranial hemorrhage. BRAIN: No mass effect or edema. Moderate to severe atrophy. Chronic microvascular changes. No acute intracranial findings VENTRICLES: Unremarkable. No hydrocephalus. CALVARIUM: Unremarkable. PARANASAL SINUSES: Unremarkable as visualized. No significant inflammatory changes. MASTOID AIR CELLS: Unremarkable as visualized. No inflammatory changes. OTHER FINDINGS: None. IMPRESSION: Moderate to severe atrophy. Chronic microvascular changes. No acute intracranial findings Radiology Orders: 03/22/18 09:58 CHEST PORTABLE [RAD] Stat 03/22/18 10:22 CERVICAL SPINE W/O CONTRAST [CT] Stat CHEST,ABD,PEL W/IV CONT ONLY [CT] Stat HEAD W/O CONTRAST [CT] Stat Size Mixer: Radiologist - EKG Interpretation EKG Interpretation (Text): 03/22/18 11:38 0946: nsr at 88 bpm, nml qrs, nml axis, nonspecific lateral t wave abn Interpreted by ED Physician: Yes - Medication Orders Current Medication Orders: Discontinued Medications Albuterol Sulfate (Albuterol 0.083% Inhal Libby (2.5 Mg/3 Ml) Ud) 2.5 mg INH STAT STA Stop: 03/22/18 10:19 - Scribe Statement The provider has reviewed the documentation as recorded by the Scribe Lexie Crespo All medical record entries made by the Scribe were at my direction and personally dictated by me. I have reviewed the chart and agree that the record accurately reflects my personal performance of the history, physical exam, medical decision making, and the department course for this patient. I have also personally directed, reviewed, and agree with the discharge instructions and disposition. Disposition/Present on Arrival - Present on Arrival Any Indicators Present on Arrival: No History of DVT/PE: No History of Uncontrolled Diabetes: No Urinary Catheter: No History of Decub. Ulcer: No History Surgical Site Infection Following: None - Disposition Have Diagnosis and Disposition been Completed?: Yes Diagnosis: Altered mental state Disposition: HOSPITALIZED Disposition Time: 05:13 Condition: STABLE
[2018-03-22 10:26] LABS: BASO # 0.03 K/mm3 (0.0-2.0); BASO % 0.1 % (0.0-3.0); GRAN # 14.67 (1.4-6.5); GRAN % 64.1 % (50.0-68.0); HEMOGLOBIN 15.6 g/dL (14.0-18.0); LYMPH # 2.9 (1.2-3.4); LYMPH % 12.7 % (22.0-35.0); MEAN CELL VOLUME 104.1 fl (80.0-105.0); MEAN CORPUSCULAR HEMOGLOBIN 35.5 pg (25.0-35.0); MEAN CORPUSCULAR HGB CONC 34.1 g/dl (31.0-37.0); MEAN PLATELET VOLUME 10.8 fl (7.0-11.0); MONO # 5.3 (0.1-0.6); MONO % 23.1 % (1.0-6.0); PLATELET COUNT 203 10^3/uL (120.0-450.0); RBC 4.39 10^6/uL (3.5-6.1); RED CELL DISTRIBUTION WIDTH 13.9 % (11.5-14.5); WHITE BLOOD COUNT 22.9 10^3/ul (4.5-11.0)
[2018-03-22 10:31] LABS: INR 1.24; PROTHROMBIN TIME 14.3 SECONDS (9.4-12.5)
[2018-03-22 10:32] LABS: ALB/GLOB RATIO 0.9 (1.1-1.8); ALBUMIN 3.5 g/dL (3.0-4.8); CALCIUM 8.9 mg/dL (8.4-10.5)
[2018-03-22 10:52] LABS: BAND 4 % (0-2); LYMPHOCYTE 13 % (22.0-35.0); MONOCYTE 23 % (1.0-6.0); NEUTROPHIL 60 % (50.0-70.0)
[2018-03-22 10:53] LABS: PLATELET ESTIMATE NORMAL (NORMAL)
[2018-03-22 11:17] LABS: CK MB% 0.7 % (2.5-3.0); CK-MB 7.4 ng/mL (0.0-3.6); TROPONIN I 0.82 ng/mL
--- NOTE | 2018-03-22 11:23 | RAD ---
Date of service: 03/22/2018 HISTORY: sob COMPARISON: 06/29/2017 FINDINGS: LUNGS: Calcified granulomas in the lung apices. The lungs are otherwise clear PLEURA: Minimal blunting of the left costophrenic angle CARDIOVASCULAR: Normal. OSSEOUS STRUCTURES: No significant abnormalities. VISUALIZED UPPER ABDOMEN: Normal. OTHER FINDINGS: None. IMPRESSION: No active disease.
[2018-03-22] MEDS ORDERED: Piperacillin/Tazobact 3.375 gm 100 ML IVPB STA (11:26)
[2018-03-22 11:35] LABS: ARTERIAL BLOOD GAS HCO3 24.2 mmol/L (21-28); ARTERIAL BLOOD GAS HEMOGLOBIN 15.5 g/dL (11.7-17.4); ARTERIAL BLOOD GAS O2 CAPACITY 21.1 mL/dl (16-24); ARTERIAL BLOOD GAS O2 CONTENT 19.3 ML/dl (15-23); ARTERIAL BLOOD GAS O2 SAT 91.4 % (95-98); ARTERIAL BLOOD GAS PCO2 39 mm/Hg (35-45); ARTERIAL BLOOD GAS TCO2 25.4 mmol.L (22-28)
[2018-03-22 12:55] LABS: URINE APPEARANCE CLOUDY (CLEAR); URINE BILIRUBIN SMALL (NEGATIVE); URINE BLOOD LARGE (NEGATIVE); URINE COLOR YELLOW (YELLOW); URINE GLUCOSE (UA) NEGATIVE (NEGATIVE); URINE LEUKOCYTE ESTERASE NEGATIVE Leu/uL (NEGATIVE); URINE PROTEIN 100 mg/dL (<30 mg/dL)
[2018-03-22 13:00] LABS: URINE BACTERIA MANY (NEG); URINE EPITHELIAL CELLS 0 - 2 /hpf (0-5); URINE RBC TNTC /hpf (0-2)
[2018-03-22 13:01] LABS: URINE AMORPHOUS SEDIMENT FEW; URINE FINE GRANULAR CAST 0 - 2 /hpf (0-2); URINE HYALINE CAST 0 - 2 /hpf
--- NOTE | 2018-03-22 13:48 | CT ---
Date of service: 03/22/2018 PROCEDURE: CT HEAD WITHOUT CONTRAST. HISTORY: fall COMPARISON: None available. TECHNIQUE: Axial computed tomography images were obtained through the head/brain without intravenous contrast. Radiation dose: Total exam DLP = 1193 mGy-cm. This CT exam was performed using one or more of the following dose reduction techniques: Automated exposure control, adjustment of the mA and/or kV according to patient size, and/or use of iterative reconstruction technique. FINDINGS: HEMORRHAGE: No intracranial hemorrhage. BRAIN: No mass effect or edema. Moderate to severe atrophy. Chronic microvascular changes. No acute intracranial findings VENTRICLES: Unremarkable. No hydrocephalus. CALVARIUM: Unremarkable. PARANASAL SINUSES: Unremarkable as visualized. No significant inflammatory changes. MASTOID AIR CELLS: Unremarkable as visualized. No inflammatory changes. OTHER FINDINGS: None. IMPRESSION: Moderate to severe atrophy. Chronic microvascular changes. No acute intracranial findings
--- NOTE | 2018-03-22 13:55 | CT ---
Date of service: 03/22/2018 PROCEDURE: CT Chest with contrast (Pulmonary Angiogram) HISTORY: pulmonary embolism COMPARISON: None available. TECHNIQUE: Axial computed tomography images were obtained of the chest in the pulmonary arterial phase of enhancement. Coronal and sagittal reformatted images were created and reviewed. Intravenous contrast dose: 150 cc of Omni 350 Radiation dose: Total exam DLP = 514 mGy-cm. This CT exam was performed using one or more of the following dose reduction techniques: Automated exposure control, adjustment of the mA and/or kV according to patient size, and/or use of iterative reconstruction technique. FINDINGS: PULMONARY ARTERIES: Unremarkable. No pulmonary embolism. AORTA: No acute findings. No thoracic aortic aneurysm. LUNGS: There is a patchy linear infiltrate at the left lung base. There is volume loss in the left lung. There is also diminished size the pulmonary vessels in the left lower lobe. This could be congenital in origin or secondary to previous surgery. There are no clips or suture lines seen. PLEURAL SPACES: No effusion HEART: Unremarkable. No cardiomegaly. No significant pericardial effusion. LYMPH NODES: No lymphadenopathy. BONES, CHEST WALL: Unremarkable. No fracture or destructive lesion OTHER FINDINGS: Unremarkable. IMPRESSION: No evidence of pulmonary embolus. Patchy linear infiltrate at left lung base which may represent scarring. Volume loss in the left lung
--- NOTE | 2018-03-22 14:06 | CT ---
Date of service: 03/22/2018 PROCEDURE: CT Cervical Spine without contrast HISTORY: fall COMPARISON: None available. TECHNIQUE: Axial computed tomography images were obtained of the cervical spine without the use of intravenous contrast. Coronal and sagittal reformatted images were created and reviewed. Radiation dose: Total exam DLP = 615 mGy-cm. This CT exam was performed using one or more of the following dose reduction techniques: Automated exposure control, adjustment of the mA and/or kV according to patient size, and/or use of iterative reconstruction technique. FINDINGS: VERTEBRAE: No fracture. Normal alignment. No destructive bony lesion. DISCS/SPINAL CANAL/NEURAL FORAMINA: There is foraminal stenosis on the left especially at C5-6. there is disc space narrowing at multiple levels PARASPINAL SOFT TISSUES: Unremarkable. OTHER FINDINGS: None. IMPRESSION: No acute findings
[2018-03-22 14:40] LABS: VENOUS BLOOD GAS BASE EXCESS -1.1 mmol/L (0.0-2.0); VENOUS BLOOD GAS PO2 50 mm/Hg (30-55)
--- NOTE | 2018-03-22 15:00 | CARD ---
APPROVED REPORT Date of service: 03/22/2018 EKG Measurement Heart [id number] <Conclusion> Normal sinus rhythm Septal infarct, age undetermined ST & T wave abnormality, consider anterolateral ischemia Abnormal ECG
[2018-03-22] MEDS ORDERED: Influenza Vaccine 60 mcg/0.5 mL SYR (4YR UP) IM ONE (21:17)
[2018-03-22] MEDS ORDERED: Pneumococcal 23-Valent Vaccine IM ONE (21:17)
[2018-03-23 00:50] LABS: CK MB% 0.7 % (2.5-3.0); CK-MB 8.7 ng/mL (0.0-3.6); TROPONIN I 0.3 ng/mL
[2018-03-23] MEDS: Albuterol-Ipratrop 3 mg / 0.5 (3 ml) UD IH SCH ×4 (01:16→19:50)
--- NOTE | 2018-03-23 02:24 | CP.PCM.PCO ---
Physician Communication Note - Physician Communication Note Physician Communication Note: Reviewed chart and NH records. Patient on Rocephin IV. Leukocytosis.
[2018-03-23] MEDS: Insulin Reg-LOW-Coverage SC SCH ×3 (08:35→17:54)
--- NOTE | 2018-03-23 10:24 | HP ---
date 03/22/18 CHIEF COMPLAINT: Altered mental status. HISTORY OF PRESENT ILLNESS: Mr. Steven Morris is 82 years, my private patient from [facility], came to the [facility] Emergency Room with past medical history of hypertension, dementia, CVA, bipolar disorder, ventral hernia, diabetes mellitus, actually he was brought to Emergency Room by [facility] for shortness of breath, altered mental status and on questioning from the intermediate, I came to know that the patient was found on the floor near the bed unresponsive this morning. Nobody knows the detail what happened, either he lost consciousness or he fell, nobody knows. Even I asked the nursing staff. Even, they do not have that information. The patient is a very poor historian. PAST MEDICAL HISTORY: Hypertension, dementia, diabetes mellitus type 2, psychological disorder, anxiety, bipolar. FAMILY HISTORY: Father and mother, noncontributory. HABITS: Never smoked. No drugs. No ethanol. ALLERGIES: THE PATIENT IS NOT ALLERGIC WITH ANY MEDICATIONS. HOME MEDICATIONS: Xanax, aspirin, atorvastatin, Coreg, Plavix, Depakote, Aricept, Lasix, Glucotrol, Zestril, Zantac. REVIEW OF SYSTEMS: I saw the patient in the emergency room. That moment, he just came back from CAT scan of the head because of anxiety. The patient was given Ativan. The patient was not able to give me any review of systems, but looks like he is comfortable. No fever, no chills, no vomiting. PHYSICAL EXAMINATION VITAL SIGNS: Temperature 99, pulse 80, respiratory rate 18, blood pressure 135/67, pulse oximetry 88. HEENT: Head normocephalic, atraumatic. Eyes; PERRLA. Extraocular muscles intact. Conjunctivae clear. Nose patent. Mucous membrane moist. NECK: Supple. No carotid bruit. No JVD or thyromegaly. CHEST Bilaterally symmetrical. HEART: S1 and S2 positive. LUNGS: Clear to auscultation. ABDOMEN: Soft. Bowel sounds positive. No organomegaly. EXTREMITIES: No edema. No cyanosis. NEUROLOGICAL: The patient is sleepy, arousable, opens eyes on command, but not able to give me complete neurological examination. EXTREMITIES: No edema, no cyanosis. LABORATORY DATA: White blood cells 22.9, hemoglobin 15.6, hematocrit 45.7, platelets 203. Sodium 142, potassium 4.3, chloride 108, BUN 35, creatinine 1.4, glucose 144, AST 67, troponin 0.82. ASSESSMENT AND PLAN: Mr. Steven Morris is 82-year-old male with leukocytosis, hyperchloremia, hyperglycemia, abnormal liver function test. Troponin is positive. We will do series of troponin. Proteinuria, glucosuria, ketonuria, hematuria, rule out urinary tract infection. Angio CT is done. No evidence of pulmonary embolism. Patchy linear infiltrates on the left lung base, which will present scarring, volume loss of the left lung. CAT scan of the head done, unremarkable as visualized, no inflammatory changes, [id number] atrophic chronic microvascular changes, no adequate intracranial findings. Cervical spine CT is also done, no acute findings. We admitted the patient. Consult is called with Dr. Brian for altered mental status, Dr. Broussard for rule out sepsis, Dr. Beasley for rule out pneumonia. Gastrointestinal and deep venous thrombosis prophylaxes given. We started medications. We will follow up. Jaunary Estevez MD [facility]
[2018-03-23] MEDS: Divalproex 250 mg DR (BID formulation) PO SCH ×3 (10:37→17:49)
[2018-03-23] MEDS: cefTRIAXone 1 gm 1 GM/100 ML BAG IVPB SCH (10:41)
--- NOTE | 2018-03-23 16:05 | CP.PCM.CON ---
History of Present Illness - History of Present Illness History of Present Illness: Infectious Disease Consultation: March 23, 2018 82 yo male sent from [facility] for AMS and after being found on the floor by staff at 8:10 AM 03/22/2018. The patient was reported as awake and alert by longterm staff. Unclear how the patient was found on the floor as the [place] nursing report a few minutes prior showed the patient resting peacefully in bed. prison reported contusions of right axillary area and abrasion of the left elbow. The patient is alert but confused at this time. He is on a ventimask saturating to 95%. Nursing notes here state that the patient is unsteady when attempting to ambulate. The patient did arrive to [facility] [place] with a WBC of 22.9 on admission. He has been afebrile. Unclear what the patient's baseline mental status is to me. PMHx: taken from chart. HTN, DM Type 2, psychological disorder - Schizophrenia?, bipolar disorder, anxiety, and abdominal wall/ventral hernia, hyperlipidemia, urinary incontinence. PSHx: Unknown Allergies: NKDA Social Hx: Custodial patient currently. No tobacco, EtOH, or illicit drug use history to my knowledge. Active Medications Acetaminophen (Tylenol 325mg Tab) 650 mg PO Q4H PRN PRN Reason: Temperature Albuterol/Ipratropium (Duoneb 3 Mg/0.5 Mg (3 Ml) Ud) 3 ml IH [id number] [facility] Last Admin: 03/23/18 15:54 Dose: Not Given Aspirin (Aspirin Chewable) 81 mg PO DAILY [facility] Last Admin: 03/23/18 10:36 Dose: 81 mg Atorvastatin Calcium (Lipitor) 80 mg PO DIN [facility] Carvedilol (Coreg) 3.125 mg PO BID [facility] Last Admin: 03/23/18 10:37 Dose: 3.125 mg Clopidogrel Bisulfate (Plavix) 75 mg PO DAILY [facility] Last Admin: 03/23/18 10:36 Dose: 75 mg Divalproex Sodium (Depakote Dr (*Bid*)) 750 mg PO TID [facility] Last Admin: 03/23/18 14:08 Dose: 750 mg Donepezil HCl (Aricept) 10 mg PO 1800 [facility] Famotidine (Pepcid) 20 mg PO HS [facility] Furosemide (Lasix) 40 mg PO DAILY [facility] Last Admin: 03/23/18 10:37 Dose: 40 mg Glipizide (Glucotrol) 2.5 mg PO DAILY [facility] Last Admin: 03/23/18 10:00 Dose: 2.5 mg Ceftriaxone Sodium (Rocephin 1 Gram Ivpb) 1 gm in 100 mls @ 100 mls/hr IVPB CINDI LY [facility]; Protocol Last Admin: 03/23/18 10:41 Dose: 100 mls/hr Insulin Human Regular (Humulin R Low) 0 units SC ACHS [facility]; Protocol Last Admin: 03/23/18 14:09 Dose: Not Given Lisinopril (Zestril) 2.5 mg PO DAILY [facility] Last Admin: 03/23/18 10:36 Dose: 2.5 mg Pantoprazole Sodium (Protonix Ec Tab) 40 mg PO ACB [facility] Family Hx: Unable to obtain from patient ROS: Unable to obtain from the patient. Past Patient History - Infectious Disease Hx of Infectious Diseases: None - Tetanus Immunizations Tetanus Immunization: Unknown - Past Social History Smoking Status: Never Smoked - CARDIAC Hx Cardiac Disorders: Yes (cp) Hx Congestive Heart Failure: Yes Hx Hypertension: Yes Hx Peripheral Edema: Yes (+2 pitting edema ble/scrotal edema) - PULMONARY Hx Respiratory Disorders: Yes (uses bipap in longterm at ) Hx Tuberculosis: No - NEUROLOGICAL Hx Neurological Disorder: Yes Hx Dementia: Yes - HEENT Hx HEENT Problems: Yes - RENAL Hx Chronic Kidney Disease: No - ENDOCRINE/METABOLIC Hx Endocrine Disorders: Yes Hx Diabetes Mellitus Type 2: Yes - HEMATOLOGICAL/ONCOLOGICAL Hx Cancer: No - INTEGUMENTARY Hx Dermatological Problems: Yes Other/Comment: multiple light red deutsch to right shoulder front,back and upper b ack, large hematoma to right mid back,, redness to right lower back, scrotum red and swollen, buttocks reddened no openings , round soft pink grown to right buttocks, b/l feet dry thick toenails, partial toenail r great toe, multiple skin discolorations rle - MUSCULOSKELETAL/RHEUMATOLOGICAL Hx Musculoskeletal Disorders: Yes Hx Falls: Yes (fell this am) Hx Unsteady Gait: Yes - GASTROINTESTINAL Hx Gastrointestinal Disorders: Yes Hx Gastroesophageal Reflux: Yes Other/Comment: ventricular hernia, buldging abd - GENITOURINARY/GYNECOLOGICAL Hx Sexually Transmitted Disorders: No - PSYCHIATRIC Hx Psychophysiologic Disorder: Yes Hx Anxiety: Yes Hx Bipolar Disorder: Yes Hx Depression: Yes Hx Psychosis: Yes - ANESTHESIA Hx Anesthesia: No Hx Anesthesia Reactions: No Hx Malignant Hyperthermia: No Meds Allergies/Adverse Reactions: Allergies Allergy/AdvReac Type Severity Reaction Status Date / Time No Known Allergies Allergy Verified 10/12/13 10:33 - Medications Medications: Current Medications Acetaminophen (Tylenol 325mg Tab) 650 mg PO Q4H PRN PRN Reason: Temperature Albuterol/Ipratropium (Duoneb 3 Mg/0.5 Mg (3 Ml) Ud) 3 ml IH [id number] [facility] Last Admin: 03/23/18 08:53 Dose: 3 ml Aspirin (Aspirin Chewable) 81 mg PO DAILY [facility] Last Admin: 03/23/18 10:36 Dose: 81 mg Atorvastatin Calcium (Lipitor) 80 mg PO DIN [facility] Carvedilol (Coreg) 3.125 mg PO BID [facility] Last Admin: 03/23/18 10:37 Dose: 3.125 mg Clopidogrel Bisulfate (Plavix) 75 mg PO DAILY [facility] Last Admin: 03/23/18 10:36 Dose: 75 mg Divalproex Sodium (Depakote Dr (*Bid*)) 750 mg PO TID [facility] Last Admin: 03/23/18 14:08 Dose: 750 mg Donepezil HCl (Aricept) 10 mg PO 1800 [facility] Famotidine (Pepcid) 20 mg PO HS [facility] Furosemide (Lasix) 40 mg PO DAILY [facility] Last Admin: 03/23/18 10:37 Dose: 40 mg Glipizide (Glucotrol) 2.5 mg PO DAILY [facility] Last Admin: 03/23/18 10:00 Dose: 2.5 mg Ceftriaxone Sodium (Rocephin 1 Gram Ivpb) 1 gm in 100 mls @ 100 mls/hr IVPB DAILY [facility]; Protocol Last Admin: 03/23/18 10:41 Dose: 100 mls/hr Insulin Human Regular (Humulin R Low) 0 units SC ACHS [facility]; Protocol Last Admin: 03/23/18 14:09 Dose: Not Given Lisinopril (Zestril) 2.5 mg PO DAILY [facility] Last Admin: 03/23/18 10:36 Dose: 2.5 mg Pantoprazole Sodium (Protonix Ec Tab) 40 mg PO ACB [facility] Physical Exam - Constitutional Appears: Non-toxic, No Acute Distress, Confused, Chronically Ill - Head Exam Head Exam: ATRAUMATIC, NORMOCEPHALIC Additional comments: poor dentition with missing teeth. - Eye Exam Eye Exam: EOMI, PERRL Pupil Exam: NORMAL ACCOMODATION, PERRL - ENT Exam ENT Exam: Mucous Membranes Moist, Normal External Ear Exam, TM's Normal Bilaterally - Neck Exam Neck exam: Positive for: Full Rom, Normal Inspection - Respiratory Exam Respiratory Exam: Clear to Auscultation Bilateral, NORMAL BREATHING PATTERN. absent: Rales, Rhonchi, Wheezes - Cardiovascular Exam Cardiovascular Exam: REGULAR RHYTHM, RRR, +S1, +S2 - GI/Abdominal Exam GI & Abdominal Exam: Normal Bowel Sounds, Soft. absent: Distended, Tenderness - Extremities Exam Extremities exam: Negative for: joint swelling, pedal edema Additional comments: abrasion to the left elbow, and mild swelling and erythema to the right axillary area. - Neurological Exam Neurological exam: Alert, CN II-XII Intact Additional comments: AAO x 1-2, can follow some commands. - Psychiatric Exam Psychiatric exam: Normal Affect, Normal Mood - Skin Additional comments: As above Results - Vital Signs Recent Vital Signs: Last Vital Signs Temp 98.4 F 03/23/18 12:00 Pulse 76 03/23/18 12:00 Resp 18 03/23/18 12:00 BP 94/58 L 03/23/18 12:00 Pulse Ox 96 03/22/18 18:45 - Labs Result Diagrams: 03/22/18 10:00 03/22/18 10:00 Labs: Laboratory Results - last 24 hr 03/22/18 03/22/18 03/23/18 18:18 23:45 06:06 POC Glucose (mg/dL) 136 H 147 H Lactate Dehydrogenase 554 Total Creatine Kinase 1334 H CK-MB (CK-2) 8.7 H CK-MB (CK-2) % 0.7 L Troponin I 0.30 H* D 03/23/18 03/23/18 07:30 11:41 POC Glucose (mg/dL) 128 H 172 H Lactate Dehydrogenase Total Creatine Kinase CK-MB (CK-2) CK-MB (CK-2) % Troponin I Assessment & Plan - Assessment and Plan (Free Text) Assessment: 82 yo male found on the floor of the longterm on 01/20/2018 in the AM found to have leukocytosis up to 22.9. No other specific findings. Mild abrasion to the left elbow and mild contusion of hte right axillary area. Afebrile in hospital. The patient appears awake and alert. Started on Rocephin for antibiotic therapy at this time. Supportive care. Urine culture appears to be negative. Blood cultures pending. Will maintain on Rocephin for now. Monitor leukocytosis, repeat WBC in AM. On the whole, the patient appears comfortable at this time. Thank you for allowing me to participate in the care of the patient, we will follow with you.
--- NOTE | 2018-03-23 17:44 | CON ---
DATE: 03/23/2018 CHIEF COMPLAINT: Altered mental status. HISTORY OF PRESENT ILLNESS: This is an 82-year-old man with history of hypertension, type 2 diabetes mellitus, bipolar, schizophrenia, anxiety, abdominal wall ventral hernia, hyperlipidemia, urinary incontinence, who came from [facility], was found on the floor by staff. Unaware of how he was found on the floor. [facility] showed up prior and the patient was resting peacefully in bed after. He is alert, but confused at times. Does have cognitive impairment at baseline. He was evaluated at [facility], found to have leukocytosis of 29.9 on admission and is afebrile and has a transient confusional state. He had low systolic and diastolic blood pressures, possibly consistent with underlying possible sepsis. PAST MEDICAL HISTORY: As above. SOCIAL HISTORY: No illicit drug use, smoking or EtOH abuse. REVIEW OF SYSTEMS: Fourteen-point review of systems is negative except as per the HPI. ALLERGIES: NO KNOWN DRUG ALLERGIES. MEDICATIONS: Reviewed by nurses's reconciliation sheet. LABORATORY DATA: WBC 29.9, hemoglobin of 15.6, hematocrit of 45.7, platelet count of 203. Has elevated troponins. Sodium is 142, potassium 4.2, chloride of 108, carbon dioxide 23, BUN of 35, creatinine 1.4, random glucose of 136. PHYSICAL EXAMINATION: VITAL SIGNS: Temperature of 98.4, pulse rate of 76, blood pressure 94/58, respiratory rate of 18. GENERAL: The patient is sitting up in bed, in no acute distress. HEENT: Atraumatic, normocephalic. PERRLA. Extraocular muscles intact. NECK: Supple. No JVD, no adenopathy noted. LUNGS: Clear to auscultation. No adventitious sounds. HEART: S1, S2. Normal rate and rhythm. No murmurs, rubs or gallops. ABDOMEN: Soft, nontender and nondistended. Bowel sounds are present. EXTREMITIES: No clubbing. No cyanosis. Peripheral pulses 2+ felt bilaterally. NEUROLOGIC: The patient is alert and oriented to person and place, not much to month or year. Recall after 5 minutes is 0/2. Poor attention span. Slow thought process. Flat affect. Cranial nerves II through XII intact. No aphasia noted. Motor exam: Slight increased tone throughout. Moves all extremities equally. No pronator drift seen. He is very deconditioned. Sensory exam: Decreased light touch and pinprick up to the calves bilaterally. Decreased vibration of the toes. Has evidence of peripheral neuropathy on examination. Gait is deferred for now. Coordination: [id number] is intact. No dysmetria noted. ASSESSMENT AND PLAN: This is an 82-year-old man with history of hypertension, type 2 diabetes mellitus, bipolar disorder, anxiety , hyperlipidemia or incontinence, hypertension, who [facility], was found on the floor. Found to be confused as well as found to have leukocytosis of 29.9 on admission and low systolic and diastolic blood pressures indicating possible underlying sepsis. His transient altered mental status is likely secondary to toxic metabolic encephalopathy superimposed underlying sever cognitive impairment. Unable to tell what his actual baseline is. He is deconditioned. Also has evidence of peripheral neuropathy, on examination. At this time, recommend, 1. ID recommendations in regards to the leukocytosis. Get blood cultures and urine cultures. 2. Keep his systolic blood pressure between 130s-140s and diastolic 70-80s and avoid hypotensive episode, which can worsen his mental status. 3. Delirium precautions. 4. Monitor electrolytes and correct accordingly and continue on current present medical management. Thank you for this consult. Don Brian MD
[2018-03-24] MEDS: Insulin Reg-LOW-Coverage SC SCH ×5 (00:21→22:17)
[2018-03-24] MEDS: Albuterol-Ipratrop 3 mg / 0.5 (3 ml) UD IH SCH ×4 (02:00→20:36)
[2018-03-24] MEDS: Pantoprazole 40 mg EC Tab PO SCH (08:53)
--- NOTE | 2018-03-24 09:01 | CON ---
DATE: 03/23/2018 PULMONARY CONSULTATION: REFERRING PHYSICIAN: Dr. Estevez. REASON FOR CONSULTATION: Cough and shortness of breath. HISTORY OF PRESENT ILLNESS: This is an 82-year-old gentleman with past medical history significant for hypertension, dementia, diabetes, bipolar disorder, brought into emergency room because of cough and shortness of breath, and also there is altered mental status. He was found on the floor near the bed. Presently lying in bed. Awake, alert, follows simple command. Has a cough and shortness of breath. No nausea, vomiting, diarrhea, leg pain or swelling. PAST MEDICAL HISTORY: As per history of present illness. ALLERGIES: None known. SOCIAL HISTORY: No history of smoking or alcohol use. FAMILY HISTORY: No significant cardiopulmonary disease reported. MEDICATIONS: He is on Aricept 10 mg daily, aspirin 81 mg daily, Coreg 3.125 mg twice a day, Depakote 750 mg three times a day, DuoNeb every 6 hours, glipizide 2.5 mg daily, insulin coverage, Lasix 40 mg daily, Lipitor 80 mg daily, Pepcid 20 mg daily, Plavix 75 mg daily, Rocephin 1 g daily, Tylenol p.r.n., Zestril 2.5 mg daily. REVIEW OF SYSTEMS: No headache. Has some rhinitis, cough, shortness of breath. No chest pain. No abdominal pain. No dysuria, leg pain or leg swelling. PHYSICAL EXAMINATION: GENERAL: No acute distress. VITAL SIGNS: Temperature is 98, heart rate 81, respiratory rate is 18, blood pressure 104/64, pulse ox 94% on room air. HEENT: Small oral cavity. Crowded airway. NECK: Supple. No JVD. LUNGS: Have scattered rhonchi, does have wheezing. HEART: S1 and S2. ABDOMEN: Soft, nontender. No organomegaly. EXTREMITIES: There is no edema. NEUROLOGIC: Awake and alert, follows simple command. LABORATORY DATA: Shows hemoglobin 15.6, hematocrit 45.7, WBC 23,000 and platelet is 203. INR 1.24. PTT 28. ABG shows pH 7.40, pCO2 of 39, O2 of 50, that is on nasal cannula. Blood sugar 83. LDH 554. Troponin is 0.30. Sodium 142, potassium 4.3, chloride 108, bicarbonate 23, BUN 35, creatinine 1.4, glucose 144, calcium is 8.9, magnesium 1.9, AST 67, ALT 28, alk phos is 51. LDH 620. Creatine kinase 1127. Troponin 0.82. Albumin 3.5. TSH 2.68. Microbiology: Blood culture, urine culture, there is no growth. Has a CTA done which shows no evidence of pulmonary embolism, patchy linear infiltrates over the left lung base which may represent scarring or volume loss with atelectasis and pneumonia. CAT scan of the head was done on admission which shows moderate to severe atrophy, no acute intracranial finding. Has a cervical spine CT done which shows no acute finding. IMPRESSION AND PLAN: Probably has acute bronchitis, rule out pneumonia. Has leukocytosis, fever, history of hypertension, dementia, diabetes, bipolar disorder. Pulmonary point of view, doing okay. Continue inhaled bronchodilator. Continue antibiotics. We will get Speech Therapy to rule out oropharyngeal dysphagia, gastric and DVT prophylaxis, seen by Infectious Diseases and Neurology. Thank you and we will follow with you. Parker Beasley MD
[2018-03-24] MEDS: Divalproex 250 mg DR (BID formulation) PO SCH ×3 (10:14→17:19)
[2018-03-24] MEDS: cefTRIAXone 1 gm 1 GM/100 ML BAG IVPB SCH (10:16)
[2018-03-24] MEDS: Enoxaparin 40 mg Syringe SC SCH (17:11)
--- NOTE | 2018-03-24 18:41 | CP.PCM.PN ---
Subjective - Date & Time of Evaluation Date of Evaluation: 03/24/18 Time of Evaluation: 17:00 - Subjective Subjective: Infectious Disease Follow Up: March 24, 2018 82 yo male sent from [facility] for AMS and after being found on the floor by staff at 8:10 AM 03/22/2018. The patient was reported as awake and alert by skilled nursing staff. Unclear how the patient was found on the floor as the [place] nursing report a few minutes prior showed the patient resting peacefully in bed. longterm reported contusions of right axillary area and abrasion of the left elbow. The patient is alert but confused at this time. He is on a ventimask saturating to 95%. Nursing notes here state that the patient is unsteady when attempting to ambulate. The patient did arrive to [facility] with a WBC of 22.9 on admission. He has been afebrile. Unclear what the patient's baseline mental status is to me. He primarily speaks Hebrew. No new WBC today. Bacillus in one blood culture. Orientated mostly to self. Objective - Vital Signs/Intake and Output Vital Signs (last 24 hours): Temp Pulse Resp BP Pulse Ox 98.0 F 94 H 19 121/58 L 96 03/24/18 12:00 03/24/18 18:00 03/24/18 12:00 03/24/18 17:12 03/24/18 06:00 Intake and Output: 03/24/18 03/24/18 06:59 18:59 Intake Total 1118 Balance 1118 - Medications Medications: Current Medications Acetaminophen (Tylenol 325mg Tab) 650 mg PO Q4H PRN PRN Reason: Temperature Albuterol/Ipratropium (Duoneb 3 Mg/0.5 Mg (3 Ml) Ud) 3 ml IH [id number] [facility] Last Admin: 03/24/18 13:59 Dose: Not Given Aspirin (Aspirin Chewable) 81 mg PO DAILY [facility] Last Admin: 03/24/18 10:15 Dose: 81 mg Atorvastatin Calcium (Lipitor) 80 mg PO DIN [facility] Last Admin: 03/24/18 17:19 Dose: 80 mg Carvedilol (Coreg) 3.125 mg PO BID [facility] Last Admin: 03/24/18 17:12 Dose: 3.125 mg Clopidogrel Bisulfate (Plavix) 75 mg PO DAILY [facility] Last Admin: 03/24/18 10:15 Dose: 75 mg Divalproex Sodium (Depakote Dr (*Bid*)) 750 mg PO TID [facility] Last Admin: 03/24/18 17:19 Dose: 750 mg Donepezil HCl (Aricept) 10 mg PO 1800 [facility] Last Admin: 03/24/18 17:11 Dose: 10 mg Enoxaparin Sodium (Lovenox) 40 mg SC DAILY [facility]; Protocol Last Admin: 03/24/18 17:11 Dose: 40 mg Famotidine (Pepcid) 20 mg PO HS [facility] Last Admin: 03/23/18 22:36 Dose: 20 mg Furosemide (Lasix) 40 mg PO DAILY [facility] Last Admin: 03/24/18 10:16 Dose: 40 mg Glipizide (Glucotrol) 2.5 mg PO DAILY [facility] Last Admin: 03/24/18 10:13 Dose: 2.5 mg Ceftriaxone Sodium (Rocephin 1 Gram Ivpb) 1 gm in 100 mls @ 100 mls/hr IVPB DAILY [facility]; Protocol Last Admin: 03/24/18 10:16 Dose: 100 mls/hr Insulin Human Regular (Humulin R Low) 0 units SC ACHS [facility]; Protocol Last Admin: 03/24/18 16:41 Dose: Not Given Lisinopril (Zestril) 2.5 mg PO DAILY [facility] Last Admin: 03/24/18 10:15 Dose: 2.5 mg Methylprednisolone (Solu-Medrol) 40 mg IVP Q12 [facility] Pantoprazole Sodium (Protonix Ec Tab) 40 mg PO ACB [facility] Last Admin: 03/24/18 08:53 Dose: 40 mg - Labs Labs: 03/22/18 10:00 03/22/18 10:00 PT 14.3 SECONDS (9.4-12.5) H 03/22/18 10:00 INR 1.24 03/22/18 10:00 APTT 28.0 Seconds (25.1-36.5) 03/22/18 10:00 - Constitutional Appears: Non-toxic, No Acute Distress, Confused, Chronically Ill - Head Exam Head Exam: ATRAUMATIC, NORMOCEPHALIC Additional comments: poor dentition with missing teeth. - Eye Exam Eye Exam: EOMI, PERRL Pupil Exam: NORMAL ACCOMODATION, PERRL - ENT Exam ENT Exam: Mucous Membranes Moist, Normal External Ear Exam, TM's Normal Bilaterally - Neck Exam Neck Exam: Full ROM, Normal Inspection - Respiratory Exam Respiratory Exam: Clear to Ausculation Bilateral, NORMAL BREATHING PATTERN. absent: Rales, Rhonchi, Wheezes - Cardiovascular Exam Cardiovascular Exam: REGULAR RHYTHM, RRR, +S1, +S2 - GI/Abdominal Exam GI & Abdominal Exam: Soft, Normal Bowel Sounds. absent: Distended, Tenderness - Extremities Exam Extremities Exam: absent: Joint Swelling, Pedal Edema Additional comments: abrasion to the left elbow, and mild swelling and erythema to the right axillary area. Superficial hematoma/bruise on lower scapular area. - Neurological Exam Neurological Exam: Alert, Awake, CN II-XII Intact Additional comments: AAO x 1, can follow some commands. General weak with gait abnormalities. - Psychiatric Exam Psychiatric exam: Normal Affect, Normal Mood - Skin Additional comments: As above. Assessment and Plan - Assessment and Plan (Free Text) Assessment: 82 yo male found on the floor of the skilled nursing on 01/20/2018 in the AM found to have leukocytosis up to 22.9. No other specific findings. Mild abrasion to the left elbow and mild contusion of hte right axillary area. Afebrile in hospital. The patient appears awake and alert. Started on Rocephin for antibiotic therapy at this time. Supportive care. Urine culture appears to be negative. Blood cultures pending. Continue on Rocephin. Bacillus in one blood culture. Start Clindamycin for treatment. Monitor leukocytosis, repeat WBC in AM. On the whole, the patient appears comfortable at this time. Thank you for allowing me to participate in the care of the patient, we will follow with you.
[2018-03-24] MEDS ORDERED: Clindamycin 600mg/50ml D5W 600 MG/50 ML VIAL IVPB SCH (18:45)
[2018-03-24] MEDS: Clindamycin 600mg/50ml D5W 600 MG/50 ML VIAL IVPB SCH (22:02)
[2018-03-24] MEDS: MethylPREDNISolone 40 mg Vial IVP SCH (22:03)
--- NOTE | 2018-03-24 22:17 | PN ---
DATE: 03/24/2018 PULMONARY PROGRESS NOTE REFERRING PHYSICIAN: January Estevez MD. SUBJECTIVE: She is lying in the bed, sleepy, arousable. Speech therapy note reviewed. Not eating well. Still complaining about cough and shortness of breath. No nausea, vomiting, or diarrhea. No leg pain or leg swelling. PHYSICAL EXAMINATION: GENERAL: In no acute distress. VITAL SIGNS: Temperature is 98, heart rate is 77, respiratory rate 18, blood pressure 91/55, pulse ox 96% on nasal cannula. HEENT: Moist mucous membrane. Crowded airway. Mallampati score is 4. NECK: Supple. No JVD. LUNGS: Have prolonged expiratory phase with some wheezing. HEART: S1 and S2. ABDOMEN: Soft, nontender. No organomegaly. EXTREMITIES: There is no edema. NEUROLOGIC: Awake, alert, and follows simple commands. MEDICATIONS: He is on Aricept 10 mg daily, aspirin 81 mg daily, Coreg 3.125 mg twice a day, Depakote 750 mg twice a day, albuterol and Atrovent nebulizer every 6 hours, glipizide 2.5 mg daily, insulin coverage, Lasix 40 mg daily, Lipitor 80 mg daily, Pepcid 20 mg daily, Plavix 75 mg daily, Protonix 40 mg daily, Rocephin 1 g IV daily, Tylenol p.r.n., and Zestril 2.5 mg daily. LABORATORY DATA: Reviewed. Microbiology, blood culture and urine culture, there is no growth. IMPRESSION AND PLAN: Acute bronchitis, rule out chronic lung disease, hypertension, dementia, diabetes, bipolar disorder. Pulmonary point of view, we will optimize treatment. Continue antibiotics. Aspiration precaution. Gastric prophylaxis, deep venous thrombosis prophylaxis. Follow up labs in the morning. Thank you and we will follow with you. Parker Beasley MD
--- NOTE | 2018-03-24 22:58 | PN ---
DATE: 03/24/2018 SUBJECTIVE: The patient was seen and examined on the bedside on 03/24/2018. The patient is looking comfortable. Cough is better. Shortness of breath is better. No nausea, vomiting, or diarrhea. No hematuria or hematochezia. No swelling of the legs. No chest pain. No palpitation. No headache. No dizziness. PHYSICAL EXAMINATION VITAL SIGNS: Temperature 98, pulse 77, blood pressure 91/55, respiratory rate 19. HEENT: Head normocephalic and atraumatic. Eyes; PERRLA. Extraocular muscles intact. Conjunctivae clear. Nose patent. NECK: Supple. No carotid bruits. No JVD or thyromegaly. CHEST: Bilaterally symmetrical. HEART: S1 and S2 positive. LUNGS: Clear to auscultation. ABDOMEN: Soft. Bowel sounds positive. No organomegaly. EXTREMITIES: No edema. No cyanosis. NEUROLOGIC: The patient is awake and alert. Moving all 4 extremities. No focal deficit. MEDICATIONS: Aricept, aspirin, Coreg, Depakote, Glucotrol, insulin, Lasix, Lipitor, Lovenox, Pepcid, Plavix, Protonix, Rocephin, Solu-Medrol, Zestril. LABORATORY DATA: White blood cells 22.9, hemoglobin 15.6, hematocrit 45.7, and platelets 203. Glucose 107, 112. ASSESSMENT AND PLAN: Mr. Steven Morris is an 82-year-old male with history of schizophrenia, bipolar, depression, history of hypertension, dementia, diabetes mellitus, came with exacerbation of chronic obstructive pulmonary disease, pneumonia, has leukocytosis. Pulmonary is on the case. Continue antibiotics. Continue inhaled bronchodilators. Speech Therapy saw the patient. Gastric and deep vein thrombosis prophylaxis. Discussion done with the patient's nurse. Seen by ID and Neurology. Repeat labs. We will follow up. January Estevez MD
[2018-03-25] MEDS: Clindamycin 600mg/50ml D5W 600 MG/50 ML VIAL IVPB SCH ×3 (05:21→21:36)
[2018-03-25] MEDS: Albuterol-Ipratrop 3 mg / 0.5 (3 ml) UD IH SCH ×3 (08:21→20:21)
[2018-03-25] MEDS: Insulin Reg-LOW-Coverage SC SCH ×3 (10:21→21:34)
[2018-03-25] MEDS: Divalproex 250 mg DR (BID formulation) PO SCH ×3 (10:28→17:54)
[2018-03-25] MEDS: cefTRIAXone 1 gm 1 GM/100 ML BAG IVPB SCH (10:28)
[2018-03-25] MEDS: MethylPREDNISolone 40 mg Vial IVP SCH ×2 (10:30→21:35)
[2018-03-25] MEDS: Enoxaparin 40 mg Syringe SC SCH (10:30)
[2018-03-25] MEDS: Pantoprazole 40 mg EC Tab PO SCH (11:24)
--- NOTE | 2018-03-25 14:30 | CP.PCM.PN ---
Subjective - Date & Time of Evaluation Date of Evaluation: 03/25/18 Time of Evaluation: 14:00 - Subjective Subjective: Infectious Disease Follow Up: March 25, 2018 82 yo male sent from [facility] for AMS and after being found on the floor by staff at 8:10 AM 03/22/2018. The patient was reported as awake and alert by [facility] staff. Unclear how the patient was found on the floor as the CT nursing report a few minutes prior showed the patient resting peacefully in bed. jail reported contusions of right axillary area and abrasion of the left elbow. The patient is alert but confused at this time. He is on a ventimask saturating to 95%. Nursing notes here state that the patient is unsteady when attempting to ambulate. The patient did arrive to [facility] with a WBC of 22.9 on admission. He has been afebrile. Unclear what the patient's baseline mental status is to me. He primarily speaks Danish. No new WBC today. Bacillus in one blood culture. Orientated mostly to self. No additional growth in cultures. Objective - Vital Signs/Intake and Output Vital Signs (last 24 hours): Temp Pulse Resp BP Pulse Ox 98.2 F 69 18 187/97 H 98 03/25/18 06:00 03/25/18 06:00 03/25/18 06:00 03/25/18 12:18 03/25/18 06:00 Intake and Output: 03/25/18 03/25/18 06:59 18:59 Intake Total 720 Output Total 2300 Balance -1580 - Medications Medications: Current Medications Acetaminophen (Tylenol 325mg Tab) 650 mg PO Q4H PRN PRN Reason: Temperature Albuterol/Ipratropium (Duoneb 3 Mg/0.5 Mg (3 Ml) Ud) 3 ml IH [id number] [facility] Last Admin: 03/25/18 08:21 Dose: Not Given Aspirin (Aspirin Chewable) 81 mg PO DAILY [facility] Last Admin: 03/25/18 10:28 Dose: 81 mg Atorvastatin Calcium (Lipitor) 80 mg PO DIN [facility] Last Admin: 03/24/18 17:19 Dose: 80 mg Carvedilol (Coreg) 3.125 mg PO BID [facility] Last Admin: 03/25/18 11:58 Dose: Not Given Clopidogrel Bisulfate (Plavix) 75 mg PO DAILY [facility] Last Admin: 03/25/18 10:28 Dose: 75 mg Divalproex Sodium (Depakote Dr (*Bid*)) 750 mg PO TID [facility] Last Admin: 03/25/18 10:28 Dose: 750 mg Donepezil HCl (Aricept) 10 mg PO 1800 [facility] Last Admin: 03/24/18 17:11 Dose: 10 mg Enoxaparin Sodium (Lovenox) 40 mg SC DAILY [facility]; Protocol Last Admin: 03/25/18 10:30 Dose: 40 mg Famotidine (Pepcid) 20 mg PO HS [facility] Last Admin: 03/24/18 22:03 Dose: 20 mg Furosemide (Lasix) 40 mg PO DAILY [facility] Last Admin: 03/25/18 12:18 Dose: 40 mg Glipizide (Glucotrol) 2.5 mg PO DAILY [facility] Last Admin: 03/25/18 10:29 Dose: 2.5 mg Ceftriaxone Sodium (Rocephin 1 Gram Ivpb) 1 gm in 100 mls @ 100 mls/hr IVPB DAILY [facility]; Protocol Last Admin: 03/25/18 10:28 Dose: 100 mls/hr Clindamycin Phosphate (Cleocin) 600 mg in 50 mls @ 50 mls/hr IVPB Q8H [facility]; Protocol Last Admin: 03/25/18 05:21 Dose: 50 mls/hr Insulin Human Regular (Humulin R Low) 0 units SC ACHS [facility]; Protocol Last Admin: 03/25/18 11:58 Dose: Not Given Lisinopril (Zestril) 2.5 mg PO DAILY [facility] Last Admin: 03/25/18 12:18 Dose: 2.5 mg Methylprednisolone (Solu-Medrol) 40 mg IVP Q12 [facility] Last Admin: 03/25/18 10:30 Dose: 40 mg Pantoprazole Sodium (Protonix Ec Tab) 40 mg PO ACB [facility] Last Admin: 03/25/18 11:24 Dose: 40 mg - Labs Labs: 03/22/18 10:00 03/22/18 10:00 PT 14.3 SECONDS (9.4-12.5) H 03/22/18 10:00 INR 1.24 03/22/18 10:00 APTT 28.0 Seconds (25.1-36.5) 10/11/18 10:00 - Constitutional Appears: Non-toxic, No Acute Distress, Confused, Chronically Ill - Head Exam Head Exam: ATRAUMATIC, NORMOCEPHALIC Additional comments: poor dentition with missing teeth. - Eye Exam Eye Exam: EOMI, PERRL Pupil Exam: NORMAL ACCOMODATION, PERRL - ENT Exam ENT Exam: Mucous Membranes Moist, Normal External Ear Exam, TM's Normal Bilaterally - Neck Exam Neck Exam: Full ROM, Normal Inspection - Respiratory Exam Respiratory Exam: Clear to Ausculation Bilateral, NORMAL BREATHING PATTERN. absent: Rales, Rhonchi, Wheezes - Cardiovascular Exam Cardiovascular Exam: REGULAR RHYTHM, RRR, +S1, +S2 - GI/Abdominal Exam GI & Abdominal Exam: Soft, Normal Bowel Sounds. absent: Distended, Tenderness - Extremities Exam Extremities Exam: absent: Joint Swelling, Pedal Edema Additional comments: abrasion to the left elbow, and mild swelling and erythema to the right axillary area. Superficial hematoma/bruise on lower scapular area. - Neurological Exam Neurological Exam: Alert, Awake, CN II-XII Intact Additional comments: AAO x 1, can follow some commands. General weak with gait abnormalities. - Skin Additional comments: As above. Assessment and Plan - Assessment and Plan (Free Text) Assessment: 82 yo male found on the floor of the [place] [facility] on 01/20/2018 in the AM found to have leukocytosis up to 22.9. No other specific findings. Mild abrasion to the left elbow and mild contusion of hte right axillary area. Afebrile in hospital. The patient appears awake and alert. Started on Rocephin for antibiotic therapy at this time. Supportive care. Urine culture appears to be negative. Blood cultures pending. Continue on Rocephin. Bacillus in one blood culture. Continue Clindamycin for treatment. Monitor leukocytosis, repeat WBC. On the whole, the patient appears comfortable at this time. Thank you for allowing me to participate in the care of the patient, we will follow with you.
--- NOTE | 2018-03-25 21:18 | PN ---
DATE: 03/25/2018 PULMONARY PROGRESS NOTE REFERRING PHYSICIAN: January Estevez MD. SUBJECTIVE: The patient is lying in the bed, head at 45 degrees. Spoke to the nursing staff. Refusing nebulizer treatment. Still having cough and shortness of breath. No nausea, no vomiting, no diarrhea. No leg pain or leg swelling. PHYSICAL EXAMINATION: GENERAL: In no acute distress. VITAL SIGNS: Temperature is 98, heart rate is 81, respiratory rate is 18, blood pressure 187/97, pulse ox 98% on nasal cannula. HEENT: Moist mucous membrane. Crowded airway. Mallampati score is 4. NECK: Supple. No JVD. LUNGS: Have a prolonged expiratory phase with some rhonchi and wheezing. HEART: S1 and S2. ABDOMEN: Soft, nontender. No organomegaly. EXTREMITIES: There is no edema. NEUROLOGIC: Awake, alert. Follows simple commands. MEDICATIONS: He is on Aricept 10 mg daily, aspirin 81 mg daily, Cleocin 600 mg every 8 hours, Coreg 3.125 mg twice a day. He is getting Depakote 750 mg three times a day, refusing DuoNeb, glipizide 2.5 mg daily, insulin coverage, Lasix 40 mg daily, Lipitor 80 mg daily, Lovenox 40 mg daily, Pepcid 20 mg at bedtime, Plavix 75 mg daily, Protonix 40 mg daily, Solu-Medrol 40 mg every 12 hours, Tylenol p.r.n., and Zestril 2.5 mg daily. LABORATORY DATA: Reviewed. Blood sugar this morning 174. Blood culture, one out of two has bacillus species. Urine, no growth. IMPRESSION AND PLAN: Acute bronchitis, probably has a chronic lung disease, hypertension, dementia, diabetes, bipolar disorder. Noncompliant with medication. Refusing nebulizer treatment. Has bacilli in the blood, one out of two bottles. Being followed by Infectious Diseases. Aspiration precaution. Gastric prophylaxis, deep venous thrombosis prophylaxis. Out of bed to chair if possible. Fall precaution. Follow up labs in the morning. Thank you and we will follow with you. Parker Beasley MD [facility] # [id number]
[2018-03-26] MEDS: Albuterol-Ipratrop 3 mg / 0.5 (3 ml) UD IH SCH ×4 (02:20→21:22)
[2018-03-26] MEDS: Clindamycin 600mg/50ml D5W 600 MG/50 ML VIAL IVPB SCH ×3 (05:33→21:50)
[2018-03-26 07:11] LABS: MEAN CELL VOLUME 103.5 fl (80.0-105.0); MEAN CORPUSCULAR HEMOGLOBIN 34.3 pg (25.0-35.0); MEAN CORPUSCULAR HGB CONC 33.2 g/dl (31.0-37.0); MEAN PLATELET VOLUME 10.5 fl (7.0-11.0); RBC 3.73 10^6/uL (3.5-6.1); RED CELL DISTRIBUTION WIDTH 13.3 % (11.5-14.5); WHITE BLOOD COUNT 16.4 10^3/ul (4.5-11.0)
[2018-03-26 07:19] LABS: HEMOGLOBIN 12.8 g/dL (14.0-18.0)
[2018-03-26] MEDS: Insulin Reg-LOW-Coverage SC SCH ×4 (07:30→22:14)
[2018-03-26 07:41] LABS: ALB/GLOB RATIO 0.9 (1.1-1.8); ALBUMIN 2.7 g/dL (3.0-4.8); ALT/SGPT 37 U/L (7-56); AST/SGOT 64 U/L (17-59); BLOOD UREA NITROGEN 31 mg/dL (7-21); CALCIUM 8.4 mg/dL (8.4-10.5); GFR NON-AFRICAN AMERICAN > 60
[2018-03-26] MEDS: Divalproex 250 mg DR (BID formulation) PO SCH ×3 (10:04→18:39)
[2018-03-26] MEDS: Pantoprazole 40 mg EC Tab PO SCH (10:05)
[2018-03-26] MEDS: Enoxaparin 40 mg Syringe SC SCH ×2 (10:08→10:18)
[2018-03-26] MEDS: MethylPREDNISolone 40 mg Vial IVP SCH ×2 (10:08→21:12)
--- NOTE | 2018-03-26 10:27 | PN ---
DATE: 03/23/2018 SUBJECTIVE: Patient is an 82-year-old male. Patient was seen and examined on the bedside on 03/23/2018, a little bit lethargic. Otherwise, awake. No fever. No chills. No nausea, vomiting, or diarrhea. No hematuria or hematochezia. Patient is a very poor historian. PHYSICAL EXAMINATION: VITAL SIGNS: Temperature is 98.4, pulse 73, blood pressure 94/58, respiratory rate 18. HEENT: Head: Normocephalic, atraumatic. Eyes: PERRLA. Extraocular muscles intact. Conjunctivae clear. Nose patent. Mucous membrane moist. NECK: Supple. No carotid bruit. No JVD or thyromegaly. CHEST: Bilaterally symmetrical. HEART: S1 and S2 positive. LUNGS: Clear to auscultation. ABDOMEN: Soft. Bowel sounds present. No organomegaly. EXTREMITIES: No edema. No cyanosis. NEUROLOGIC: Patient is awake and alert. Follows simple command. LABORATORY DATA: White blood cells noted , hemoglobin 15.6, hematocrit 45.7, platelets 203. Sodium 142, potassium 4.2, BUN 35, creatinine 1.4. ASSESSMENT AND PLAN: Mr. Steven Morris is an 82-year-old male with history of hypertension, diabetes mellitus type 2, bipolar disorder, anxiety, schizophrenia, hypercholesterolemia, hypertension, was found confused on the floor, leukocytosis, rule out sepsis. Called Neurology as the patient's current altered mental status is likely secondary to toxic metabolic encephalopathy, superimposed underlying severe cognitive impairment and dementia. Patient is a very poor historian and has dementia. ID is on the case. Cultures are done, pending. Delirium precautions. History of abdominal wall ventral hernia, urinary incontinence, hypercholesterolemia, Getting Rocephin. Urine culture appears to be negative. Blood culture is pending. To remain on Rocephin as per ID. Monitoring leukocytosis and repeat white blood cells in the a.m. We will continue present treatment. Medications are reviewed by me. Continue albuterol, Aricept, aspirin, Ativan, Coreg, Depakote, glipizide, insulin, Lasix, atorvastatin, Plavix, pantoprazole, Zestril. Gastrointestinal and deep venous thrombosis prophylaxes. Repeat labs. We will follow up. January Estevez MD [facility]
--- NOTE | 2018-03-26 16:53 | CP.PCM.PN ---
Subjective - Date & Time of Evaluation Date of Evaluation: 03/26/18 Time of Evaluation: 16:00 - Subjective Subjective: Infectious Disease Follow Up: March 26, 2018 82 [facility] and after being found on the floor by staff at 8:10 AM 03/22/2018. The patient was reported as awake and alert by jail staff. Unclear how the patient was found on the floor as the [facility] nursing report a few minutes prior showed the patient resting peacefully in bed. [facility] reported contusions of right axillary area and abrasion of the left elbow. The patient is alert but confused at this time. He is on a ventimask saturating to 95%. Nursing notes here state that the patient is unsteady when attempting to ambulate. The patient did arrive to [facility] with a WBC of 22.9 on admission. He has been afebrile. Unclear what the patient's baseline mental status is to me. He primarily speaks Greenlandic. WBC down to 16.4 today. Bacillus in one blood culture. Orientated mostly to self. No additional growth in cultures. Objective - Vital Signs/Intake and Output Vital Signs (last 24 hours): Temp Pulse Resp BP Pulse Ox 97.6 F 73 97 H 144/78 95 03/26/18 12:00 03/26/18 12:00 03/26/18 12:00 03/26/18 12:00 03/26/18 06:00 Intake and Output: 03/26/18 03/26/18 06:59 18:59 Intake Total 1470 Output Total 150 Balance 1320 - Medications Medications: Current Medications Acetaminophen (Tylenol 325mg Tab) 650 mg PO Q4H PRN PRN Reason: Temperature Albuterol/Ipratropium (Duoneb 3 Mg/0.5 Mg (3 Ml) Ud) 3 ml IH [id number] [facility] Last Admin: 03/26/18 14:25 Dose: Not Given Aspirin (Aspirin Chewable) 81 mg PO DAILY [facility] Last Admin: 03/26/18 10:04 Dose: 81 mg Atorvastatin Calcium (Lipitor) 80 mg PO DIN [facility] Last Admin: 03/25/18 17:55 Dose: 80 mg Carvedilol (Coreg) 3.125 mg PO BID [facility] Last Admin: 03/26/18 10:04 Dose: 3.125 mg Clopidogrel Bisulfate (Plavix) 75 mg PO DAILY [facility] Last Admin: 03/26/18 10:04 Dose: 75 mg Divalproex Sodium (Depakote Dr (*Bid*)) 750 mg PO TID [facility] Last Admin: 03/26/18 15:00 Dose: 750 mg Donepezil HCl (Aricept) 10 mg PO 1800 [facility] Last Admin: 03/25/18 17:55 Dose: 10 mg Enoxaparin Sodium (Lovenox) 40 mg SC DAILY [facility]; Protocol Last Admin: 03/26/18 10:18 Dose: Not Given Famotidine (Pepcid) 20 mg PO HS [facility] Last Admin: 03/25/18 21:36 Dose: 20 mg Furosemide (Lasix) 40 mg PO DAILY [facility] Last Admin: 03/26/18 10:05 Dose: 40 mg Glipizide (Glucotrol) 2.5 mg PO DAILY [facility] Last Admin: 03/26/18 10:04 Dose: 2.5 mg Clindamycin Phosphate (Cleocin) 600 mg in 50 mls @ 50 mls/hr IVPB Q8H [facility]; Protocol Last Admin: 03/26/18 13:00 Dose: 50 mls/hr Insulin Human Regular (Humulin R Low) 0 units SC ACHS [facility]; Protocol Last Admin: 03/26/18 11:30 Dose: Not Given Lisinopril (Zestril) 2.5 mg PO DAILY [facility] Last Admin: 03/26/18 10:05 Dose: 2.5 mg Methylprednisolone (Solu-Medrol) 40 mg IVP Q12 [facility] Last Admin: 03/26/18 10:08 Dose: 40 mg Pantoprazole Sodium (Protonix Ec Tab) 40 mg PO ACB [facility] Last Admin: 03/26/18 10:05 Dose: 40 mg - Labs Labs: 03/26/18 07:00 03/26/18 07:00 PT 14.3 SECONDS (9.4-12.5) H 03/22/18 10:00 INR 1.24 03/22/18 10:00 APTT 28.0 Seconds (25.1-36.5) 03/22/18 10:00 - Constitutional Appears: Non-toxic, No Acute Distress, Chronically Ill - Head Exam Head Exam: ATRAUMATIC, NORMOCEPHALIC - Eye Exam Eye Exam: EOMI, PERRL Pupil Exam: NORMAL ACCOMODATION, PERRL - ENT Exam ENT Exam: Mucous Membranes Moist, Normal External Ear Exam, TM's Normal Bilaterally - Neck Exam Neck Exam: Full ROM, Normal Inspection - Respiratory Exam Respiratory Exam: Clear to Ausculation Bilateral, NORMAL BREATHING PATTERN. absent: Rales, Rhonchi, Wheezes - Cardiovascular Exam Cardiovascular Exam: REGULAR RHYTHM, RRR, +S1, +S2 - GI/Abdominal Exam GI & Abdominal Exam: Soft, Normal Bowel Sounds. absent: Distended, Tenderness - Extremities Exam Extremities Exam: absent: Joint Swelling, Pedal Edema Additional comments: abrasion to the left elbow, and mild swelling and erythema to the right axillary area. Superficial hematoma/bruise on lower scapular area. - Neurological Exam Neurological Exam: Alert, Awake, CN II-XII Intact Additional comments: AAO x 1, can follow some commands. General weak with gait abnormalities. - Psychiatric Exam Additional comments: Confused. - Skin Additional comments: As above. Assessment and Plan - Assessment and Plan (Free Text) Assessment: 82 yo male [facility] on 01/20/2018 in the AM found to have leukocytosis up to 22.9. No other specific findings. Mild abrasion to the left elbow and mild contusion of hte right axillary area. Afebrile in hospital. The patient appears awake and alert. Started on Rocephin for antibiotic therapy at this time. Supportive care. Urine culture appears to be negative. Blood cultures pending. Continue on Rocephin. Bacillus in one blood culture. Continue Clindamycin for treatment. Consider up to 14 days of treatment. Monitor leukocytosis, repeat WBC. On the whole, the patient appears comfortable at this time. Thank you for allowing me to participate in the care of the patient, we will follow with you.
--- NOTE | 2018-03-26 17:51 | CARD ---
APPROVED REPORT Date of service: 03/26/2018 EXAM: Two-dimensional and M-mode echocardiogram with Doppler and color Doppler. INDICATION Infection:Rule out subacute bacterial endocarditis 2D DIMENSIONS IVSd1.1 (0.7-1.1cm)LVDd5.4 (3.9-5.9cm) PWd1.1 (0.7-1.1cm) M-Mode DIMENSIONS Aortic Root3.60 (2.2-3.7cm)Aortic Cusp Exc.1.50 (1.5-2.0cm) Mitral Valve E/A ratio0.0 TDI E/Lateral E'0.0E/Medial E'0.0 Pulmonary Valve PV Peak [id number]/sPV Peak Grad.2mmHg Tricuspid Valve TR Peak [id number] [id number] Peak Gr.27mmHg [id number] LEFT VENTRICLE The left ventricle is normal size. There is normal left ventricular wall thickness. The left ventricular function is normal. The left ventricular ejection fraction is within the normal range. There is normal LV segmental wall motion. Transmitral Doppler flow pattern is Grade I-abnormal relaxation pattern. RIGHT VENTRICLE The right ventricle is normal size. There is normal right ventricular wall thickness. The right ventricular systolic function is normal. ATRIA The left atrium size is normal. The right atrium size is normal. AORTIC VALVE The aortic valve is moderately to severely thickened. No aortic regurgitation is present. There is no aortic valvular stenosis. MITRAL VALVE The mitral valve is moderately thickened. There is no mitral valve regurgitation noted. There is no mitral valve stenosis. TRICUSPID VALVE The tricuspid valve is normal in structure. There is mild tricuspid regurgitation. There is mild pulmonary hypertension. GREAT VESSELS The aortic root is normal in size. PERICARDIAL EFFUSION There is a small loculated anterior pericardial effusion. <Conclusion> The aortic valve is moderately to severely thickened. The mitral valve is moderately thickened. There is mild tricuspid regurgitation. There is mild pulmonary hypertension. No vegitation seen
[2018-03-27 01:18] VITALS: O2SAT 94
[2018-03-27] MEDS: Albuterol-Ipratrop 3 mg / 0.5 (3 ml) UD IH SCH ×3 (01:31→14:06)
--- NOTE | 2018-03-27 01:58 | PN ---
DATE: 03/26/2018 PULMONARY PROGRESS NOTE REFERRING PHYSICIAN: January Estevez MD SUBJECTIVE: He is lying in the bed, head at 45 degrees. Night was unremarkable. Still have cough and shortness of breath. Refusing nebulizer treatment. No hemoptysis, no hematemesis. No hematuria and diarrhea reported. OBJECTIVE: GENERAL: In no acute distress. VITAL SIGNS: Temperature is 98, heart rate is 73, respiratory rate is 20, blood pressure is 144/78, pulse ox 97% on nasal cannula. HEENT: Moist mucous membrane. Crowded airway. NECK: Supple. No JVD. LUNGS: Have scattered rhonchi, prolonged expiratory phase with some wheezing. HEART: S1 and S2. ABDOMEN: Soft, nontender, no organomegaly. EXTREMITIES: No edema. NEUROLOGIC: Awake, alert, follows simple command. MEDICATIONS: He is on Aricept 10 mg daily, aspirin 81 mg daily, Cleocin 600 mg every 8 hours, Coreg 3.125 mg twice a day, Depakote 750 mg three times a day, DuoNeb every 6 hours, glipizide 2.5 mg daily, insulin coverage, Lasix 40 mg daily, atorvastatin 80 mg daily, Lovenox 40 mg subcu daily, Pepcid 20 mg daily, Plavix 75 mg daily, Protonix 40 mg daily, Solu-Medrol 40 mg every 12 hours, Tylenol p.r.n., Zestril 2.5 mg daily. LABORATORY DATA: Shows hemoglobin 12.8, hematocrit 38.6, WBC 16.4, platelet count is 198. Sodium 138, potassium 4.8, chloride 104, bicarbonate 31, BUN 31, creatinine 0.8, glucose 134, calcium is 8.4, phosphorus 3.5, magnesium 2.1, AST 64, ALT 37, alk phos is 43. Albumin is 2.7. Microbiology, blood culture one out of two has bacillus species. Echocardiogram was done today, which shows right ventricular systolic pressure is 37, left ventricle is normal wall thickening, function is normal, ejection fraction is within normal limits, mild valvular heart disease. IMPRESSION AND PLAN: Acute bronchitis, probably has a chronic lung disease, hypertension, dementia, diabetes, bipolar disorder, noncompliant with inhaled bronchodilator. Continue antibiotics. Keep head at 45 degrees. IV and bronchodilator. Gastric prophylaxis, deep vein thrombosis prophylaxis. We will suggest incentive spirometer. Out of bed to chair. We will get physical therapy involved. Aspiration precaution. Thank you and we will follow with you. Parker Beasley MD
[2018-03-27] MEDS: Clindamycin 600mg/50ml D5W 600 MG/50 ML VIAL IVPB SCH (05:32)
[2018-03-27 06:10] VITALS: PULSE 61; RESP 19; TEMP 97.9
[2018-03-27] MEDS: Insulin Reg-LOW-Coverage SC SCH (08:32)
--- NOTE | 2018-03-27 08:44 | PN ---
DATE: 03/26/2018 SUBJECTIVE: Patient is seen and examined at bedside on 03/26/2018, looking better, more awake and alert. No fever, no chills. He is saying only one thing that "I am sick," but is not able to explain his sickness. No hematuria, no hematochezia. PHYSICAL EXAMINATION: VITAL SIGNS: Temperature 97.6, pulse 73, respiratory rate 188, blood pressure 144/78, pulse oximetry 95. HEENT: Head: Normocephalic, atraumatic. Eyes: PERRLA. Extraocular muscles intact. Conjunctivae clear. Nose patent. Mucous membrane moist. NECK: Supple. No carotid bruit. No JVD or thyromegaly. CHEST: Bilaterally symmetrical. HEART: S1 and S2 positive. LUNGS: Clear to auscultation. ABDOMEN: Soft. Bowel sounds positive. No organomegaly. EXTREMITIES: No edema. No cyanosis. NEUROLOGIC: Patient is awake, alert. Follows simple commands. MEDICATIONS: Tylenol, DuoNeb, aspirin, Lipitor, Coreg, Plavix, Depakote, Aricept, Lovenox, Pepcid, Lasix, glipizide, clindamycin, Zestril. LABORATORY DATA: White blood cell is 16.4. hemoglobin 12.8, hematocrit 38.6, platelets 198. Sodium 138, potassium 4.8, BUN 31, creatinine 0.8, glucose 134. ASSESSMENT AND PLAN: Mr. Steven Morris, 82-year-old male with leukocytosis, anemia, hyperglycemia, increased BUN. Urine culture appears to be negative. Continue Rocephin. Bacillus in one of the blood cultures, continue clindamycin for treatment. Consider up to 14 days of treatment. Monitor leukocytes and repeat CBC. Patient has history of schizophrenia, bipolar, chronic obstructive pulmonary disease. Continue antibiotics as per Infectious Disease, Dr. Broussard. Has acute bronchitis, dementia. Noncompliant with medication, not taking nebulizer treatment. Has bacillus in the blood, in one of the two bottles, being followed by Infectious Disease. Aspiration precautions, gastric prophylaxis, out of bed, physical therapy, fall precautions. We will follow up. January Estevez MD [id number]
[2018-03-27] MEDS: Pantoprazole 40 mg EC Tab PO SCH (09:17)
[2018-03-27] MEDS: Divalproex 250 mg DR (BID formulation) PO SCH ×2 (09:18→13:57)
[2018-03-27] MEDS: MethylPREDNISolone 40 mg Vial IVP SCH (09:19)
[2018-03-27] MEDS: Enoxaparin 40 mg Syringe SC SCH (09:19)
[2018-03-27 09:30] VITALS: BP 123/66
--- NOTE | 2018-03-27 17:56 | CP.PCM.PN ---
Subjective - Date & Time of Evaluation Date of Evaluation: 03/27/18 Time of Evaluation: 15:00 - Subjective Subjective: Infectious Disease Follow Up: March 27, 2018 82 yo male sent from [facility] for AMS and after being found on the floor by staff at 8:10 AM 03/22/2018. The patient was reported as awake and alert by halfway staff. Unclear how the patient was found on the floor as the [facility] nursing report a few minutes prior showed the patient resting peacefully in bed. shelter reported contusions of right axillary area and abrasion of the left elbow. The patient is alert but confused at this time. He is on a ventimask saturating to 95%. Nursing notes here state that the patient is unsteady when attempting to ambulate. The patient did arrive to [facility] with a WBC of 22.9 on admission. He has been afebrile. Unclear what the patient's baseline mental status is to me. He primarily speaks Persian. WBC down to 16.4 yesterday. Bacillus in one blood culture. Orientated mostly to self. No additional growth in cultures. Objective - Vital Signs/Intake and Output Vital Signs (last 24 hours): Temp Pulse Resp BP Pulse Ox 97.9 F 61 19 123/66 94 L 03/27/18 06:00 03/27/18 06:00 03/27/18 06:00 03/27/18 09:28 03/27/18 06:00 Intake and Output: 03/27/18 03/27/18 06:59 18:59 Intake Total 280 Balance 280 - Labs Labs: 03/26/18 07:00 03/26/18 07:00 PT 14.3 SECONDS (9.4-12.5) H 03/22/18 10:00 INR 1.24 03/22/18 10:00 APTT 28.0 Seconds (25.1-36.5) 03/22/18 10:00 - Constitutional Appears: Non-toxic, No Acute Distress, Chronically Ill - Head Exam Head Exam: ATRAUMATIC, NORMOCEPHALIC - Eye Exam Eye Exam: EOMI, PERRL Pupil Exam: NORMAL ACCOMODATION, PERRL - ENT Exam ENT Exam: Mucous Membranes Moist, Normal External Ear Exam, TM's Normal Bilaterally - Neck Exam Neck Exam: Full ROM, Normal Inspection - Respiratory Exam Respiratory Exam: Clear to Ausculation Bilateral, NORMAL BREATHING PATTERN. absent: Rales, Rhonchi, Wheezes - Cardiovascular Exam Cardiovascular Exam: REGULAR RHYTHM, RRR, +S1, +S2 - GI/Abdominal Exam GI & Abdominal Exam: Soft, Normal Bowel Sounds. absent: Distended, Tenderness - Extremities Exam Extremities Exam: absent: Joint Swelling, Pedal Edema Additional comments: abrasion to the left elbow, and mild swelling and erythema to the right axillary area. Superficial hematoma/bruise on lower scapular area. - Neurological Exam Neurological Exam: Alert, Awake, CN II-XII Intact Additional comments: AAO x 1, can follow some commands. General weak with gait abnormalities. - Psychiatric Exam Additional comments: Confused - Skin Additional comments: As above. Assessment and Plan - Assessment and Plan (Free Text) Assessment: 82 yo male found on the floor of the halfway on 01/20/2018 in the AM found to have leukocytosis up to 22.9. No other specific findings. Mild abrasion to the left elbow and mild contusion of hte right axillary area. Afebrile in hospital. The patient appears awake and alert. Started on Rocephin for antibiotic therapy at this time. Supportive care. Urine culture appears to be negative. Blood cultures pending. Continue on Rocephin. Bacillus in one blood culture. Continue Clindamycin for treatment. Consider up to 14 days of treatment. Monitor leukocytosis, repeat WBC. Leukocytosis improving. On the whole, the patient appears comfortable at this time. Thank you for allowing me to participate in the care of the patient, we will follow with you.
== END 2018-03-27 14:42 | DRG 202 ==
LOC: ED 09:34 → ERH 13:52 → 2RSO 19:07
PROVIDERS: ADMIT Internal Medicine; ATTEND Internal Medicine
PROC: 3E0F7GC Introduction of Other Therapeutic Substance into Respiratory Tract, Via Natural or Artificial Opening (ICD-10-PCS; principal; 2018-03-23)
DX: J20.9 Acute bronchitis, unspecified (principal); G92 Toxic encephalopathy; J44.0 Chronic obstructive pulmonary disease with (acute) lower respiratory infection; F03.90 Unspecified dementia, unspecified severity, without behavioral disturbance, psychotic disturbance, mood disturbance, and anxiety; I10 Essential (primary) hypertension; F31.9 Bipolar disorder, unspecified; E11.65 Type 2 diabetes mellitus with hyperglycemia; R80.9 Proteinuria, unspecified; R31.9 Hematuria, unspecified; E11.42 Type 2 diabetes mellitus with diabetic polyneuropathy; R41.89 Other symptoms and signs involving cognitive functions and awareness; S50.312A Abrasion of left elbow, initial encounter; S40.021A Contusion of right upper arm, initial encounter; E78.5 Hyperlipidemia, unspecified; E78.00 Pure hypercholesterolemia, unspecified; D64.9 Anemia, unspecified; Z91.14 Patient's other noncompliance with medication regimen; Z86.73 Personal history of transient ischemic attack (TIA), and cerebral infarction without residual deficits; Z79.02 Long term (current) use of antithrombotics/antiplatelets; Z91.19 Patient's noncompliance with other medical treatment and regimen; Z91.81 History of falling; W19.XXXA Unspecified fall, initial encounter; Y92.129 Unspecified place in nursing home as the place of occurrence of the external cause